=== PATIENT | female | born 1955 | race Caucasian/White ===

== ENCOUNTER 2020-01-29 17:40 | Emergency (ER) | payer MEDICARE, MEDICAID, SELFPAY ==
[2020-01-29] VITALS (17 sets, daily range): BP systolic 82–134; BP diastolic 51–97; PULSE 77–90; RESP 14–21; TEMP 36.4; O2SAT 93–100; BMI 36.4
--- NOTE | 2020-01-29 17:49 | CTR_ITS ---
PROCEDURE INFORMATION: Exam: CT Head Without Contrast Exam date and time: 01/29/2020 5:50 PM Age: 64 years old Clinical indication: Syncope and collapse; Patient HX: Syncope w fall this am C/O hitting top of head L of center; Additional info: Fall, hit head TECHNIQUE: Imaging protocol: Computed tomography of the head without contrast. Radiation optimization: All CT scans at this facility use at least one of these dose optimization techniques: automated exposure control; mA and/or kV adjustment per patient size (includes targeted exams where dose is matched to clinical indication); or iterative reconstruction. COMPARISON: CT head wo con* [id number] 03/03/2017 4:37 PM RADIATION DOSE METRICS: Total DLP (mGy-cm): 794.72 FINDINGS: Brain: There is moderate cortical atrophy. Low-density changes in the white matter are consistent with nonspecific small vessel chronic ischemic change. There is no intracranial mass, hemorrhage or edema. Small old lacunar infarcts of seen in the basal ganglia and burdick radiata bilaterally. Cerebral ventricles: No ventriculomegaly. Bones/joints: Unremarkable. No acute fracture. Paranasal sinuses: There is opacification of visualized portions of the maxillary ethmoid and frontal and sphenoid sinuses in keeping with pansinusitis. Mastoid air cells: Visualized mastoid air cells are well aerated. Soft tissues: Unremarkable. CT/CT head wo con* [id number] IMPRESSION: 1. Old lacunar disease. No acute intracranial finding. 2. Pansinusitis. Radiation Dose CTDIVOL = (mGy): DLP = 794.72 (mGy-cm)
--- NOTE | 2020-01-29 17:49 | XRR_ITS ---
PROCEDURE INFORMATION: Exam: XR Chest, 1 View Exam date and time: 01/29/2020 6:03 PM Age: 64 years old Clinical indication: Cough and other: Syncope; Patient HX: C/O multiple syncope episode w n/v - persistent cough x 3 weeks; Additional info: Vomiting, syncope TECHNIQUE: Imaging protocol: XR of the chest Views: 1 view. COMPARISON: CR Chest 2 views* [id number] 06/24/2017 10:13 AM FINDINGS: Lungs: Unremarkable. No consolidation. Pleural space: Unremarkable. No pleural effusion. No pneumothorax. Heart/Mediastinum: Unremarkable. No cardiomegaly. Bones/joints: Metallic pins seen in the right proximal humerus stable since prior examination XR/XR chest 1V portable [id number] IMPRESSION: 1. No acute findings. 2. Metallic pins right proximal humerus
--- NOTE | 2020-01-29 17:50 | ED_ITS ---
HPI - Syncope General: Stated Complaint: ANXIETY; SYNCOPE Time Seen by Provider: 01/29/20 17:42 History of Present Illness: HPI narrative: This patient is a 64-year-old female who comes in today after multiple episodes of passing out. She said she is passed out 3 times since last night. These typically occur when she has been standing for a while. She develops nausea and then sometimes vomiting. Things become black and she passes out. Today she fell and struck the back of her head. She said she started having problems with passing out a few months ago and has had a few episodes. She saw a neurologist and was told there was nothing wrong with her brain. She has not had a cardiology work-up. She is a diabetic. She says that for the past 3 days she has not been able to eat because she has no appetite. She has had episodes of nausea and vomiting over that period of time. She denies any exposure to Covid. She has not had a fever. She has had a cough but it has been there for about 3 weeks. It started out productive and now is dry. She said she was tested for Covid but it has been sometime since the test. She is not sure how long. She denies chest pain. No diarrhea. No change in urinary habits. No leg pain or swelling. complaint: loss of consciousness Onset (ago): day(s) (3 times in the past day) Prodromal symptoms: vision changes, lightheaded and nausea/vomiting Context: standing up Injuries sustained associated with event: head Associated symptoms: Reports nausea and weakness; Deny chest pain, fever(s) or headache(s) Review of Systems General: Reports: 10 or more systems reviewed and unremarkable except in HPI and below Const: Reports: fatigue and malaise; Denies: fever(s) or chills Eyes: Denies: change in vision ENMT: Denies: odynophagia Card: Denies: chest pain or swelling of feet/ankles Resp: Reports: productive cough; Denies: dyspnea or non-productive cough GI: Reports: nausea and vomiting; Denies: diarrhea : Denies: flank pain or difficulty voiding Musc: Denies: neck pain or back pain Skin/Breast: Denies: rash Neuro: Denies: headache(s), numbness in extremities or weakness in extremities Joe/Lymph: Denies: easy bruising or easy bleeding Physical Exam Const: COMMON NORMALS: no acute distress, patient oriented x3, no limitations and alert GENERAL APPEARANCE: cooperative and comfortable HENMT: HEAD & SCALP: normal to inspection FACE & SINUS: normal facial exam Eye: GENERAL EYE: appearance normal, both eyes and all related structures Neck/C-Spine: COMMON NORMALS: supple, no meningeal signs and no JVD Chest: COMMONS NORMALS: normal inspection of the chest Resp: COMMON NORMALS: normal respiratory effort, No use of accessory muscles and clear to auscultation bilaterally AUSCULTATION: clear to auscultation bilaterally Cardio: COMMON NORMALS: no JVD, regular rate, regular rhythm and No murmurs present (Cardio) RATE: regular rate RHYTHM: regular rhythm GI: COMMON NORMALS: Normal to inspection, nondistended, normoactive bowel sounds present and Soft to palpation INSPECTION: Yes normal to inspection AUSCULTATION: Yes normoactive bowel sounds PALPATION: Yes Soft to palpation and Yes Tenderness to palpation present (GI) (Epigastric area) Back/Pelvis: COMMON NORMALS: thoracic and lumbar spine normal to inspection Extremity: COMMON NORMALS: normal to inspection Neuro: COMMON NORMALS: patient oriented x3, moves all extremities, no focal motor deficits and no sensory deficits noted SENSORIUM/ORIENTATION: Yes alert MENINGEAL SIGNS: Yes no meningeal signs Psych: COMMON NORMALS: mental status grossly normal, cooperative and normal affect Skin: COMMON NORMALS: no rashes or lesions noted and turgor normal GENERAL SKIN EXAM: no rashes or lesions noted and turgor normal Course ED course: This is a diabetic patient who has had about 3 days of not eating well and some nausea and vomiting. She also has had a persistent cough for about 3 weeks. She does not have other Covid symptoms. She does not have any Covid exposures that she is aware of. She has had a syncopal episode 3 times in the past day. She was noted to be hypotensive by first responders with a blood pressure of about 88 systolic. Dehydration certainly could be contributing to this however it sounds like she has had some episodes of syncope with increasing frequency over the past several months. Cardiac work-up underway. I will turn her care over to Dr. Rai as it is shift change. Coding Level of Care Code ED Milk Powder Grinder for Adryan Kwok
[2020-01-29] MEDS: sodium chloride 0.9% 1,000 ML 999 ML IV ×2 (18:00→19:56)
--- NOTE | 2020-01-29 18:07 | CTR_ITS ---
PROCEDURE INFORMATION: Exam: CT Angiography Chest With Contrast Exam date and time: 01/29/2020 7:20 PM Age: 64 years old Clinical indication: Nausea and vomiting; Prior surgery; Surgery date: 6+ months; Surgery type: Hyst, gb; Patient HX: C/O cough x 3 weeks - n/v; Additional info: Cough, abdominal pain TECHNIQUE: Imaging protocol: Computed tomographic angiography of the chest with intravenous contrast. 3D rendering (Not supervised by radiologist): MIP and/or 3D reconstructed images were created by the technologist. Radiation optimization: All CT scans at this facility use at least one of these dose optimization techniques: automated exposure control; mA and/or kV adjustment per patient size (includes targeted exams where dose is matched to clinical indication); or iterative reconstruction. Contrast material: VISI 320; Contrast volume: 95 ml; Contrast route: INTRAVENOUS (IV); COMPARISON: CTA Chest-Pulmonary Emb [id number] 02/03/2014 5:55 PM RADIATION DOSE METRICS: Total DLP (mGy-cm): 1893.51 FINDINGS: Pulmonary arteries: There is no evidence of filling defects within the pulmonary arterial circulation to suggest pulmonary embolism. Aorta: Unremarkable. No aortic aneurysm. No aortic dissection. Lungs: Bilateral pulmonary nodules are not significantly changed compared with 02/03/2014. There is also bilateral hilar and subcarinal adenopathy not changed other than some increase in calcification of some right hilar nodes. These findings most likely related to sarcoidosis but could be related to other infectious or granulomatous disease. Given the complete lack of change in 6 years, malignancy is unlikely. Correlation with clinical history is suggested. Pleural space: Unremarkable. No pneumothorax. No pleural effusion. Heart: There is very small pericardial effusion. Lymph nodes: See Lungs finding. Bones/joints: There is degenerative change in the thoracic spine. Soft tissues: Unremarkable. IMPRESSION: 1. No evidence of pulmonary embolism. 2. Mediastinal hilar adenopathy and pulmonary nodules not changed in 6 years. Findings may represent sarcoidosis. PROCEDURE INFORMATION: Exam: CT Abdomen And Pelvis With Contrast Exam date and time: 01/29/2020 7:20 PM Age: 64 years old Clinical indication: Nausea and vomiting; Prior surgery; Surgery date: 6+ months; Surgery type: Hyst, gb; Patient HX: C/O cough x 3 weeks - n/v; Additional info: Cough, abdominal pain TECHNIQUE: Imaging protocol: Computed tomography of the abdomen and pelvis with intravenous contrast. Radiation optimization: All CT scans at this facility use at least one of these dose optimization techniques: automated exposure control; mA and/or kV adjustment per patient size (includes targeted exams where dose is matched to clinical indication); or iterative reconstruction. Contrast material: VISI 320; Contrast volume: 95 ml; Contrast route: INTRAVENOUS (IV); COMPARISON: 1. CTA Chest-Pulmonary Emb [id number] 02/03/2014 5:[address] Abdomen/Pelvis w[place] [id number] 09/04/2009 1:55:26 PM RADIATION DOSE METRICS: Total DLP (mGy-cm): 1893.51 FINDINGS: Liver: Normal. No mass. Gallbladder and bile ducts: There has been a cholecystectomy. There is mild intrahepatic biliary tract dilatation which is not unusual post cholecystectomy. Pancreas: The pancreas is normal. Spleen: The spleen is normal. Adrenals: The adrenal glands are normal. The adrenal glands are normal. Kidneys and ureters: The kidneys are normal. There is no evidence of hydronephrosis. There is no evidence of renal or ureteral calcifications. Stomach and bowel: There is no evidence of colitis/diverticulitis. Appendix: Not identified Intraperitoneal space: There is no evidence of free intraperitoneal fluid. Vasculature: Unremarkable. No abdominal aortic aneurysm. Lymph nodes: Unremarkable. No enlarged lymph nodes. Urinary bladder: There is mild thickening of the urinary bladder wall which could be due to low bladder volume but one could not exclude urinary tract infection. Please correlate with clinical symptoms. Reproductive: There has been a hysterectomy. Bones/joints: The lumbar spine demonstrates mild degenerative changes at multiple levels. Soft tissues: Unremarkable. CT/CT angio chest w abd pel w con IMPRESSION: No acute findings in the abdomen or pelvis. Radiation Dose CTDIVOL = (mGy): DLP = 1893.51~1893.51 (mGy-cm)
--- NOTE | 2020-01-29 19:05 | PC.NURSE ---
1 liter of fluids per ems hanging
[2020-01-29 19:32] LABS: Basophils # 0.1 10^3/uL (0.0-0.1); Basophils % 0.8 %; Eosinophils # 0.4 10^3/uL (0.0-0.8); Eosinophils % 2.9 %; Hematocrit 43.4 % (37.0-47.0); Lymphocytes # 3.1 10^3/uL (0.8-4.8); Lymphocytes % 23.9 %; Mean Corpuscular HGB Conc 32.3 g/dL (30.0-36.0); Mean Corpuscular Hemoglobin 26.5 pg (28.0-34.0); Mean Corpuscular Volume 82.2 fL (81-99); Mean Platelet Volume 10.5 fL (7.4-10.4); Monocytes # 0.8 10^3/uL (0.2-0.9); Neutrophils # 8.56 10^3/uL (1.8-7.7); Neutrophils % 66.1 %; Nucleated Red Blood Cells % 0 %; Platelet Count 313 10^3/cmm (130-400); Red Blood Count 5.28 10^6/uL (4.1-5.3); Red Cell Distribution Width 13.2 % (12.1-15.1)
[2020-01-29 19:37] LABS: Add Urine Microscopic? NO
--- NOTE | 2020-01-29 19:49 | ECG_ITS ---
[facility] Test Date: 2020-01-29 Pat Name: Katerine Moss Department: Room: Gender: Female Linen Keeper: : 1955 Requested By: Jyoti Jade Order Number: [id number] Mayelin MD: David Winn M.D. Measurements Intervals [place] Rate: 83 P: 41 WV: 206 QRS: -80 QRSD: 114 T: 74 QT: 408 QTc: 482 Interpretive Statements SINUS RHYTHM LOW QRS VOLTAGE [QRS DEFLECTION < 0.5/1.0 mV IN LIMB/CHEST LEADS] ANTERIOR MYOCARDIAL INFARCTION [40+ ms Q WAVE AND/OR ST/T ABNORMALITY IN V3/V4], OF INDETERMINATE AGE INFERIOR MYOCARDIAL INFARCTION [40+ ms Q WAVE AND/OR ST/T ABNORMALITY IN II/aVF], PROBABLY OLD No previous ECG available for comparison Electronically Signed On 01-30-2020 21:45:15 CDT by Davdi Winn M.D. [id number]
[2020-01-29 19:59] LABS: Bilirubin Urine 1+ (Negative); Blood Urine Neg (Negative); Glucose Urine UA Norm (Normal); Ketones Urine 1+ (Negative); Leukocyte Esterase Urine Negative (Negative); Nitrate Urine Negative (Negative); Protein Urine Neg (Negative); Specific Gravity, Urine 1.025 (1.005-1.030); Urine Appearance Clear (CLEAR); Urine Color Yellow (Yellow); Urobilinogen Urine Norm (Negative); pH Urine 5 (5-7)
[2020-01-29 20:01] LABS: Alanine Aminotransferase 17 U/L (0-33); Albumin Level 3.9 g/dL (3.5-5.2); Alkaline Phosphatase 75 IU/L (35-105); Aspartate Amino Transferase 23 U/L (0-32); Blood Urea Nitrogen 18 mg/dL (8-23); Calcium 9.4 mg/dL (8.5-10.5); Carbon Dioxide 26 mmol/L (22-29); Chloride 102 mmol/L (98-107); Globulin 2.3 g/dL (1.3-4.6); Glomerular Filtration Rate 41.4 mL/min (90-130); Glucose 134 mg/dL (65-115); Lipase 24 U/L (13-60); Magnesium 1.4 mg/dL (1.7-2.3); Osmolality Calculated 298 mOsm/kg (285-295); Sodium 142 mmol/L (136-145); Total Bilirubin 0.4 mg/dL (0.15-1.2); Total Protein 6.2 g/dL (6.6-8.7)
[2020-01-29 20:02] LABS: Lactic Sepsis W/Reflex 1.5 mmol/L (0.5-2.2)
[2020-01-29 20:03] LABS: Troponin(5th) Baseline 9 ng/L (0-10)
[2020-01-29 20:09] LABS: Anion Gap 18.1 (5-19); Ketone (Acetest) Serum Negative (Negative); Potassium 4.1 mmol/L (3.5-5.1)
[2020-01-29] MEDS: iodixanol 320 mg/mL 100mL Btl IV (20:23)
[2020-01-29 23:04] LABS: Troponin 5 2HR 9.29 ng/L (0-10); Troponin 5 2HR Delta 0.29 ABS# (0-10)
== END 2020-01-29 23:25 | disposition home or self-care (01) ==
PROVIDERS: Emergency Medicine; Emergency Provider Emergency Medicine; PCP Family Medicine
DX: F41.9 Anxiety disorder, unspecified (principal); R55 Syncope and collapse
CPT/HCPCS: 12345; 70450; 71045; 71275; 74177; 80053; 81003; 82009; 83605; 83690; 83735; 84484; 85025; 93005; 96360; 96361; 99284; J7030; Q9967

== ENCOUNTER 2021-05-23 15:37 | Inpatient (IN) | payer MEDICARE, MEDICAID, SELFPAY ==
[2021-05-23] VITALS (8 sets, daily range): BP systolic 111–135; BP diastolic 60–93; PULSE 85–110; RESP 19–26; TEMP 36.7; O2SAT 83–112; BMI 33.2
--- NOTE | 2021-05-23 16:11 | ECG_ITS ---
[facility] Test Date: 2021-05-23 Pat Name: Katerine Moss Department: Room: Gender: Female Online Facilitator: : 1955 Requested By: Avinash Jade Order Number: [id number] Reading MD: ROBERTA MENDOZA Measurements Intervals [place] Rate: 110 P: 50 SC: 200 QRS: -58 QRSD: 100 T: 76 QT: 352 QTc: 476 Interpretive Statements SINUS TACHYCARDIA INFERIOR MYOCARDIAL INFARCTION , OF INDETERMINATE AGE [40+ ms Q WAVE AND/OR ST/T ABNORMALITY IN II/aVF] ANTEROLATERAL MYOCARDIAL INFARCTION , OF INDETERMINATE AGE [40+ ms Q WAVE IN I/aVL/V3-V6] Compared to ECG 01/29/2020 19:21:13 Sinus rhythm no longer present Myocardial infarct finding still present Electronically Signed On 05-23-2021 21:47:23 BACK SEAM STITCHER by ROBERTA MENDOZA [id number]
--- NOTE | 2021-05-23 16:11 | XRR_ITS ---
PROCEDURE INFORMATION: Exam: XR Chest Exam date and time: 05/23/2021 4:11 PM Age: 65 years old Clinical indication: Shortness of breath; Additional info: Dyspnea TECHNIQUE: Imaging protocol: XR of the chest. Views: 1 view. COMPARISON: CR XR chest 1V portable [id number] 01/29/2020 5:54 PM FINDINGS: Lungs: Multiple, bilateral ill-defined interstitial opacities. More focal alveolar airspace disease in the right upper lobe and left lower lobe. Pleural spaces: No pleural effusion. No pneumothorax. Heart/Mediastinum: Stable moderate enlargement of the cardiac silhouette. Mediastinal contours are unremarkable. Bones/joints: Patient has had a previous right rotator cuff repair. Degenerative changes in the spine and shoulders. Osseous findings are stable. XR/XR chest 1V portable [id number] IMPRESSION: 1. Multiple, bilateral ill-defined interstitial opacities. More focal alveolar airspace disease in the right upper lobe and left lower lobe. Findings are suspicious for pneumonia, including atypical organisms. Recommend followup chest imaging to insure resolution of these findings. 2. Incidental/nonacute findings are listed in the report.
--- NOTE | 2021-05-23 16:54 | ED_ITS ---
HPI - COVID General: Chief Complaint: COVID symptoms Stated Complaint: SOB, BODY ACHE Time Seen by Provider: 05/23/21 16:10 Triage information: Has fever, cough or shortness of breath . Exposure to COVID + person last 14 days History of Present Illness: 41-year-old female tested positive for COVID 4 days ago she tested positive on the day she began to have symptoms. She has had progressive cough myalgias. She has not had a productive cough. She has had some loose stools she presented here with the O2 sats in the 70s on room air and on 4 L as low as 83%. She is cyanotic and lethargic. She is also tachycardic and tachypneic she is still actively coughing. MD complaint: has COVID symptoms Prior covid testing: no COVID 19 common symptoms: positive fever(s), chills, cough, non-productive cough, dyspnea, fatigue, body aches, headache(s), loss of sense of smell and/or taste, throat pain, nasal congestion, nausea and diarrhea COVID 19 other sytmptoms: positive requiring more oxygen; negative chest pain Onset (ago): hour(s) Severity: moderate Pertinent comorbid conditions: diabetes, COPD/respiratory disease and obesity Treatment prior to arrival: none COVID Results: SARS-CoV-2 (PCR) Detected (NOT DETECT) A 05/23/21 23:19 05/23/21 Coronavirus Type 229E (PCR) Not detected (NOT DETECT) 05/23/21 23:19 05/23/21 Review of Systems Const: Reports: fever(s), chills, body aches and fatigue ENMT: Reports: throat pain and nasal congestion Card: Denies: chest pain, edema, dyspnea on exertion or orthopnea Resp: Reports: dyspnea and non-productive cough GI: Reports: nausea and diarrhea : Denies: flank pain, difficulty voiding, dysuria, urinary frequency or urinary urgency Skin/Breast: Denies: rash or pruritus Neuro: Reports: headache(s) PFSH ED PFSH: Medical History (Updated 05/28/21 @ 15:00 by Avinash Gonzalez DO) Depression HLD (hyperlipidemia) HTN (hypertension) with goal to be determined Peptic ulcer disease Sarcoidosis of lung Type 2 diabetes mellitus Surgical History (Updated 05/24/21 @ 16:22 by Fernando Benitez MD) History of cholecystectomy Knee joint replacement status Family History (Updated 05/23/21 @ 20:13 by Hiren Miranda MD) Mother Diabetes CHF (congestive heart failure) Social History (Updated 05/23/21 @ 20:13 by Hiren Miranda MD) Smoking and tobacco status: former smoker Alcohol intake: never Substance/Drug Use: never Physical Exam Const: COMMON NORMALS: no acute distress GENERAL APPEARANCE: cooperative and comfortable ORIENTATION/CONSCIOUSNESS: Yes awake, Yes oriented to person, Yes oriented to place and Yes oriented to time HENMT: COMMON NORMALS: normocephalic, atraumatic and hearing grossly normal bilaterally HEAD & SCALP: normocephalic and atraumatic Neck/C-Spine: COMMON NORMALS: no JVD Resp: AUSCULTATION: crackles, wheezes and diminished lung sounds Cardio: COMMON NORMALS: no JVD, regular rate, regular rhythm and No murmurs present (Cardio) RATE: regular rate RHYTHM: regular rhythm GI: COMMON NORMALS: Soft to palpation and No hepatosplenomegaly present AUSCULTATION: Yes normoactive bowel sounds PALPATION: Yes Soft to palpation, No Tenderness to palpation present (GI), No Guarding due to palpation present (GI) and Yes No hepatosplenomegaly present Extremity: COMMON NORMALS: normal to inspection, capillary refill normal, no clubbing, cyanosis or edema, no calf tenderness and no pedal edema Neuro: SENSORIUM/ORIENTATION: Yes oriented to person, Yes oriented to place and Yes oriented to time Skin: COMMON NORMALS: no rashes or lesions noted GENERAL SKIN EXAM: no rashes or lesions noted Course Vital Signs: Vital signs: Vital Signs Temperature 98.2 F 05/28/21 12:00 Pulse Rate 81 05/28/21 12:00 Respiratory Rate 16 05/28/21 12:00 Blood Pressure 131/73 05/28/21 12:00 Pulse Oximetry 99 05/28/21 12:00 MDM - COVID Medical Decision Making Acute respiratory failure with hypoxia. Initially patient was satting in the 80s on 4 L. We will switch her to heated high flow. Start remdesivir and dexamethasone discussed with hospitalist orders written labs and imaging reviewed. Medical Records I reviewed the patient's medical records. Lab Data I reviewed the patient's lab results. : 05/28/21 04:41 05/28/21 04:41 Radiology Impressions Chest CTA 05/23/21 19:55 IMPRESSION: 1. Bilateral geographic ground-glass opacities with consolidation and air bronchograms consistent with moderate bilateral COVID-19 pneumonia versus other pneumonia. 2. [id number] mediastinal adenopathy with mild bilateral hilar adenopathy most consistent with reactive adenopathy. 3. 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 Axial series 2, image 393. 4. No pulmonary embolus or aortic dissection. Chest X-Ray 05/27/21 06:00 IMPRESSION: Patchy bilateral pulmonary infiltrates are stable compared to May 25, 2021. No progression. Laboratory Results WBC Cancelled 05/23/21 19:15 Corrected WBC Cancelled 05/23/21 19:15 RBC Cancelled 05/23/21 19:15 Hgb Cancelled 05/23/21 19:15 Hct Cancelled 05/23/21 19:15 MCV Cancelled 05/23/21 19:15 MCH Cancelled 05/23/21 19:15 MCHC Cancelled 05/23/21 19:15 RDW Cancelled 05/23/21 19:15 Plt Count Cancelled 05/23/21 19:15 MPV Cancelled 05/23/21 19:15 Gran % Cancelled 05/23/21 19:15 Neut % (Auto) Cancelled 05/23/21 19:15 Lymph % (Auto) Cancelled 05/23/21 19:15 [place] % (Auto) Cancelled 05/23/21 19:15 Eos % (Auto) Cancelled 05/23/21 19:15 Baso % (Auto) Cancelled 05/23/21 19:15 Neut # (Auto) Cancelled 05/23/21 19:15 Lymph # (Auto) Cancelled 05/23/21 19:15 [place] # (Auto) Cancelled 05/23/21 19:15 Eos # (Auto) Cancelled 05/23/21 19:15 Baso # (Auto) Cancelled 05/23/21 19:15 Absolute Gran (auto) Cancelled 05/23/21 19:15 Nucleated RBC % (auto) Cancelled 05/23/21 19:15 Nucleated RBCs # Cancelled 05/23/21 19:15 D-Dimer 4.49 ug/mIFEU (0-0.59) H 05/23/21 19:15 Specimen Type Arterial 05/23/21 16:53 Sample Site Brachial, left 05/23/21 16:53 ABG pH 7.49 (7.35-7.45) H 05/23/21 16:53 ABG pCO2 30.1 mmHg (35-45) L 05/23/21 16:53 ABG pO2 52.4 mmHg (80.0-100.0) L 05/23/21 16:53 ABG HCO3 22.7 mmol/L (22-26) 05/23/21 16:53 ABG O2 Saturation 86.1 05/23/21 16:53 ABG Base Excess 0.2 mmol/L (-2.0-2.0) 05/23/21 16:53 [place] Test N/a 05/23/21 16:53 A-a O2 Gradient 7.7 mmHg (5-10) 05/23/21 16:53 Hematocrit 41.9 % (37-47) 05/23/21 16:53 Hgb O2 Saturation 85.2 % (95-100) L 05/23/21 16:53 Carboxyhemoglobin 0.3 %THgb (0.4-20.1) L 05/23/21 16:53 Methemoglobin 0.8 % (0.4-1.5) 05/23/21 16:53 Total Hemoglobin 13.7 g/dL (12-16) 05/23/21 16:53 Sodium 141.0 mmol/L (131-143) 05/23/21 16:53 Potassium 3.2 mmol/L (3.5-5.0) L 05/23/21 16:53 Glucose 162.0 mg/dL (70-115) H 05/23/21 16:53 Ionized Calcium 1.2 mmol/L (1.1-1.4) 05/23/21 16:53 O2 Delivery Device Nc 05/23/21 16:53 O2 Liters/Min 7.0 % 05/23/21 16:53 Childrens Club Attendant ID [id number] 05/23/21 16:53 Sodium 136 mmol/L (136-145) 05/23/21 17:50 Potassium 3.7 mmol/L (3.5-5.1) 05/23/21 17:50 Chloride 102 mmol/L (98-107) 05/23/21 17:50 Carbon Dioxide 18 mmol/L (22-29) L 05/23/21 17:50 Anion Gap 19.7 (5-19) H 05/23/21 17:50 BUN 24 mg/dL (8-23) H 05/23/21 17:50 Creatinine 0.7 mg/dL (0.5-0.9) 05/23/21 17:50 GFR Calculation 84.2 mL/min (90-130) L 05/23/21 17:50 Glucose 157 mg/dL (65-115) H 05/23/21 17:50 Calculated Osmolality 289 mOsm/kg (285-295) 05/23/21 17:50 Lactic Acid 1.9 mmol/L (0.5-2.2) 05/23/21 19:15 Calcium 9.8 mg/dL (8.5-10.5) 05/23/21 17:50 Total Bilirubin 0.6 mg/dL (0.15-1.2) 05/23/21 17:50 AST 36 U/L (0-32) H 05/23/21 17:50 ALT 29 U/L (0-33) 05/23/21 17:50 Alkaline Phosphatase 102 IU/L (35-105) 05/23/21 17:50 Troponin T Baseline 10 ng/L (0-10) 05/23/21 19:15 C-Reactive Protein 255.5 mg/L (0.0-4.9) H 05/23/21 17:50 Total Protein 7.8 g/dL (6.6-8.7) 05/23/21 17:50 Albumin 2.1 g/dL (3.5-5.2) L 05/23/21 17:50 Globulin 5.7 g/dL (1.3-4.6) H 05/23/21 17:50 Procalcitonin 0.17 ng/mL (0-0.5) 05/23/21 17:50 SARS-CoV-2 (PCR) Detected (NOT DETECT) A 05/23/21 23:19 05/23/21 Coronavirus Type 229E (PCR) Not detected (NOT DETECT) 05/23/21 23:19 05/23/21 Discharge Plan Discharge Patient Disposition: Admitted As Inpatient Admit Provider: Fernando Benitez Clinical Impression: Acute respiratory failure with hypoxia, Pneumonia due to COVID-19 virus, Type 2 diabetes mellitus, HTN (hypertension) with goal to be determined, Acute encephalopathy Condition: Stable Coding Level of Care Code ED Drug Regulatory Affairs Specialist for Adryan Kwok
[2021-05-23 17:04] LABS: ABG PCO2 30.1 mmHg (35-45); ABG PH Result 7.49 (7.35-7.45); Alveolar-Arterial Oxygen Gradi 7.7 mmHg (5-10); Arterial Blood Gas Hematocrit 41.9 % (37-47); Base Excess ABG 0.2 mmol/L (-2.0-2.0); Blood Gas Operator Identificat AMH; Blood Gas Sample Site Brachial, left; Blood Gas Sample Type Arterial; Carboxyhemoglobin 0.3 %THgb (0.4-20.1); HCO3 ABG 22.7 mmol/L (22-26); HGB O2 Sat 85.2 % (95-100); Ionized Calcium Level - ABG 1.2 mmol/L (1.1-1.4); Methemoglobin 0.8 % (0.4-1.5); Oxygen Device NC; Oxygen Saturation ABG 86.1; PO2 ABG 52.4 mmHg (80.0-100.0); Potassium Level - ABG 3.2 mmol/L (3.5-5.0); Total Hemoglobin 13.7 g/dL (12-16)
[2021-05-23] MEDS: dexamethasone 10 mg/mL INJ 6 MG IVP (18:02)
[2021-05-23] MEDS: remdesivir 200 MG in sodium chloride 0.9% (100 ml) 60 ML 100 MG IV (19:01)
[2021-05-23 19:14] LABS: Alanine Aminotransferase 29 U/L (0-33); Albumin Level 2.1 g/dL (3.5-5.2); Alkaline Phosphatase 102 IU/L (35-105); Blood Urea Nitrogen 24 mg/dL (8-23); C Reactive Protein 255.5 mg/L (0.0-4.9); Calcium 9.8 mg/dL (8.5-10.5); Carbon Dioxide 18 mmol/L (22-29); Chloride 102 mmol/L (98-107); Globulin 5.7 g/dL (1.3-4.6); Glomerular Filtration Rate 84.2 mL/min (90-130); Glucose 157 mg/dL (65-115); Osmolality Calculated 289 mOsm/kg (285-295); Sodium 136 mmol/L (136-145); Total Bilirubin 0.6 mg/dL (0.15-1.2); Total Protein 7.8 g/dL (6.6-8.7)
[2021-05-23 19:18] LABS: Anion Gap 19.7 (5-19); Aspartate Amino Transferase 36 U/L (0-32); Potassium 3.7 mmol/L (3.5-5.1)
[2021-05-23 19:20] LABS: Procalcitonin 0.17 ng/mL (0-0.5)
--- NOTE | 2021-05-23 19:55 | ECG_ITS ---
[facility] Test Date: 2021-05-23 Pat Name: Katerine Moss Department: Room: 271 Gender: Female Inside Sales Consultant: : 1955 Requested By: Hiren Miranda Order Number: [id number] Reading MD: ROBERTA MENDOZA Measurements Intervals [place] Rate: 90 P: 77 CO: 209 QRS: -52 QRSD: 94 T: 63 QT: 400 QTc: 490 Interpretive Statements SINUS RHYTHM ANTERIOR MYOCARDIAL INFARCTION , OF INDETERMINATE AGE [40+ ms Q WAVE AND/OR ST/T ABNORMALITY IN V3/V4] INFERIOR MYOCARDIAL INFARCTION , PROBABLY OLD [40+ ms Q WAVE AND/OR ST/T ABNORMALITY IN II/aVF] Compared to ECG 05/23/2021 17:05:06 Sinus tachycardia no longer present Myocardial infarct finding still present Electronically Signed On 05-23-2021 21:47:18 QUESTIONED DOCUMENTS EXAMINER by ROBERTA MENDOZA [id number]
--- NOTE | 2021-05-23 19:55 | CTR_ITS ---
PROCEDURE INFORMATION: Exam: CTA Chest With Contrast Exam date and time: 05/23/2021 7:55 PM Age: 65 years old Clinical indication: Abnormal findings; Abnormal diagnostic tests; Elevated d-dimer; Cough and shortness of breath; Prior surgery; Surgery type: Gb; Patient HX: Cough with SOB. Elevated d dimer. Pending covid results. TECHNIQUE: Imaging protocol: Computed tomographic angiography of the chest with contrast. 3D rendering (Not supervised by radiologist): MIP and/or 3D reconstructed images were created by the technologist. Radiation optimization: All CT scans at this facility use at least one of these dose optimization techniques: automated exposure control; mA and/or kV adjustment per patient size (includes targeted exams where dose is matched to clinical indication); or iterative reconstruction. Contrast material: OMNI 350; Contrast volume: 55 ml; Contrast route: INTRAVENOUS (IV); COMPARISON: CT angio chest w abd pel w con 01/29/2020 8:16 PM RADIATION DOSE METRICS: Total DLP (mGy-cm): 835.39 FINDINGS: Pulmonary arteries: No pulmonary embolus or aortic dissection. Aorta: See Pulmonary arteries finding. Lungs: Bilateral geographic ground-glass opacities with consolidation and air bronchograms consistent with moderate bilateral COVID-19 pneumonia versus other pneumonia. Pleural spaces: Unremarkable. No pneumothorax. No pleural effusion. Heart: Unremarkable. No cardiomegaly. No pericardial effusion. Lymph nodes: Boin-qd-vsuxoerm mediastinal adenopathy with mild bilateral hilar adenopathy most consistent with reactive adenopathy. Calcified bilateral hilar nodes and/or mediastinal nodes and/or lung granulomas consistent with old granulomatous disease. Gallbladder and bile ducts: Stable cholecystectomy. Bones/joints: Large flowing multilevel hypertrophic vertebral body osteophytes consistent with diffuse idiopathic skeletal hyperostosis (DISH) syndrome. 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 Axial series 2, image 393. Soft tissues: Unremarkable. CT/CT angio chest PE protcl [id number] IMPRESSION: 1. Bilateral geographic ground-glass opacities with consolidation and air bronchograms consistent with moderate bilateral COVID-19 pneumonia versus other pneumonia. 2. Urvj-mo-ukxeisav mediastinal adenopathy with mild bilateral hilar adenopathy most consistent with reactive adenopathy. 3. 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 Axial series 2, image 393. 4. No pulmonary embolus or aortic dissection.
--- NOTE | 2021-05-23 19:57 | PM.HP ---
Providers/Chief Complaint Admitting Physician: Fernando Benitez MD Primary Care Provider: Cooper Villa Chief Complaint: SOB, BODY ACHE History of Present Illness Katerine Moss is a 65 year old female with a past medical history of type 2 diabetes mellitus, hypertension, hyperlipidemia, pulmonary sarcoidosis, former smoker, history of CVA, history of CAD, no history of COPD or asthma who presents [facility] due to shortness of breath, cough, fevers, fatigue, malaise. Currently patient alert to person, to place, not to time she does become confused quite easily, I have to repeat my questions multiple times, does require reorientation, but does answer most questions. She tells me that she tested positive for Covid 4 days ago, has not been vaccinated for COVID, has received flu vaccine, has received pneumonia vaccine, she has progressively felt increased fatigue, malaise, diarrhea, decreased appetite, now increasing shortness of breath, cough. Review of Systems Const: Reports: fever(s), chills, fatigue and malaise Eyes: Denies: change in vision or blurry vision ENMT: Denies: nasal congestion Card: Denies: chest pain or palpitations Resp: Reports: dyspnea and productive cough GI: Denies: abdominal pain, nausea, vomiting or hematemesis : Denies: flank pain, dysuria or urinary frequency Musc: Denies: neck pain or back pain Skin/Breast: Denies: rash Neuro: Denies: headache(s), dizziness or vertigo Endo: Denies: polyuria or polydipsia Medications/Allergies Home Medications Medication Instructions Recorded Confirmed Last Taken Type ondansetron HCl 4 mg tablet 4 mg PO Q6H PRN #10 tab 01/29/20 Unknown Rx (Zofran) Allergies Allergy/AdvReac Type Severity Reaction Status Date / Time Penicillins Allergy ALGY-Rash Verified 01/29/20 19:54 PFSH Acute PFSH: Medical History (Updated 05/23/21 @ 20:18 by Hiren Miranda MD) HLD (hyperlipidemia) HTN (hypertension) with goal to be determined Peptic ulcer disease Sarcoidosis of lung Type 2 diabetes mellitus Surgical History (Updated 05/23/21 @ 20:12 by Hiren Miranda MD) History of cholecystectomy Family History (Updated 05/23/21 @ 20:13 by Hiren Miranda MD) Mother Diabetes CHF (congestive heart failure) Social History (Updated 05/23/21 @ 20:13 by Hiren Miranda MD) Smoking and tobacco status: former smoker Alcohol intake: never Substance/Drug Use: never Vitals/I&O/Wt Last Vital Signs Pulse 95 05/23/21 19:10 Resp 26 H 05/23/21 19:10 BP 135/93 05/23/21 19:10 Pulse Ox 88 L 05/23/21 19:10 Physical Exam Const: COMMON NORMALS: no acute distress ORIENTATION/CONSCIOUSNESS: Yes awake, Yes oriented to person and Yes oriented to place; not oriented to time HENMT: COMMON NORMALS: normocephalic HEAD & SCALP: normocephalic Neck/C-Spine: COMMON NORMALS: no JVD Chest: COMMONS NORMALS: normal inspection of the chest Resp: COMMON NORMALS: normal respiratory effort, No retractions, No use of accessory muscles and clear to auscultation bilaterally AUSCULTATION: diminished lung sounds diffuse Cardio: COMMON NORMALS: no JVD, regular rate, regular rhythm, S1 normal heart sound present and S2 normal heart sound present RATE: regular rate RHYTHM: regular rhythm HEART SOUNDS: S1 normal heart sound present and S2 normal heart sound present GI: COMMON NORMALS: Normal to inspection, nondistended, normoactive bowel sounds present, Soft to palpation, non-tender, No hepatosplenomegaly present, no masses and no bruits PALPATION: Yes Soft to palpation and Yes No hepatosplenomegaly present Extremity: COMMON NORMALS: capillary refill normal, no clubbing, cyanosis or edema, no calf tenderness and no pedal edema Neuro: OTHER: Alert to person, to place, not to time, does follow commands, but does become become confused Psych: COMMON NORMALS: speech normal Urinary Catheter Management: Aleman: Cath Placed During This Visit: yes Urinary Catheter Date of Insertion: 05/23/21 Data : 05/23/21 17:50 05/23/21 17:50 A&P Assessment and plan (1) Sarcoidosis of lung: Status: Acute (2) HLD (hyperlipidemia): Status: Acute (3) HTN (hypertension) with goal to be determined: Status: Acute (4) Type 2 diabetes mellitus: Status: Acute (5) Acute encephalopathy: Status: Acute (6) Pneumonia due to COVID-19 virus: Status: Acute (7) Acute respiratory failure with hypoxia: Status: Acute Plan Acute encephalopathy secondary COVID-19 Acute hypoxic respiratory failure secondary COVID-19 -CT angiogram ordered -D-dimer, pro-Bhargav, CRP -Follow blood cultures, urine cultures, sputum cultures, urine bacterial antigens -Currently on heated high flow -Continue Rocephin azithromycin -Decadron day -Remdesivir day 1 of 5 -We will consider Actemra in the next 24 hours -Monitor respiratory status -Ipratropium, budesonide -Vitamin C, vitamin D, zinc -Lovenox for DVT prophylaxis -Patient is DNR/DNI, confirmed this with her multiple times Type 2 diabetes mellitus, she is not sure how much insulin she takes, will start her on moderate dose sliding scale A1c History of peptic ulcer disease, denies any history of transfusions, is on therapeutic Lovenox as above, monitor hemoglobin closely Attestations Medical Necessity Statement*: Patient requires hospitalization for COVID-19 pneumonia, acute hypoxic respiratory failure, inpatient, greater than 2 midnights Coding Level of Care Code Acute Speech Therapist Early Intervention for Chg Fwd Diagnoses Sarcoidosis of lung D86.0 HLD (hyperlipidemia) E78.5 HTN (hypertension) with goal to be determined I10 Type 2 diabetes mellitus E11.9 Acute encephalopathy G93.40 Pneumonia due to COVID-19 virus U07.1; J12.82 Acute respiratory failure with hypoxia J96.01
[2021-05-23 20:37] LABS: Lactic Sepsis W/Reflex 1.9 mmol/L (0.5-2.2)
[2021-05-23 21:07] LABS: D Dimer 4.49 ug/mIFEU (0-0.59); Troponin(5th) Baseline 10 ng/L (0-10)
[2021-05-23 21:55] LABS: Glucose Point of Care 241 mg/dL (70-110)
[2021-05-23 22:15] LABS: Basophils % 0.3 %; Eosinophils % 0.3 %; Hematocrit 37.1 % (37.0-47.0); Lymphocytes # 0.4 10^3/uL (0.8-4.8); Lymphocytes % 3.5 %; Mean Corpuscular HGB Conc 32.3 g/dL (30.0-36.0); Mean Corpuscular Hemoglobin 26.8 pg (28.0-34.0); Mean Corpuscular Volume 82.8 fl (81-99); Mean Platelet Volume 10.8 fL (7.4-10.4); Monocytes # 0.2 10^3/uL (0.2-0.9); Monocytes % 1.9 %; Neutrophils % 92.1 %; Nucleated Red Blood Cells % 0 %; Platelet Count 348 10^3/cmm (130-400); Red Blood Count 4.48 10^6/uL (4.1-5.3); Red Cell Distribution Width 14.1 % (12.1-15.1); White Blood Count 12.4 10^3/uL (4.0-10.0)
[2021-05-23] MEDS: insulin lispro 100 unit/1 mL SUBCUT (22:30)
[2021-05-23] MEDS: enoxaparin 40 mg/0.4 mL Syringe SUBCUT (22:31)
[2021-05-23 22:32] LABS: Estmated Average Glucose 180; Hemoglobin A1C 7.9 % (4.0-6.0)
[2021-05-23] MEDS: famotidine 20 mg/2 mL INJ IVP (22:32)
[2021-05-23 22:35] LABS: Troponin 5 2HR 10.15 ng/L (0-10); Troponin 5 2HR Delta 0.15 ABS# (0-10)
[2021-05-23] MEDS: azithromycin 500 MG in sodium chloride 0.9% 250 ML 250 MG IV (22:35)
[2021-05-23 22:41] LABS: Creatine Phosphokinase 33 U/L (26-192); NT Pro B Type Natriuretic Pept 430 pg/mL (0-125); Thyroid Stimulating Hormone 0.34 uIU/mL (0.27-4.20)
[2021-05-23 23:44] LABS: Add Urine Culture? Yes; Add Urine Microscopic? YES; Bacteria Urine TRACE /hpf; Bilirubin Urine 1+ (Negative); Blood Urine 3+ (Negative); Glucose Urine UA Norm (Normal); Ketones Urine 2+ (Negative); Leukocyte Esterase Urine 1+ (Negative); Nitrate Urine Negative (Negative); Protein Urine 1+ (Negative); Specific Gravity, Urine 1.025 (1.005-1.030); Squamous Epithelial Cell Urine 0-4 /hpf (0-5); Urine Appearance Clear (CLEAR); Urine Color Yellow (Yellow); Urobilinogen Urine 1 mg/dL (Negative); WBC Urine >100 /hpf (0-5); pH Urine 5 (5-7)
[2021-05-23 23:49] LABS: Influenza A by IFA Negative (Negative); Influenza B by IFA Negative (Negative)
[2021-05-24] VITALS (16 sets, daily range): BP systolic 99–135; BP diastolic 68–82; PULSE 65–106; RESP 17–24; TEMP 36.4–37.2; O2SAT 86–96
[2021-05-24] MEDS: iohexol 350 mg/mL 100 mL Btl IV (00:01)
[2021-05-24] MEDS: cefTRIAXone 1,000 MG in sodium chloride 0.9% (plus) 50 ML 100 MG IV ×2 (00:24→22:43)
[2021-05-24] MEDS: ipratropium-albuterol 3 mL Neb INHALATION ×6 (00:48→20:26)
[2021-05-24 01:23] LABS: Adenovirus Not Detected (NOT DETECT); Chlamydia Pneumoniae Not Detected (NOT DETECT); Coronavirus 229E,HKU1,NL63,OC4 Not Detected (NOT DETECT); Human Metapneumovirus Not Detected (NOT DETECT); Human Rhinovirus/Enterovirus Not Detected (NOT DETECT); Influenza A Not Detected (NOT DETECT); Influenza A H1 Not Detected (NOT DETECT); Influenza A H1-2009 Not Detected (NOT DETECT); Influenza A H3 Not Detected (NOT DETECT); Influenza B Not Detected (NOT DETECT); Mycoplasma Pneumoniae Not Detected (NOT DETECT); Parainfluenza Virus Type 1 Not Detected (NOT DETECT); Parainfluenza Virus Type 2 Not Detected (NOT DETECT); Parainfluenza Virus Type 3 Not Detected (NOT DETECT); Parainfluenza Virus Type 4 Not Detected (NOT DETECT); Respiratory Syncytial Virus A Not Detected (NOT DETECT); Respiratory Syncytial Virus B Not Detected (NOT DETECT); SARS-COV-2 Detected (NOT DETECT)
--- NOTE | 2021-05-24 01:48 | ECG_ITS ---
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: : 1955 Requested By: Hiren Miranda Order Number: [id number] Reading MD: ROBERTA MENDOZA Measurements Intervals [place] Rate: 80 P: 44 DC: 216 QRS: -53 QRSD: 96 T: 71 QT: 392 QTc: 452 Interpretive Statements SINUS RHYTHM WITH FIRST DEGREE AV BLOCK LEFT AXIS DEVIATION [QRS AXIS < -30] POSSIBLE ANTERIOR MYOCARDIAL INFARCTION , OF INDETERMINATE AGE [30 ms Q WAVE IN V3/V4, OR R < 0.2 mV IN V4] Compared to ECG 05/23/2021 20:14:45 First degree AV block now present Left-axis deviation now present Myocardial infarct finding still present Electronically Signed On 05-24-2021 22:56:19 MANUFACTURING LABORER by ROBERTA MENDOZA [id number]
[2021-05-24 03:09] LABS: Basophils % 0.3 %; Eosinophils % 0.1 %; Hematocrit 37.9 % (37.0-47.0); Hemoglobin 11.9 g/dL (11.5-15.3); Lymphocytes # 0.5 10^3/uL (0.8-4.8); Lymphocytes % 5.6 %; Mean Corpuscular HGB Conc 31.4 g/dL (30.0-36.0); Mean Corpuscular Hemoglobin 26.8 pg (28.0-34.0); Mean Corpuscular Volume 85.4 fl (81-99); Monocytes # 0.2 10^3/uL (0.2-0.9); Neutrophils # 8.35 10^3/uL (1.8-7.7); Neutrophils % 90.1 %; Nucleated Red Blood Cells % 0 %; Platelet Count 334 10^3/cmm (130-400); Red Blood Count 4.44 10^6/uL (4.1-5.3); White Blood Count 9.3 10^3/uL (4.0-10.0)
[2021-05-24 03:44] LABS: Procalcitonin 0.13 ng/mL (0-0.5)
[2021-05-24 03:56] LABS: Alanine Aminotransferase 25 U/L (0-33); Albumin Level 2.4 g/dL (3.5-5.2); Alkaline Phosphatase 88 IU/L (35-105); Blood Urea Nitrogen 24 mg/dL (8-23); Calcium 9.6 mg/dL (8.5-10.5); Carbon Dioxide 19 mmol/L (22-29); Chloride 102 mmol/L (98-107); Globulin 4.8 g/dL (1.3-4.6); Glomerular Filtration Rate 100.6 mL/min (90-130); Glucose 215 mg/dL (65-115); Magnesium 2.3 mg/dL (1.7-2.3); Osmolality Calculated 295 mOsm/kg (285-295); Phosphorus 2.9 mg/dL (2.5-4.5); Sodium 137 mmol/L (136-145); Total Bilirubin 0.3 mg/dL (0.15-1.2); Total Protein 7.2 g/dL (6.6-8.7)
[2021-05-24 03:58] LABS: Anion Gap 19.6 (5-19); Aspartate Amino Transferase 28 U/L (0-32); Potassium 3.6 mmol/L (3.5-5.1)
[2021-05-24 06:20] LABS: Glucose Point of Care 210 mg/dL (70-110)
[2021-05-24] MEDS: budesonide 0.5 mg/2 mL Neb INHALATION ×2 (08:26→20:26)
[2021-05-24] MEDS: zinc gluconate 50 mg Tablet PO (09:30)
[2021-05-24] MEDS: famotidine 20 mg/2 mL INJ IVP ×2 (09:30→20:19)
[2021-05-24] MEDS: ascorbic acid 500 mg Tablet PO ×2 (09:30→17:02)
[2021-05-24] MEDS: cholecalciferol (vitamin D3) 1,000 unit Tablet 1000 UNIT PO (09:30)
[2021-05-24] MEDS: insulin lispro 100 unit/1 mL SUBCUT ×2 (09:32→21:35)
--- NOTE | 2021-05-24 11:15 | USCV_ITS ---
Katerine Moss Age: 65 Gender: F : 1955 Exam Date: 05/24/2021 13:08 Ordering Phys: Fernando Benitez MD Technologist: Exam Location: [facility] [place]_ Indication: ? DVT PROCEDURES: Bilaterally, the common femoral, superficial femoral, profunda femoral, popliteal, posterior tibial, greater saphenous veins, and the peroneal trunk were identified and interrogated in the standard fashion. These veins were found to be easily compressible with spontaneous blood flow. No evidence of insufficiency or thrombus noted. FINDINGS: Normal 2-D Doppler and augmentation and compressibility throughout the lower extremity venous structures. Additional imaging through the proximal calf veins also reveals no thrombus. Limited evaluation of the greater saphenous vein is patent with no thrombus.. CONCLUSIONS No evidence of right lower extremity DVT. No evidence of left lower extremity DVT. Claude Martin MD (Electronically Signed) Final Date: 28 May 2021 11:55 S
--- NOTE | 2021-05-24 11:16 | USCV_ITS ---
Katerine Moss Age: 65 Gender: F : 1955 Exam Date: 05/24/2021 12:45 Ordering Phys: Fernando Benitez MD Technologist: Jane Moreno Exam Location: [facility] [place] Indication: CHEST PAIN BP: 129 / 81 HR: 87 Rhythm: Sinus Technical Quality: Adequate MEASUREMENTS (Male / Female) Normal Values 2D ECHO LV Diastolic Diameter PLAX 2.6 cm 4.2 - 5.9 / 3.9 - 5.3 cm LV Systolic Diameter PLAX 1.6 cm IVS Diastolic Thickness 1.1 cm 0.6 - 1.0 / 0.6 - 0.9 cm IVS Systolic Thickness 1.0 cm LVPW Diastolic Thickness 0.8 cm 0.6 - 1.0 / 0.6 - 0.9 cm LVPW Systolic Thickness 1.0 cm LVOT Diameter 2.0 cm LV Ejection Fraction 2D Teich 71.5 % LA Diameter 2.9 cm Aorta at Sinotubular Diameter 2.7 cm M-MODE Aortic Annulus Diameter 3.4 cm LA Ao Ratio MM 1.0 MV E Point Septal Separation 0.8 cm DOPPLER AV Peak Velocity 127.0 cm/s LVOT Peak Velocity 100.0 cm/s AV Area Cont Eq vti 2.9 cm squared AV Area Cont Eq pk 2.5 cm squared MV Area PHT 5.0 cm squared Mitral E to A Ratio 0.6 MV E' Velocity 35.5 cm/s Mitral E to MV E' Ratio 11.3 Mitral E to LV E' Lateral Ratio 8.2 Mitral E to LV E' Septal Ratio 18.1 TR Peak Velocity 113.0 cm/s TR Peak Gradient 5.1 mmHg TV Peak E Velocity 93.0 cm/s Right Atrial Pressure 3.0 mmHg Pulmonary Artery Systolic Pressu 8.1 mmHg PV Peak Velocity 128.3 cm/s RV Acceleration Time 0.1 s FINDINGS Left Ventricle Normal left ventricular size. LV systolic function is normal with EF of 60-65%. No regional wall motion abnormalities. Grade 1 diastolic dysfunction Right Ventricle The right ventricle is normal in size and function. Right Atrium Not well visualized Left Atrium Not well visualized Mitral Valve Mitral annular calcification, grossly normal is seen without significant stenosis or prolapse. There is trace mitral regurgitation. Aortic Valve Aortic valve is thickened without significant stenosis. There is no aortic regurgitation. Tricuspid Valve Not well visualized. Pulmonic Valve Not well-visualized Pericardium Trace pericardial effusion Aorta Not well visualized CONCLUSIONS Technically limited quality echocardiogram because of poor ultrasonic windows. LV systolic function is normal with EF of 60 to 65%. Grade 1 diastolic dysfunction. Mitral annular calcification is seen. Trace mitral regurgitation. Aortic valve is thickened without significant stenosis. Trace pericardial effusion is seen. Compared to prior echocardiogram from 06/24/2017, this pericardial effusion is now noted. Otherwise echo is unchanged. Howard Traylor MD (Electronically Signed) Final Date: 24 May 2021 17:38 S
[2021-05-24 14:20] LABS: Iron 22 ug/dL (37-145)
[2021-05-24 14:57] LABS: Percent Saturation 16.9 % (20-50); Total Iron Binding Capacity 130 mcg/dl; Unsaturated Iron Binding 108 ug/dL (112-347)
[2021-05-24 15:53] LABS: Bacillus cereus group Not Detected (NOT DETECT); Bacillus subtillis group Not Detected (NOT DETECT); Corynebacterium Not Detected (NOT DETECT); Cutibacterium acnes (P.acnes) Not Detected (NOT DETECT); Enterococcus Not Detected (NOT DETECT); Enterococcus faecalis Not Detected (NOT DETECT); Enterococcus faecium Not Detected (NOT DETECT); Lactobacillus species Not Detected (NOT DETECT); Listeria Not Detected (NOT DETECT); Listeria monocytogenes Not Detected (NOT DETECT); Micrococcus Not Detected (NOT DETECT); Pan Candida Not Detected (NOT DETECT); Pan Gram-Negative Not Detected (NOT DETECT); Staphylococcus epidermidis Detected (NOT DETECT); Staphylococcus lugdunensis Not Detected (NOT DETECT); Staphylococcus species Detected (NOT DETECT); Streptococcus agalactiae Not Detected (NOT DETECT); Streptococcus anginosus group Not Detected (NOT DETECT); Streptococcus pneumoniae Not Detected (NOT DETECT); Streptococcus pyogenes Not Detected (NOT DETECT); Streptococcus species Not Detected (NOT DETECT); mecA Detected (NOT DETECT); mecC Not Detected (NOT DETECT)
--- NOTE | 2021-05-24 16:14 | PM.PN ---
Subjective Subjective: Admitted overnight. Vitals/I&O/Wt Last Vital Signs Temp 97.7 F 05/24/21 12:00 Pulse 95 05/24/21 15:54 Resp 23 H 05/24/21 15:53 BP 99/68 05/24/21 12:00 Pulse Ox 92 05/24/21 15:53 05/24/21 05/24/21 05/24/21 06:59 14:59 22:59 Intake Total 820 / 880 480 / 480 Output Total 200 / 200 Balance 620 / 680 480 / 480 Weight last 48 hrs Weight 86.682 kg Weight 79.832 kg Physical Exam Urinary Catheter Management: Aleman: Cath Placed During This Visit: yes Reason for Continuing Indwelling Catheter: Acute Urinary Retention or Obstruction Urinary Catheter Date of Insertion: 05/23/21 Data : 05/24/21 02:01 05/24/21 02:01 Micro: Microbiology 05/23/21 19:15 Blood Culture - Preliminary Blood Gram positive cocci 05/23/21 19:15 Blood Culture - Preliminary Blood Gram positive cocci 05/23/21 23:19 Bacterial Antigens - Final Urine,Clean Catch 05/23/21 23:19 Legionella Urinary Antigen - Final Urine Catheterized A&P Assessment and plan (1) Staphylococcus aureus bacteremia with sepsis: Blood cultures from admission positive. 4 out of 4 bottles. Repeat blood cultures. MRSA swab. Keep mean artery pressure of 65. Patient already on ceftriaxone. Add vancomycin. If MRSA negative and depending on the culture sensitivities will de-escalate antibiotics. Status: Acute (2) Acute respiratory failure with hypoxia: Secondary to COVID-19 pneumonia Status: Acute (3) Pneumonia due to COVID-19 virus: As per the life partner patient tested positive around [address] [facility]. We will try to get the documents. Hypoxia secondary to COVID-19 pneumonia: Moderate disease. Oxygen supplementation keeping saturation over 88%. Dexamethasone 6 mg daily. Remdesivir to finish a 5-day course. Vitamin C, zinc. DuoNebs every 4 hour, budesonide twice daily Pulmonary toilet with incentive spirometry flutter valve as able We will monitor inflammatory markers including D-dimer, CRP every 48 hours. We will hold off on Actemra given positive blood cultures. D-dimer elevated. CTA negative for pulmonary embolism. For now we will start patient on full dose anticoagulation given high oxygen supplementation. Will monitor for anemia or blood loss. Check lower limb Dopplers. Check sputum culture, MRSA swab. Urine Legionella, bacterial antigen negative. Continue with antibiotics as above. Azithromycin for 3 days. Given hypoxia will try to keep patient as negative as possible. Patient clinically dehydrated for now. Hold off on any IV fluid for diuresis for now. Check echocardiogram. Strict input output charting, daily weights. Status: Acute (4) Acute encephalopathy: Most likely secondary to sepsis from start for his bacteremia along with COVID-19. Cannot rule out polypharmacy given multiple psych medications. It seems patient takes donepezil 5 mg, gabapentin 300 mg, sertraline 25 mg, trazodone for 50 mg, bupropion 150 mg twice daily at home. For now put her back on sertraline 25 mg daily, gabapentin 200 mg twice daily to avoid withdrawal, bupropion 75 mg twice daily. Status: Acute (5) HTN (hypertension) with goal to be determined: Goal of pressure less than 140/91 Hg. Status: Acute (6) Type 2 diabetes mellitus: Insulin sliding scale. HbA1c 7.9. Status: Acute (7) Depression: Status: Acute Plan DNR/DNI. Confirmed with the patient and life partner again. Famotidine for PUD prophylaxis. Full dose Lovenox will help with DVT prophylaxis. Carb consistent diet. Swallow evaluation. 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
[2021-05-24] MEDS: dexamethasone 10 mg/mL INJ 6 MG IVP (17:02)
[2021-05-24] MEDS: benzonatate 100 mg Capsule PO ×2 (17:02→20:19)
[2021-05-24] MEDS: enoxaparin 100 mg/mL Syringe 90 MG SUBCUT ×2 (17:02→22:45)
[2021-05-24] MEDS: ferrous gluconate 324 mg Tablet PO (17:02)
[2021-05-24] MEDS: buPROPion SR (12 HR) 150 mg Tablet PO (17:10)
[2021-05-24] MEDS: sertraline 50 mg Tablet 25 MG PO (17:21)
[2021-05-24] MEDS: gabapentin 100 mg Capsule 200 MG PO ×2 (17:21→17:23)
[2021-05-24] MEDS: morphine 4 mg/mL SDV 1 mL 1 MG IVP (17:24)
[2021-05-24] MEDS: vancomycin 750 MG in sodium chloride 0.9% 250 ML 250 MG IV (18:11)
[2021-05-24] MEDS: remdesivir 100 MG in sodium chloride 0.9% (100 ml) 80 ML IV (20:14)
[2021-05-24] MEDS: azithromycin 500 MG in sodium chloride 0.9% 250 ML 250 MG IV (21:17)
[2021-05-24 21:30] LABS: Glucose Point of Care 259 mg/dL (70-110)
[2021-05-24 21:30] LABS: Glucose Point of Care 168 mg/dL (70-110)
[2021-05-24 21:30] LABS: Glucose Point of Care 227 mg/dL (70-110)
[2021-05-24 22:33] LABS: Amphetamines Screen Urine Negative (Negative); Barbiturates Screen Urine Negative (Negative); Benzodiazepines Screen Urine Negative (Negative); Cocaine Screen Urine Negative (Negative); Opiate Screen Urine Positive (Negative); PCP Screen Urine Negative (Negative); THC Screen Urine Negative (Negative)
[2021-05-25] VITALS (23 sets, daily range): BP systolic 116–137; BP diastolic 74–94; PULSE 60–79; RESP 16–20; TEMP 36.5–36.9; O2SAT 88–96
[2021-05-25] MEDS: ipratropium-albuterol 3 mL Neb INHALATION ×7 (01:14→23:20)
--- NOTE | 2021-05-25 06:00 | XRR_ITS ---
PROCEDURE INFORMATION: Exam: XR Chest Exam date and time: 05/25/2021 6:00 AM Age: 65 years old Clinical indication: Shortness of breath. COVID 19. TECHNIQUE: Imaging protocol: XR of the chest. Views: 1 view. COMPARISON: CR (CHEST, ) 05/23/2021 5:33 PM FINDINGS: Lungs: There are patchy bilateral pulmonary opacities that appear slightly improved on the right. Pleural spaces: No pleural effusion. No pneumothorax. Heart/Mediastinum: The cardiac silhouette is approximately unchanged. No gross evidence of pneumomediastinum. Bones/joints: No gross fracture. Suture anchors are noted in the proximal right humerus. XR/XR chest 1V portable [id number] IMPRESSION: Patchy bilateral pulmonary opacities that appear slightly improved on the right.
[2021-05-25 06:42] LABS: Glucose Point of Care 249 mg/dL (70-110)
[2021-05-25] MEDS: budesonide 0.5 mg/2 mL Neb INHALATION ×2 (08:09→19:51)
[2021-05-25] MEDS: sertraline 50 mg Tablet 25 MG PO (08:59)
[2021-05-25] MEDS: benzonatate 100 mg Capsule PO ×2 (08:59→16:28)
[2021-05-25] MEDS: ferrous gluconate 324 mg Tablet PO ×2 (08:59→16:28)
[2021-05-25] MEDS: atorvastatin 40 mg Tablet PO (08:59)
[2021-05-25] MEDS: aspirin 81 mg EC Tablet PO (09:01)
[2021-05-25] MEDS: ascorbic acid 500 mg Tablet PO ×2 (09:01→16:27)
[2021-05-25] MEDS: cholecalciferol (vitamin D3) 1,000 unit Tablet 1000 UNIT PO (09:01)
[2021-05-25] MEDS: zinc gluconate 50 mg Tablet PO (09:02)
[2021-05-25] MEDS: gabapentin 100 mg Capsule 200 MG PO ×2 (09:11→16:27)
[2021-05-25] MEDS: buPROPion SR (12 HR) 150 mg Tablet PO ×2 (09:12→16:37)
[2021-05-25] MEDS: famotidine 20 mg/2 mL INJ IVP ×2 (09:12→20:56)
[2021-05-25] MEDS: insulin lispro 100 unit/1 mL SUBCUT ×3 (09:13→21:10)
[2021-05-25] MEDS: vancomycin 750 MG in sodium chloride 0.9% 250 ML 250 MG IV ×2 (09:43→17:41)
[2021-05-25 11:42] LABS: Glucose Point of Care 169 mg/dL (70-110)
--- NOTE | 2021-05-25 15:20 | P.PN_ITS ---
Subjective Subjective: Today morning patient is looking a lot more awake. Sitting up in chair. Oxygen supplementation have turned down to 35 L 40%. Saturating 92%. Having complete conversation. States he is feeling better. Overnight no acute events. Has remained hemodynamically stable and afebrile. Vitals/I&O/Wt Last Vital Signs Temp 97.9 F 05/25/21 11:20 Pulse 72 05/25/21 12:15 Resp 18 05/25/21 12:09 BP 116/77 05/25/21 11:20 Pulse Ox 91 05/25/21 12:09 05/25/21 05/25/21 05/25/21 06:59 14:59 22:59 Intake Total 450 / 1750 240 / 240 Output Total 350 / 750 Balance 100 / 1000 240 / 240 Weight last 48 hrs Weight 80.83 kg Weight 86.682 kg Weight 79.832 kg Physical Exam Narrative: General: No acute distress, AO x3, looks older than stated age, poor dentition HEENT: PERRLA, pupils bilaterally equal and reactive Chest: Diffuse rhonchi all over the lung wang, crackles present in right middle zone and left lower zone equal good air entry bilaterally CVS: S1-S2 regular, no murmurs, no tachycardia, no gallops, no rubs Abdomen: Soft, nontender, no organomegaly, bowel sounds present Neuro: No focal deficits, no facial deformity, AO x3, power 5/5 in all limbs Urinary Catheter Management: Aleman: Cath Placed During This Visit: yes Reason for Continuing Indwelling Catheter: Accurate Measurement of Urinary Output in Critically Ill Patients Urinary Catheter Date of Insertion: 05/23/21 Data : 05/24/21 02:01 05/24/21 02:01 Micro: Microbiology 05/23/21 23:19 Urine Culture - Preliminary Urine,Clean Catch Staphylococcus aureus 05/24/21 18:00 MRSA Culture - Final Nose 05/25/21 11:10 Blood Culture - Preliminary Blood SPECIMEN COLLECTED 05/23/21 19:15 Blood Culture - Preliminary Blood Staphylococcus aureus Staphylococcus epidermidis 05/23/21 19:15 Blood Culture - Preliminary Blood Gram positive cocci 05/23/21 23:19 Bacterial Antigens - Final Urine,Clean Catch A&P Assessment and plan (1) Staphylococcus aureus bacteremia with sepsis: Blood cultures from admission positive. 4 out of 4 bottles. Repeat blood cultures to be sent today. MRSA swab negative Keep mean artery pressure of 65. Continue with ceftriaxone and vancomycin. Will de-escalate antibiotics as per culture results and sensitivities. Echocardiogram for now not concerning for endocarditis. If repeat blood cultures come back positive will have to scram back and knee to rule out osteomyelitis or joint infection. Status: Acute (2) Acute respiratory failure with hypoxia: Secondary to COVID-19 pneumonia. Cannot rule out superadded aspiration pneumonia. Status: Acute (3) Pneumonia due to COVID-19 virus: Tested positive on 05/12. Off isolation precaution. Hypoxia secondary to COVID-19 pneumonia: Moderate disease. Oxygen supplementation keeping saturation over 88%. Dexamethasone 6 mg daily. Remdesivir to finish a 5-day course. Vitamin C, zinc. DuoNebs every 4 hour, budesonide twice daily Pulmonary toilet with incentive spirometry flutter valve as able We will monitor inflammatory markers including D-dimer, CRP every 48 hours. We will hold off on Actemra given positive blood cultures. D-dimer elevated. CTA negative for pulmonary embolism. Patient is pretty sedentary as per the at baseline. We will continue for now on full dose anticoagulation given high oxygen supplementation. Will monitor for anemia or blood loss. Check lower limb Dopplers. Check sputum culture, MRSA swa positive Urine Legionella, bacterial antigen negative. Continue with antibiotics as above. Azithromycin for 3 days. Given hypoxia will try to keep patient as negative as possible. Patient clinically dehydrated for now. Echocardiogram results appreciated with EF of 60 to 65% with grade 1 diastolic dysfunction, trace MR, thickened aortic valve with trace pericardial effusion. Strict input output charting, daily weights. Status: Acute (4) Acute encephalopathy: Improving today. Most likely secondary to sepsis from start for his bacteremia along with COVID- 19. Cannot rule out polypharmacy given multiple psych medications. It seems patient takes donepezil 5 mg, gabapentin 300 mg, sertraline 25 mg, trazodone for 50 mg, bupropion 150 mg twice daily at home. For now continue with sertraline 25 mg daily, gabapentin 200 mg twice daily to avoid withdrawal, bupropion 75 mg twice daily. Status: Acute (5) HTN (hypertension) with goal to be determined: Goal of pressure less than 140/90 mmHg. Status: Acute (6) Type 2 diabetes mellitus: Insulin sliding scale. HbA1c 7.9. Status: Acute (7) Depression: Status: Acute Plan DNR/DNI. Confirmed with the patient and life partner again. Famotidine for PUD prophylaxis. Full dose Lovenox will help with DVT prophylaxis. Mechanical soft diet as per swallow evaluation. PT evaluation. 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
[2021-05-25] MEDS: enoxaparin 100 mg/mL Syringe 90 MG SUBCUT ×2 (16:26→23:27)
[2021-05-25] MEDS: dexamethasone 10 mg/mL INJ 6 MG IVP (16:26)
[2021-05-25] MEDS: remdesivir 100 MG in sodium chloride 0.9% (100 ml) 80 ML IV (16:28)
--- NOTE | 2021-05-25 16:42 | PC.RESP ---
Pt taken off heated high flow and placed on 8lpm high flow n/c. Sats 93% hr 78, RR 16.
[2021-05-25 17:05] LABS: Glucose Point of Care 167 mg/dL (70-110)
[2021-05-25 18:39] LABS: Basophils % 0.2 %; Eosinophils # 0.1 10^3/uL (0.0-0.8); Hematocrit 34.8 % (37.0-47.0); Hemoglobin 11.2 g/dL (11.5-15.3); Lymphocytes # 1.3 10^3/uL (0.8-4.8); Lymphocytes % 10.6 %; Mean Corpuscular HGB Conc 32.2 g/dL (30.0-36.0); Mean Corpuscular Hemoglobin 26.9 pg (28.0-34.0); Mean Corpuscular Volume 83.5 fl (81-99); Mean Platelet Volume 10.6 fL (7.4-10.4); Monocytes # 0.6 10^3/uL (0.2-0.9); Monocytes % 5.1 %; Neutrophils # 9.81 10^3/uL (1.8-7.7); Neutrophils % 82.1 %; Nucleated Red Blood Cells % 0 %; Platelet Count 389 10^3/cmm (130-400); Red Blood Count 4.17 10^6/uL (4.1-5.3); Red Cell Distribution Width 14.5 % (12.1-15.1); White Blood Count 11.9 10^3/uL (4.0-10.0)
[2021-05-25 18:53] LABS: D Dimer 2.15 ug/mIFEU (0-0.59)
[2021-05-25 19:26] LABS: Albumin Level 2.4 g/dL (3.5-5.2); Alkaline Phosphatase 78 IU/L (35-105); Blood Urea Nitrogen 26 mg/dL (8-23); C Reactive Protein 64.3 mg/L (0.0-4.9); Calcium 9.8 mg/dL (8.5-10.5); Carbon Dioxide 24 mmol/L (22-29); Chloride 104 mmol/L (98-107); Globulin 4.4 g/dL (1.3-4.6); Glomerular Filtration Rate 84.2 mL/min (90-130); Glucose 143 mg/dL (65-115); Magnesium 1.8 mg/dL (1.7-2.3); Osmolality Calculated 295 mOsm/kg (285-295); Sodium 139 mmol/L (136-145); Total Bilirubin 0.3 mg/dL (0.15-1.2); Total Protein 6.8 g/dL (6.6-8.7)
[2021-05-25 19:34] LABS: Alanine Aminotransferase 20 U/L (0-33); Anion Gap 14.5 (5-19); Aspartate Amino Transferase 29 U/L (0-32); Potassium 3.5 mmol/L (3.5-5.1)
[2021-05-25] MEDS: acetaminophen 325 mg Tablet 650 MG PO (20:59)
[2021-05-25 21:22] LABS: Glucose Point of Care 292 mg/dL (70-110)
[2021-05-25] MEDS: azithromycin 500 MG in sodium chloride 0.9% 250 ML 250 MG IV (22:29)
[2021-05-25] MEDS: cefTRIAXone 1,000 MG in sodium chloride 0.9% (plus) 50 ML 100 MG IV (22:33)
[2021-05-26] VITALS (18 sets, daily range): BP systolic 107–155; BP diastolic 69–87; PULSE 64–87; RESP 16–20; TEMP 36.4–36.7; O2SAT 83–97
[2021-05-26] MEDS: ipratropium-albuterol 3 mL Neb INHALATION ×5 (03:02→20:25)
[2021-05-26 06:18] LABS: Magnesium 1.6 mg/dL (1.7-2.3)
[2021-05-26 06:41] LABS: Vancomycin Trough 8.3 ug/mL (10-15)
--- NOTE | 2021-05-26 09:28 | PC.SOCIAL ---
IMM update IMM updated with patient. Verbalized an understanding. Initialled, dated, timed, and placed in chart.
[2021-05-26] MEDS: sertraline 50 mg Tablet 25 MG PO (09:48)
[2021-05-26] MEDS: zinc gluconate 50 mg Tablet PO (09:48)
[2021-05-26] MEDS: ascorbic acid 500 mg Tablet PO ×2 (09:48→17:24)
[2021-05-26] MEDS: buPROPion SR (12 HR) 150 mg Tablet PO ×2 (09:48→17:26)
[2021-05-26] MEDS: budesonide 0.5 mg/2 mL Neb INHALATION ×2 (09:52→20:25)
[2021-05-26] MEDS: benzonatate 100 mg Capsule PO ×3 (09:56→22:11)
[2021-05-26] MEDS: aspirin 81 mg EC Tablet PO (09:56)
[2021-05-26] MEDS: atorvastatin 40 mg Tablet PO (09:56)
[2021-05-26] MEDS: gabapentin 100 mg Capsule 200 MG PO ×2 (09:56→17:24)
[2021-05-26] MEDS: ferrous gluconate 324 mg Tablet PO ×2 (09:56→17:25)
[2021-05-26] MEDS: famotidine 20 mg/2 mL INJ IVP ×2 (09:57→22:15)
[2021-05-26] MEDS: vancomycin 1,000 MG in sodium chloride 0.9% 250 ML 250 MG IV (09:57)
[2021-05-26 11:16] LABS: Glucose Point of Care 166 mg/dL (70-110)
[2021-05-26] MEDS: insulin lispro 100 unit/1 mL SUBCUT ×3 (12:30→22:11)
[2021-05-26] MEDS: FUROsemide 10 mg/mL SDV 2mL 20 MG IVP (12:44)
[2021-05-26 14:21] LABS: Basophils % 0.1 %; Eosinophils # 0.1 10^3/uL (0.0-0.8); Eosinophils % 1.3 %; Lymphocytes # 2.2 10^3/uL (0.8-4.8); Lymphocytes % 23.7 %; Mean Corpuscular HGB Conc 31.6 g/dL (30.0-36.0); Mean Corpuscular Hemoglobin 27.2 pg (28.0-34.0); Mean Corpuscular Volume 86.2 fl (81-99); Mean Platelet Volume 10.8 fL (7.4-10.4); Monocytes # 0.6 10^3/uL (0.2-0.9); Neutrophils # 6.22 10^3/uL (1.8-7.7); Neutrophils % 67.8 %; Nucleated Red Blood Cells % 0 %; Platelet Count 384 10^3/cmm (130-400); Red Blood Count 4.41 10^6/uL (4.1-5.3); Red Cell Distribution Width 14.5 % (12.1-15.1); White Blood Count 9.2 10^3/uL (4.0-10.0)
[2021-05-26 14:26] LABS: Alanine Aminotransferase 19 U/L (0-33); Albumin Level 2.7 g/dL (3.5-5.2); Alkaline Phosphatase 77 IU/L (35-105); Anion Gap 16.1 (5-19); Aspartate Amino Transferase 20 U/L (0-32); Blood Urea Nitrogen 21 mg/dL (8-23); Calcium 9.1 mg/dL (8.5-10.5); Carbon Dioxide 25 mmol/L (22-29); Chloride 100 mmol/L (98-107); Glomerular Filtration Rate 84.2 mL/min (90-130); Glucose 194 mg/dL (65-115); Osmolality Calculated 294 mOsm/kg (285-295); Potassium 3.1 mmol/L (3.5-5.1); Sodium 138 mmol/L (136-145); Total Bilirubin 0.3 mg/dL (0.15-1.2); Total Protein 6.7 g/dL (6.6-8.7)
--- NOTE | 2021-05-26 14:53 | PM.PN ---
Subjective Subjective: No acute vents overnight. Patient is a lot more awake and alert. Sitting up in chair. Able to have complete conversation. Asking when can she go home. Having her breakfast during examination. Has remained hemodynamically stable and afebrile. Down to 7 L high flow nasal cannula saturating 95%. Vitals/I&O/Wt Last Vital Signs Temp 98.1 F 05/26/21 11:54 Pulse 80 05/26/21 11:58 Resp 18 05/26/21 11:58 BP 124/72 05/26/21 11:54 Pulse Ox 94 05/26/21 11:58 05/25/21 05/26/21 05/26/21 22:59 06:59 14:59 Intake Total 595 / 1445 1000 / 2445 440 / 440 Output Total 350 / 350 750 / 1100 Balance 245 / 1095 250 / 1345 440 / 440 Weight last 48 hrs Weight 82.917 kg Weight 80.83 kg Physical Exam Narrative: General: No acute distress, AO x3, looks older than stated age, poor dentition HEENT: PERRLA, pupils bilaterally equal and reactive Chest: Diffuse rhonchi all over the lung wang, crackles present in right middle zone and left lower zone equal good air entry bilaterally CVS: S1-S2 regular, no murmurs, no tachycardia, no gallops, no rubs Abdomen: Soft, nontender, no organomegaly, bowel sounds present Neuro: No focal deficits, no facial deformity, AO x3, power 5/5 in all limbs Urinary Catheter Management: Aleman: Cath Placed During This Visit: yes Reason for Continuing Indwelling Catheter: Acute Urinary Retention or Obstruction Urinary Catheter Date of Insertion: 05/23/21 Data : 05/26/21 13:52 05/26/21 13:52 Micro: Microbiology 05/25/21 11:10 Blood Culture - Preliminary Blood NEGATIVE TO DATE 05/23/21 23:19 Urine Culture - Final Urine,Clean Catch Methicillin Resis Staph Aureus 05/23/21 19:15 Blood Culture - Preliminary Blood Methicillin Resis Staph Aureus Staphylococcus epidermidis 05/25/21 18:29 Blood Culture - Preliminary Blood SPECIMEN COLLECTED 05/24/21 18:00 MRSA Culture - Final Nose A&P Assessment and plan (1) Staphylococcus aureus bacteremia with sepsis: Blood cultures from admission positive. 4 out of 4 bottles for MRSA Repeat blood cultures from 05/25 so far negative. Keep mean artery pressure of 65. Stop ceftriaxone. Continue vancomycin. Echocardiogram not concerning for endocarditis. If repeat blood cultures also positive will scan back and need to rule out joint infection versus discitis. Status: Acute (2) Acute respiratory failure with hypoxia: Secondary to COVID-19 pneumonia. Cannot rule out superadded aspiration pneumonia. Status: Acute (3) Pneumonia due to COVID-19 virus: Tested positive on 05/12. Off isolation precaution. Hypoxia secondary to COVID-19 pneumonia: Moderate disease. Oxygen supplementation keeping saturation over 88%. Dexamethasone 6 mg daily. Remdesivir to finish a 5-day course. Vitamin C, zinc. DuoNebs every 4 hour, budesonide twice daily Pulmonary toilet with incentive spirometry flutter valve as able We will monitor inflammatory markers including D-dimer, CRP every 48 hours. We will hold off on Actemra given positive blood cultures. D-dimer elevated. CTA negative for pulmonary embolism. As oxygen supplementation have come down dramatically we will stop full dose anticoagulation and switch to Lovenox 40 mg subcu daily. Check sputum culture, MRSA swab positive. Urine Legionella, bacterial antigen negative. Continue with antibiotics as above. Azithromycin for 3 days. Given hypoxia will try to keep patient as negative as possible. Patient clinically dehydrated for now. Echocardiogram results appreciated with EF of 60 to 65% with grade 1 diastolic dysfunction, trace MR, thickened aortic valve with trace pericardial effusion. Strict input output charting, daily weights. Status: Acute (4) Acute encephalopathy: Improving today. Most likely secondary to sepsis from start for his bacteremia along with COVID-19. Cannot rule out polypharmacy given multiple psych medications. It seems patient takes donepezil 5 mg, gabapentin 300 mg, sertraline 25 mg, trazodone for 50 mg, bupropion 150 mg twice daily at home. For now continue with sertraline 25 mg daily, gabapentin 200 mg twice daily to avoid withdrawal, bupropion 75 mg twice daily. Status: Acute (5) HTN (hypertension) with goal to be determined: Goal of pressure less than 140/90 mmHg. Status: Acute (6) Type 2 diabetes mellitus: Insulin sliding scale. HbA1c 7.9. Status: Acute (7) Depression: Status: Acute Plan DNR/DNI. Confirmed with the patient and life partner again. Famotidine for PUD prophylaxis. Full dose Lovenox will help with DVT prophylaxis. Mechanical soft diet as per swallow evaluation. PT evaluation. Attestations Medical Necessity Statement*: Requires further hospitalization for management of MRSA bacteremia, hypoxia in setting of superadded bacterial infection and recent COVID-19. 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
[2021-05-26 16:59] LABS: Glucose Point of Care 207 mg/dL (70-110)
[2021-05-26] MEDS: enoxaparin 40 mg/0.4 mL Syringe SUBCUT (17:24)
[2021-05-26] MEDS: dexamethasone 10 mg/mL INJ 6 MG IVP (17:26)
[2021-05-26] MEDS: remdesivir 100 MG in sodium chloride 0.9% (100 ml) 80 ML IV (17:35)
[2021-05-26 20:34] LABS: Glucose Point of Care 210 mg/dL (70-110)
[2021-05-27] VITALS (14 sets, daily range): BP systolic 98–152; BP diastolic 66–85; PULSE 65–93; RESP 15–20; TEMP 36.4–37.2; O2SAT 88–98
[2021-05-27] MEDS: ipratropium-albuterol 3 mL Neb INHALATION ×6 (00:15→20:29)
--- NOTE | 2021-05-27 01:06 | PC.NURSE ---
Pt's IV went bad when this nurse went to hang her 1915 dose of vanc, this nurse attempted to start a new IV, the patient moved and caused the IV to come out, the patient then stated she did not want to be poked anymore, this nurse contacted Dr. Ahmadi and he asked to really try and get her to allow us to start a new IV, the CRN nurse was able to get an IV and the Van was started at around 2029, this nurse had marked it as not given, but the patient did get the dose.
--- NOTE | 2021-05-27 06:00 | XR_ITS ---
WS: [id number] CHEST XRAY TECHNIQUE: Portable chest. CLINICAL INFORMATION: covid COMPARISON: None. FINDINGS: Heart: Cardiomegaly. Lungs: Patchy bilateral pulmonary opacities appear unchanged compared to May 25, 2021. No progre ssion. No significant pleural fluid. Bones: RIGHT rotator cuff anchor. XR/XR chest 1V portable [id number] IMPRESSION: Patchy bilateral pulmonary infiltrates are stable compared to May 25, 2021 . No progression.
[2021-05-27 06:02] LABS: Basophils % 0.2 %; Eosinophils % 0.6 %; Hematocrit 33.7 % (37.0-47.0); Hemoglobin 10.8 g/dL (11.5-15.3); Lymphocytes # 1.3 10^3/uL (0.8-4.8); Lymphocytes % 20.5 %; Mean Corpuscular Hemoglobin 27.2 pg (28.0-34.0); Mean Corpuscular Volume 84.9 fl (81-99); Mean Platelet Volume 10.6 fL (7.4-10.4); Monocytes # 0.5 10^3/uL (0.2-0.9); Monocytes % 7.3 %; Neutrophils # 4.57 10^3/uL (1.8-7.7); Neutrophils % 70.5 %; Nucleated Red Blood Cells % 0 %; Platelet Count 317 10^3/cmm (130-400); Red Blood Count 3.97 10^6/uL (4.1-5.3); White Blood Count 6.5 10^3/uL (4.0-10.0)
[2021-05-27 06:17] LABS: D Dimer 1.18 ug/mIFEU (0-0.59)
[2021-05-27 06:29] LABS: Alanine Aminotransferase 23 U/L (0-33); Albumin Level 2.5 g/dL (3.5-5.2); Alkaline Phosphatase 87 IU/L (35-105); Anion Gap 14.3 (5-19); Aspartate Amino Transferase 24 U/L (0-32); Blood Urea Nitrogen 22 mg/dL (8-23); C Reactive Protein 25.6 mg/L (0.0-4.9); Calcium 9.4 mg/dL (8.5-10.5); Carbon Dioxide 25 mmol/L (22-29); Chloride 100 mmol/L (98-107); Globulin 4.1 g/dL (1.3-4.6); Glomerular Filtration Rate 100.6 mL/min (90-130); Glucose 268 mg/dL (65-115); Osmolality Calculated 295 mOsm/kg (285-295); Potassium 3.3 mmol/L (3.5-5.1); Sodium 136 mmol/L (136-145); Total Bilirubin 0.3 mg/dL (0.15-1.2); Total Protein 6.6 g/dL (6.6-8.7)
[2021-05-27] MEDS: vancomycin 1,000 MG in sodium chloride 0.9% 250 ML 250 MG IV ×2 (06:29→18:30)
[2021-05-27 06:46] LABS: Glucose Point of Care 246 mg/dL (70-110)
[2021-05-27] MEDS: budesonide 0.5 mg/2 mL Neb INHALATION ×2 (07:55→20:29)
--- NOTE | 2021-05-27 08:00 | PC.RESP ---
RT Shift Note Frequent safety and respiratory rounds continue. Orders completed as indicated. Patient monitored pre and post treatments throughout shift. Patient [Did.] tolerate treatments appropriately. Condition [.DidNotChange]. Patient and/or medical detail representative educated on respiratory treatment and medications. Patient and/or medical detail representative reinforcement needed]. Will continue to monitor patient progress.
[2021-05-27] MEDS: zinc gluconate 50 mg Tablet PO (08:18)
[2021-05-27] MEDS: ferrous gluconate 324 mg Tablet PO ×2 (08:18→17:32)
[2021-05-27] MEDS: benzonatate 100 mg Capsule PO ×3 (08:18→21:56)
[2021-05-27] MEDS: atorvastatin 40 mg Tablet PO (08:18)
[2021-05-27] MEDS: gabapentin 100 mg Capsule 200 MG PO ×2 (08:18→17:32)
[2021-05-27] MEDS: buPROPion SR (12 HR) 150 mg Tablet PO ×2 (08:18→17:32)
[2021-05-27] MEDS: ascorbic acid 500 mg Tablet PO ×2 (08:18→17:32)
[2021-05-27] MEDS: aspirin 81 mg EC Tablet PO (08:18)
[2021-05-27] MEDS: sertraline 50 mg Tablet 25 MG PO (08:21)
[2021-05-27] MEDS: famotidine 20 mg/2 mL INJ IVP ×2 (08:21→21:55)
[2021-05-27] MEDS: insulin lispro 100 unit/1 mL SUBCUT ×3 (08:22→21:56)
[2021-05-27 11:41] LABS: Glucose Point of Care 115 mg/dL (70-110)
--- NOTE | 2021-05-27 14:17 | P.PN_ITS ---
Subjective Subjective: Reports she is doing all right. Denies any chest pain or pressure. States breathing has been comfortable. Not coughing up phlegm. Denies headache, photophobia, no nausea, vomiting, diarrhea, no rash. Denies any other complaints. Vitals/I&O/Wt Last Vital Signs Temp 98.9 F 05/27/21 07:36 Pulse 83 05/27/21 12:00 Resp 16 05/27/21 12:00 BP 98/66 05/27/21 12:00 Pulse Ox 94 05/27/21 12:00 05/26/21 05/27/21 05/27/21 22:59 06:59 14:59 Intake Total 360 / 1050 330 / 330 Output Total 900 / 900 Balance -540 / 150 330 / 330 Weight last 48 hrs Weight 82.917 kg Physical Exam Const: COMMON NORMALS: no acute distress and patient oriented x3 HENMT: COMMON NORMALS: oropharynx normal Neck/C-Spine: COMMON NORMALS: no JVD Resp: COMMON NORMALS: normal respiratory effort and clear to auscultation bilaterally AUSCULTATION: clear to auscultation bilaterally Cardio: COMMON NORMALS: no JVD, regular rhythm, S1 normal heart sound present, S2 normal heart sound present and No murmurs present (Cardio) RHYTHM: regular rhythm HEART SOUNDS: S1 normal heart sound present and S2 normal heart sound present GI: COMMON NORMALS: Normal to inspection, nondistended, normoactive bowel sounds present, Soft to palpation and non-tender PALPATION: Yes Soft to palpation Extremity: COMMON NORMALS: no joint enlargement and no pedal edema Neuro: COMMON NORMALS: patient oriented x3 and moves all extremities Skin: COMMON NORMALS: no rashes or lesions noted GENERAL SKIN EXAM: no rashes or lesions noted Urinary Catheter Management: Aleman: Cath Placed During This Visit: yes Reason for Continuing Indwelling Catheter: Acute Urinary Retention or Obstruction Urinary Catheter Date of Insertion: 05/23/21 Data : 05/27/21 05:44 05/27/21 05:44 Micro: Microbiology 05/25/21 18:29 Blood Culture - Preliminary Blood NEGATIVE TO DATE 05/23/21 19:15 Blood Culture - Final Blood Methicillin Resis Staph Aureus 05/23/21 19:15 Blood Culture - Final Blood Methicillin Resis Staph Aureus Staphylococcus epidermidis 05/25/21 11:10 Blood Culture - Preliminary Blood NEGATIVE TO DATE 05/23/21 23:19 Urine Culture - Final Urine,Clean Catch Methicillin Resis Staph Aureus A&P Assessment and plan (1) Staphylococcus aureus bacteremia with sepsis: Currently again no growth on repeat cultures from 05/25. We will tentatively request for PICC line for tomorrow, if continuing without growth on repeat cultures, will need to complete 2 weeks of antibiotic therapy after discharge. Blood cultures from admission positive. 4 out of 4 bottles for MRSA Continue vancomycin. Echocardiogram not concerning for endocarditis. If repeat blood cultures also positive will scan back and need to rule out joint infection versus discitis. Status: Acute (2) Acute respiratory failure with hypoxia: Secondary to COVID-19 pneumonia. Cannot rule out superadded aspiration pneumonia. Status: Acute (3) Pneumonia due to COVID-19 virus: Completing remdesivir course today. Doing well in terms of oxygenation on 3 L nasal cannula. Decadron until discharge. Tested positive on 05/12. Off isolation precaution. Pulmonary toilet with incentive spirometry flutter valve as able Did not receive Actemra given positive blood cultures. D-dimer elevated. CTA negative for pulmonary embolism. As oxygen supplementation have come down dramatically we will stop full dose anticoagulation and switch to Lovenox 40 mg subcu daily. Check sputum culture, MRSA swab positive. Urine Legionella, bacterial antigen negative. Continue with antibiotics as above. Completed azithromycin for 3 days. Echocardiogram results appreciated with EF of 60 to 65% with grade 1 diastolic dysfunction, trace MR, thickened aortic valve with trace pericardial effusion. Strict input output charting, daily weights. Status: Acute (4) Acute encephalopathy: Improved. She is awake and alert. Suspected related secondary to number of her medicines. Sertraline was decreased to 25 mg daily, gabapentin to 200 mg twice a day, bupropion down to 75 mg twice daily. At home also takes trazodone. Aricept. Possibly also due to infection with sepsis, COVID-19. No meningeal symptoms. 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 Status: Acute (5) HTN (hypertension) with goal to be determined: Goal of pressure less than 140/90 mmHg. Status: Acute (6) Type 2 diabetes mellitus: Insulin sliding scale. HbA1c 7.9. Status: Acute (7) Depression: Status: Acute Attestations Medical Necessity Statement*: Continue admission for management due to MRSA bacteremia, improving encephalopathy, polypharmacy, COVID-19. Disposition planning. 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
[2021-05-27] MEDS: cholecalciferol (vitamin D3) 1,000 unit Tablet 1000 UNIT PO (15:27)
[2021-05-27] MEDS: dexamethasone 10 mg/mL INJ 6 MG IVP (15:27)
[2021-05-27] MEDS: enoxaparin 40 mg/0.4 mL Syringe SUBCUT (15:28)
[2021-05-27 17:18] LABS: Glucose Point of Care 208 mg/dL (70-110)
[2021-05-27] MEDS: remdesivir 100 MG in sodium chloride 0.9% (100 ml) 80 ML IV (17:33)
[2021-05-27 18:54] LABS: Vancomycin Trough 16.1 ug/mL (10-15)
[2021-05-27 20:59] LABS: Glucose Point of Care 288 mg/dL (70-110)
[2021-05-28] VITALS (14 sets, daily range): BP systolic 108–154; BP diastolic 69–87; PULSE 68–84; RESP 15–18; TEMP 36.8–37.2; O2SAT 81–99
[2021-05-28] MEDS: ipratropium-albuterol 3 mL Neb INHALATION ×6 (02:14→23:29)
[2021-05-28 05:20] LABS: Basophils % 0.1 %; Eosinophils # 0.1 10^3/uL (0.0-0.8); Hematocrit 33.2 % (37.0-47.0); Hemoglobin 10.4 g/dL (11.5-15.3); Lymphocytes # 1.8 10^3/uL (0.8-4.8); Lymphocytes % 22.4 %; Mean Corpuscular HGB Conc 31.3 g/dL (30.0-36.0); Mean Corpuscular Hemoglobin 26.3 pg (28.0-34.0); Mean Corpuscular Volume 84.1 fl (81-99); Mean Platelet Volume 10.4 fL (7.4-10.4); Monocytes # 0.5 10^3/uL (0.2-0.9); Monocytes % 6.4 %; Neutrophils # 5.54 10^3/uL (1.8-7.7); Neutrophils % 69.5 %; Nucleated Red Blood Cells % 0 %; Platelet Count 317 10^3/cmm (130-400); Red Blood Count 3.95 10^6/uL (4.1-5.3); Red Cell Distribution Width 14.2 % (12.1-15.1)
[2021-05-28 05:38] LABS: D Dimer 1.12 ug/mIFEU (0-0.59)
[2021-05-28 05:47] LABS: Alanine Aminotransferase 27 U/L (0-33); Albumin Level 2.5 g/dL (3.5-5.2); Alkaline Phosphatase 65 IU/L (35-105); Anion Gap 11.3 (5-19); Aspartate Amino Transferase 27 U/L (0-32); Blood Urea Nitrogen 19 mg/dL (8-23); Calcium 9.1 mg/dL (8.5-10.5); Carbon Dioxide 25 mmol/L (22-29); Chloride 102 mmol/L (98-107); Globulin 3.6 g/dL (1.3-4.6); Glomerular Filtration Rate 124.2 mL/min (90-130); Glucose 193 mg/dL (65-115); Osmolality Calculated 288 mOsm/kg (285-295); Potassium 3.3 mmol/L (3.5-5.1); Sodium 135 mmol/L (136-145); Total Bilirubin 0.2 mg/dL (0.15-1.2); Total Protein 6.1 g/dL (6.6-8.7)
[2021-05-28] MEDS: vancomycin 1,000 MG in sodium chloride 0.9% 250 ML 250 MG IV ×2 (06:15→21:53)
[2021-05-28 06:48] LABS: Glucose Point of Care 161 mg/dL (70-110)
[2021-05-28] MEDS: budesonide 0.5 mg/2 mL Neb INHALATION ×2 (08:35→19:23)
[2021-05-28] MEDS: zinc gluconate 50 mg Tablet PO (09:44)
[2021-05-28] MEDS: ferrous gluconate 324 mg Tablet PO ×2 (09:44→17:15)
[2021-05-28] MEDS: atorvastatin 40 mg Tablet PO (09:45)
[2021-05-28] MEDS: aspirin 81 mg EC Tablet PO (09:45)
[2021-05-28] MEDS: benzonatate 100 mg Capsule PO ×3 (09:45→21:53)
[2021-05-28] MEDS: cholecalciferol (vitamin D3) 1,000 unit Tablet 1000 UNIT PO (09:45)
[2021-05-28] MEDS: buPROPion SR (12 HR) 150 mg Tablet PO ×2 (09:45→17:15)
[2021-05-28] MEDS: ascorbic acid 500 mg Tablet PO ×2 (09:45→17:16)
[2021-05-28] MEDS: insulin lispro 100 unit/1 mL SUBCUT ×3 (09:45→22:33)
[2021-05-28] MEDS: gabapentin 100 mg Capsule 200 MG PO ×2 (09:45→17:15)
[2021-05-28] MEDS: sertraline 50 mg Tablet 25 MG PO (09:46)
[2021-05-28] MEDS: famotidine 20 mg/2 mL INJ IVP ×2 (09:46→21:53)
[2021-05-28 11:12] LABS: Glucose Point of Care 298 mg/dL (70-110)
[2021-05-28] MEDS: enoxaparin 40 mg/0.4 mL Syringe SUBCUT (13:38)
--- NOTE | 2021-05-28 15:31 | PC.NURSE ---
Pt refused toput on Oxygen because pt stated that their nose was sore.
--- NOTE | 2021-05-28 15:33 | PC.SOCIAL ---
IMM Updated Updated pt on IMM. No questions voiced. Provided pt a copy. Initialed, dated, & timed copy in chart.
--- NOTE | 2021-05-28 16:00 | P.PN_ITS ---
Subjective Subjective: States she is having a headache, but it is resolving. Denies any back pain. Denies any nausea vomiting, chest discomfort, abdominal discomfort. Her significant other is visiting at bedside. Vitals/I&O/Wt Last Vital Signs Temp 98.4 F 05/28/21 15:31 Pulse 82 05/28/21 15:43 Resp 18 05/28/21 15:43 BP 108/69 05/28/21 15:31 Pulse Ox 92 05/28/21 15:43 05/28/21 05/28/21 05/28/21 06:59 14:59 22:59 Intake Total 730 / 730 Balance 730 / 730 Physical Exam Narrative: Sitting up in chair. Significant other is visiting. Const: COMMON NORMALS: no acute distress and patient oriented x3 OTHER: Patient has some tardive dyskinesia with repetitive blinking of the right eye. Significant other states this has been going on for some time. HENMT: COMMON NORMALS: oropharynx normal Neck/C-Spine: COMMON NORMALS: no JVD Resp: COMMON NORMALS: normal respiratory effort and clear to auscultation bilaterally AUSCULTATION: clear to auscultation bilaterally Cardio: COMMON NORMALS: no JVD, regular rhythm, S1 normal heart sound present, S2 normal heart sound present and No murmurs present (Cardio) RHYTHM: regular rhythm HEART SOUNDS: S1 normal heart sound present and S2 normal heart sound present GI: COMMON NORMALS: Normal to inspection, nondistended, normoactive bowel sounds present, Soft to palpation and non-tender PALPATION: Yes Soft to palpation Extremity: COMMON NORMALS: no joint enlargement and no pedal edema Neuro: COMMON NORMALS: patient oriented x3 and moves all extremities Skin: COMMON NORMALS: no rashes or lesions noted GENERAL SKIN EXAM: no rashes or lesions noted Urinary Catheter Management: Aleman: Cath Placed During This Visit: yes Reason for Continuing Indwelling Catheter: Acute Urinary Retention or Obstruction Urinary Catheter Date of Insertion: 05/23/21 Data : 05/28/21 04:41 05/28/21 04:41 A&P Assessment and plan (1) Staphylococcus aureus bacteremia with sepsis: Reports some mild headache today. No neck or back pain. Will assess MRI of the brain to assess for possible septic embolization. So far no growth on repeat cultures from 05/25. Requested PICC line. Will need to complete 2 weeks of antibiotic therapy after discharge. Blood cultures from admission positive. 4 out of 4 bottles for MRSA Continue vancomycin. Echocardiogram not concerning for endocarditis. If repeat blood cultures also positive will scan back and need to rule out joint infection versus discitis. Status: Acute (2) Acute respiratory failure with hypoxia: Secondary to COVID-19 pneumonia. Cannot rule out superadded aspiration pneumonia. Status: Acute (3) Pneumonia due to COVID-19 virus: Doing well with 2 L nasal cannula oxygen supplementation. Completed course of remdesivir. Decadron until discharge. Tested positive on 05/12. Off isolation precaution. Pulmonary toilet with incentive spirometry flutter valve as able Did not receive Actemra given positive blood cultures. D-dimer elevated. CTA negative for pulmonary embolism. As oxygen suppl ementation have come down dramatically we will stop full dose anticoagulation and switch to Lovenox 40 mg subcu daily. Check sputum culture, MRSA swab positive. Urine Legionella, bacterial antigen ne gative. Continue with antibiotics as above. Completed azithromycin for 3 days. Echocardiogram results appreciated with EF of 60 to 65% with grade 1 diastolic dysfunction, trace MR, thickened aortic valve with trace pericardial effusion. Strict input output charting, daily weights. Status: Acute (4) Acute encephalopathy: Improved. She is awake and alert. Suspected related secondary to number of her medicines. Sertraline was decreased to 25 mg daily, gabapentin to 200 mg twice a day, bupropion down to 75 mg twice daily. At home also takes trazodone. Aricept. Possibly also due to infection with sepsis, COVID-19. No meningeal symptoms. 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 Status: Acute (5) HTN (hypertension) with goal to be determined: Goal of pressure less than 140/90 mmHg. Status: Acute (6) Type 2 diabetes mellitus: Insulin sliding scale. HbA1c 7.9. Status: Acute (7) Depression: Status: Acute Attestations Medical Necessity Statement*: Continue admission for assessment management of MRSA bacteremia, pneumonia. Coding Level of Care Code Acute Afterschool for [facility] Fw Diagnoses Staphylococcus aureus bacteremia with sepsis A41.01 Acute respiratory failure with hypoxia J96.01 Pneumonia due to COVID-19 virus U07.1; J12.82 Acute encephalopathy G93.40 HTN (hypertension) with goal to be determined I10 Type 2 diabetes mellitus E11.9 Depression F32.A
[2021-05-28] MEDS: dexamethasone 10 mg/mL INJ 6 MG IVP (16:09)
[2021-05-28 16:52] LABS: Glucose Point of Care 129 mg/dL (70-110)
[2021-05-28] MEDS: benztropine 1 mg Tablet PO (17:16)
[2021-05-28 22:30] LABS: Glucose Point of Care 193 mg/dL (70-110)
[2021-05-28 22:30] LABS: Glucose Point of Care 320 mg/dL (70-110)
[2021-05-29] VITALS (11 sets, daily range): BP systolic 106–142; BP diastolic 70–94; PULSE 68–97; RESP 16–18; TEMP 36.6–37.2; O2SAT 89–94
[2021-05-29] MEDS: ipratropium-albuterol 3 mL Neb INHALATION ×4 (03:50→21:14)
[2021-05-29 05:06] LABS: Basophils # 0.1 10^3/uL (0.0-0.1); Basophils % 0.6 %; Eosinophils # 0.2 10^3/uL (0.0-0.8); Eosinophils % 2.7 %; Hematocrit 34.6 % (37.0-47.0); Hemoglobin 10.8 g/dL (11.5-15.3); Lymphocytes # 2.7 10^3/uL (0.8-4.8); Lymphocytes % 33.2 %; Mean Corpuscular HGB Conc 31.2 g/dL (30.0-36.0); Mean Corpuscular Hemoglobin 26.9 pg (28.0-34.0); Mean Corpuscular Volume 86.1 fl (81-99); Mean Platelet Volume 10.4 fL (7.4-10.4); Monocytes # 0.6 10^3/uL (0.2-0.9); Monocytes % 7.1 %; Neutrophils # 4.46 10^3/uL (1.8-7.7); Neutrophils % 55.5 %; Nucleated Red Blood Cells % 0 %; Platelet Count 324 10^3/cmm (130-400); Red Blood Count 4.02 10^6/uL (4.1-5.3); Red Cell Distribution Width 14.4 % (12.1-15.1)
[2021-05-29 05:27] LABS: Alanine Aminotransferase 38 U/L (0-33); Albumin Level 2.4 g/dL (3.5-5.2); Alkaline Phosphatase 82 IU/L (35-105); Anion Gap 13.6 (5-19); Aspartate Amino Transferase 43 U/L (0-32); Blood Urea Nitrogen 17 mg/dL (8-23); Calcium 8.7 mg/dL (8.5-10.5); Carbon Dioxide 25 mmol/L (22-29); Chloride 105 mmol/L (98-107); Globulin 3.3 g/dL (1.3-4.6); Glomerular Filtration Rate 84.2 mL/min (90-130); Glucose 133 mg/dL (65-115); Osmolality Calculated 293 mOsm/kg (285-295); Potassium 3.6 mmol/L (3.5-5.1); Sodium 140 mmol/L (136-145); Total Bilirubin 0.3 mg/dL (0.15-1.2); Total Protein 5.7 g/dL (6.6-8.7)
--- NOTE | 2021-05-29 06:00 | XR_ITS ---
WS: [id number] CHEST XRAY TECHNIQUE: Portable chest. CLINICAL INFORMATION: covid COMPARISON: May 27, 2021 FINDINGS: Heart: Cardiomegaly. Prominent LEFT ventricle. Lungs: Coarse diffuse bilateral pulmonary infiltrates unchanged since May 27, 2021 compatible wi th Covid 19 pneumonia. Bones: RIGHT rotator cuff anchors. XR/XR chest 1V portable [id number] IMPRESSION: 1. Coarse diffuse bilateral pulmonary infiltrates unchanged since May 27, 2021 2. Stable cardiomegaly.
[2021-05-29] MEDS: vancomycin 1,000 MG in sodium chloride 0.9% 250 ML 250 MG IV ×2 (06:47→20:51)
[2021-05-29] MEDS: budesonide 0.5 mg/2 mL Neb INHALATION ×2 (08:02→21:14)
[2021-05-29] MEDS: gabapentin 100 mg Capsule 200 MG PO ×2 (08:20→17:01)
[2021-05-29] MEDS: buPROPion SR (12 HR) 150 mg Tablet PO ×2 (08:20→17:02)
[2021-05-29] MEDS: sertraline 50 mg Tablet 25 MG PO (08:20)
[2021-05-29] MEDS: benztropine 1 mg Tablet PO ×2 (08:20→17:01)
[2021-05-29] MEDS: zinc gluconate 50 mg Tablet PO (08:20)
[2021-05-29] MEDS: ascorbic acid 500 mg Tablet PO ×2 (08:20→17:01)
[2021-05-29] MEDS: cholecalciferol (vitamin D3) 1,000 unit Tablet 1000 UNIT PO (08:23)
[2021-05-29] MEDS: famotidine 20 mg/2 mL INJ IVP (08:23)
[2021-05-29] MEDS: ferrous gluconate 324 mg Tablet PO ×2 (08:23→17:01)
[2021-05-29] MEDS: aspirin 81 mg EC Tablet PO (08:23)
[2021-05-29] MEDS: atorvastatin 40 mg Tablet PO (08:23)
[2021-05-29] MEDS: benzonatate 100 mg Capsule PO ×3 (08:23→20:51)
[2021-05-29] MEDS: insulin lispro 100 unit/1 mL SUBCUT ×3 (11:28→20:51)
[2021-05-29 12:09] LABS: Glucose Point of Care 131 mg/dL (70-110)
[2021-05-29 12:09] LABS: Glucose Point of Care 191 mg/dL (70-110)
[2021-05-29 12:10] LABS: Glucose Point of Care 315 mg/dL (70-110)
[2021-05-29] MEDS: famotidine 20 mg Tablet PO (17:01)
[2021-05-29] MEDS: enoxaparin 40 mg/0.4 mL Syringe SUBCUT (17:01)
[2021-05-29 18:39] LABS: Vancomycin Trough 19.2 ug/mL (10-15)
--- NOTE | 2021-05-29 20:33 | PM.PN ---
Subjective Subjective: Just ambulated with therapy. Denies any pain or discomfort. No chest pain or pressure. No trouble breathing. Vitals/I&O/Wt Last Vital Signs Temp 98.9 F 05/29/21 15:21 Pulse 97 05/29/21 15:21 Resp 18 05/29/21 15:21 BP 142/94 05/29/21 15:21 Pulse Ox 90 05/29/21 15:21 05/29/21 05/29/21 05/29/21 06:59 14:59 22:59 Intake Total 250 / 1220 Balance 250 / 1220 Physical Exam Narrative: Sitting up in chair. Significant other is visiting. Const: COMMON NORMALS: no acute distress and patient oriented x3 OTHER: Patient has some tardive dyskinesia with repetitive blinking of the right eye. Significant other states this has been going on for some time. HENMT: COMMON NORMALS: oropharynx normal Neck/C-Spine: COMMON NORMALS: no JVD Resp: COMMON NORMALS: normal respiratory effort and clear to auscultation bilaterally AUSCULTATION: clear to auscultation bilaterally Cardio: COMMON NORMALS: no JVD, regular rhythm, S1 normal heart sound present, S2 normal heart sound present and No murmurs present (Cardio) RHYTHM: regular rhythm HEART SOUNDS: S1 normal heart sound present and S2 normal heart sound present GI: COMMON NORMALS: Normal to inspection, nondistended, normoactive bowel sounds present, Soft to palpation and non-tender PALPATION: Yes Soft to palpation Extremity: COMMON NORMALS: no joint enlargement and no pedal edema Neuro: COMMON NORMALS: patient oriented x3 and moves all extremities Skin: COMMON NORMALS: no rashes or lesions noted GENERAL SKIN EXAM: no rashes or lesions noted Urinary Catheter Management: Aleman: Cath Placed During This Visit: yes Reason for Continuing Indwelling Catheter: Acute Urinary Retention or Obstruction Urinary Catheter Date of Insertion: 05/23/21 Data : 05/29/21 04:33 05/29/21 04:33 A&P Assessment and plan (1) Staphylococcus aureus bacteremia with sepsis: Reports some mild headache today. No neck or back pain. Will assess MRI of the brain to assess for possible septic embolization. Pending MRI study of brain. So far no growth on repeat cultures from 05/25. Pending placement of PICC line. Will need to complete 2 weeks of antibiotic therapy after discharge. Blood cultures from admission positive. 4 out of 4 bottles for MRSA Continue vancomycin. Echocardiogram not concerning for endocarditis. If repeat blood cultures also positive will scan back and need to rule out joint infection versus discitis. Status: Acute (2) Acute respiratory failure with hypoxia: Secondary to COVID-19 pneumonia. Cannot rule out superadded aspiration pneumonia. Status: Acute (3) Pneumonia due to COVID-19 virus: Doing well with 2 L nasal cannula oxygen supplementation. Completed course of remdesivir. Decadron until discharge. Tested positive on 05/12. Off isolation precaution. Pulmonary toilet with incentive spirometry flutter valve as able Did not receive Actemra given positive blood cultures. D-dimer elevated. CTA negative for pulmonary embolism. As oxygen supplementation have come down dramatically we will stop full dose anticoagulation and switch to Lovenox 40 mg subcu daily. Check sputum culture, MRSA swab positive. Urine Legionella, bacterial antigen negative. Continue with antibiotics as above. Completed azithromycin for 3 days. Echocardiogram results appreciated with EF of 60 to 65% with grade 1 diastolic dysfunction, trace MR, thickened aortic valve with trace pericardial effusion. Strict input output charting, daily weights. Status: Acute (4) Acute encephalopathy: Improved. She is awake and alert. Suspected related secondary to number of her medicines. Sertraline was decreased to 25 mg daily, gabapentin to 200 mg twice a day, bupropion down to 75 mg twice daily. At home also takes trazodone. Aricept. Possibly also due to infection with sepsis, COVID-19. No meningeal symptoms. 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 Status: Acute (5) HTN (hypertension) with goal to be determined: Goal of pressure less than 140/90 mmHg. Status: Acute (6) Type 2 diabetes mellitus: Insulin sliding scale. HbA1c 7.9. Status: Acute (7) Depression: Status: Acute (8) Tardive dyskinesia: Appears may have tardive dyskinesia with repetitive stereotyped movements with closing her right eye. Her significant other reports she has had this for some time. Wonder if could be related to metoclopramide she is taking at home. Started benztropine. Status: Acute Attestations Medical Necessity Statement*: Awaiting additional assessment in the setting of MRSA bacteremia, pending MRI to rule out septic emboli to the brain. Pending PICC line placement, arrangement for continued IV antibiotic infusions after discharge to complete antibiotic course. Coding Level of Care Code Acute Manager Ecommerce for g Fwd Diagnoses Staphylococcus aureus bacteremia with sepsis A41.01 Acute respiratory failure with hypoxia J96.01 Pneumonia due to COVID-19 virus U07.1; J12.82 Acute encephalopathy G93.40 HTN (hypertension) with goal to be determined I10 Type 2 diabetes mellitus E11.9 Depression F32.A Tardive dyskinesia G24.01
[2021-05-29 21:43] LABS: Glucose Point of Care 155 mg/dL (70-110)
[2021-05-29 21:43] LABS: Glucose Point of Care 174 mg/dL (70-110)
[2021-05-30] VITALS (18 sets, daily range): BP systolic 107–147; BP diastolic 68–90; PULSE 80–103; RESP 15–18; TEMP 36.6–36.8; O2SAT 89–96
[2021-05-30] MEDS: ipratropium-albuterol 3 mL Neb INHALATION ×6 (01:04→23:08)
[2021-05-30 05:39] LABS: Basophils # 0.1 10^3/uL (0.0-0.1); Basophils % 0.6 %; Eosinophils # 0.2 10^3/uL (0.0-0.8); Eosinophils % 2.6 %; Hematocrit 35.1 % (37.0-47.0); Hemoglobin 11.3 g/dL (11.5-15.3); Lymphocytes # 2.5 10^3/uL (0.8-4.8); Lymphocytes % 28.5 %; Mean Corpuscular HGB Conc 32.2 g/dL (30.0-36.0); Mean Corpuscular Hemoglobin 27.3 pg (28.0-34.0); Mean Corpuscular Volume 84.8 fl (81-99); Mean Platelet Volume 10.8 fL (7.4-10.4); Monocytes # 0.6 10^3/uL (0.2-0.9); Monocytes % 7.1 %; Neutrophils # 5.28 10^3/uL (1.8-7.7); Neutrophils % 60.3 %; Nucleated Red Blood Cells % 0 %; Platelet Count 346 10^3/cmm (130-400); Red Blood Count 4.14 10^6/uL (4.1-5.3); Red Cell Distribution Width 14.7 % (12.1-15.1); White Blood Count 8.8 10^3/uL (4.0-10.0)
[2021-05-30 05:41] LABS: Alanine Aminotransferase 35 U/L (0-33); Albumin Level 2.8 g/dL (3.5-5.2); Alkaline Phosphatase 72 IU/L (35-105); Blood Urea Nitrogen 16 mg/dL (8-23); Calcium 9.6 mg/dL (8.5-10.5); Carbon Dioxide 24 mmol/L (22-29); Chloride 102 mmol/L (98-107); Globulin 2.7 g/dL (1.3-4.6); Glomerular Filtration Rate 100.6 mL/min (90-130); Glucose 106 mg/dL (65-115); Osmolality Calculated 282 mOsm/kg (285-295); Sodium 135 mmol/L (136-145); Total Bilirubin 0.4 mg/dL (0.15-1.2); Total Protein 5.5 g/dL (6.6-8.7)
[2021-05-30 05:50] LABS: Anion Gap 13.2 (5-19); Aspartate Amino Transferase 33 U/L (0-32); Potassium 4.2 mmol/L (3.5-5.1)
[2021-05-30 06:49] LABS: Glucose Point of Care 113 mg/dL (70-110)
[2021-05-30] MEDS: vancomycin 1,000 MG in sodium chloride 0.9% 250 ML 250 MG IV ×2 (06:52→18:17)
[2021-05-30] MEDS: gabapentin 100 mg Capsule 200 MG PO ×2 (08:16→17:37)
[2021-05-30] MEDS: zinc gluconate 50 mg Tablet PO (08:16)
[2021-05-30] MEDS: aspirin 81 mg EC Tablet PO (08:16)
[2021-05-30] MEDS: buPROPion SR (12 HR) 150 mg Tablet PO ×2 (08:16→17:37)
[2021-05-30] MEDS: atorvastatin 40 mg Tablet PO (08:16)
[2021-05-30] MEDS: cholecalciferol (vitamin D3) 1,000 unit Tablet 1000 UNIT PO (08:16)
[2021-05-30] MEDS: ascorbic acid 500 mg Tablet PO ×2 (08:16→17:37)
[2021-05-30] MEDS: benztropine 1 mg Tablet PO ×2 (08:17→17:37)
[2021-05-30] MEDS: benzonatate 100 mg Capsule PO ×3 (08:17→21:17)
[2021-05-30] MEDS: famotidine 20 mg Tablet PO ×2 (08:17→17:37)
[2021-05-30] MEDS: ferrous gluconate 324 mg Tablet PO ×2 (08:17→17:37)
[2021-05-30] MEDS: sertraline 50 mg Tablet 25 MG PO (08:17)
[2021-05-30] MEDS: budesonide 0.5 mg/2 mL Neb INHALATION ×2 (08:54→19:34)
[2021-05-30] MEDS: enoxaparin 40 mg/0.4 mL Syringe SUBCUT (11:35)
[2021-05-30 11:45] LABS: Glucose Point of Care 153 mg/dL (70-110)
[2021-05-30 11:45] LABS: Glucose Point of Care 221 mg/dL (70-110)
--- NOTE | 2021-05-30 12:35 | CT_ITS ---
WS: [id number] CT HEAD TECHNIQUE: Noncontrast and contrast-enhanced CT of the head. CLINICAL INFORMATION: cannot undergo MRI, assess for any signs of septic embolizat COMPARISON: CT January 29, 2020 DLP: 2037.[address] scans at [facility] use at least one of these dose optimization techniques: automated e xposure control; mA and/or kV adjustment per patient size (includes targeted exams where dose is matc hed to clinical indication); or iterative reconstruction. FINDINGS: No evidence of intracranial hemorrhage or mass effect. Ventricular system and basal cisterns are hernández nt. Mild small vessel changes. Mild parenchymal volume loss. Intracranial vascular calcification. Chr onic infarcts in the periventricular white matter and burdick radiata. No extra-axial fluid collections. No abnormal intracranial enhancement. Fluid in the paranasal sinuse s with inspissated secretions compatible with sinusitis. Mastoid air cells are well aerated. CT/CT head wo/w con [id number] IMPRESSION: Images at the skull base are degraded due to beam hardening artifac t. 1. No evidence of intracranial hemorrhage or mass effect. 2. Mild small vessel changes with mild parenchymal volume loss. 3. Chronic lacunar infarcts in the periventricular white matter and burdick rad iata similar to previous. 4. No abnormal intracranial enhancement. No enhancing intracranial lesions. 5. Fluid within the paranasal sinuses compatible with sinusitis.
[2021-05-30] MEDS: insulin lispro 100 unit/1 mL SUBCUT ×3 (12:48→21:18)
[2021-05-30] MEDS: dexamethasone 10 mg/mL INJ 6 MG IVP (15:53)
[2021-05-30 17:49] LABS: Glucose Point of Care 170 mg/dL (70-110)
--- NOTE | 2021-05-30 19:44 | PC.NURSE ---
i reported high pulse 103 to nurse
--- NOTE | 2021-05-30 20:24 | PM.PN ---
Subjective Subjective: Reports she is doing well. Denies headache, neck or back pain, nausea vomiting, chest pain or pressure, abdominal discomfort. States that she has severe claustrophobia and declines to do the MRI. Discussed with her risks of IV contrast, as well as lower ability of CT scan to detect possible septic embolic foci, she still would like to proceed. Does not want to try MRI. Vitals/I&O/Wt Last Vital Signs Temp 98.2 F 05/30/21 19:44 Pulse 95 05/30/21 19:47 Resp 17 05/30/21 19:44 BP 147/90 05/30/21 19:44 Pulse Ox 90 05/30/21 19:44 05/30/21 05/30/21 05/30/21 06:59 14:59 22:59 Intake Total 490 / 490 240 / 730 Balance 490 / 490 240 / 730 Physical Exam Narrative: Sitting up in chair. Significant other is visiting. Const: COMMON NORMALS: no acute distress and patient oriented x3 OTHER: Patient has some tardive dyskinesia with repetitive blinking of the right eye. Significant other states this has been going on for some time. HENMT: COMMON NORMALS: oropharynx normal Neck/C-Spine: COMMON NORMALS: no JVD Resp: COMMON NORMALS: normal respiratory effort and clear to auscultation bilaterally AUSCULTATION: clear to auscultation bilaterally Cardio: COMMON NORMALS: no JVD, regular rhythm, S1 normal heart sound present, S2 normal heart sound present and No murmurs present (Cardio) RHYTHM: regular rhythm HEART SOUNDS: S1 normal heart sound present and S2 normal heart sound present GI: COMMON NORMALS: Normal to inspection, nondistended, normoactive bowel sounds present, Soft to palpation and non-tender PALPATION: Yes Soft to palpation Extremity: COMMON NORMALS: no joint enlargement and no pedal edema Neuro: COMMON NORMALS: patient oriented x3 and moves all extremities Skin: COMMON NORMALS: no rashes or lesions noted GENERAL SKIN EXAM: no rashes or lesions noted Urinary Catheter Management: Aleman: Cath Placed During This Visit: yes Reason for Continuing Indwelling Catheter: Acute Urinary Retention or Obstruction Urinary Catheter Date of Insertion: 05/23/21 Data : 05/30/21 04:46 05/30/21 04:46 Micro: Microbiology 05/25/21 18:29 Blood Culture - Final Blood NO GROWTH AFTER 5 DAYS 05/25/21 11:10 Blood Culture - Final Blood NO GROWTH AFTER 5 DAYS A&P Assessment and plan (1) Staphylococcus aureus bacteremia with sepsis: Due to severe claustrophobia does not want to try MRI. Study canceled. After discussion of risks preferred to proceed with contrast CT of the head. Pending PICC line placement for completion of IV antibiotic therapy. So far no growth on repeat cultures from 05/25. Blood cultures from admission positive. 4 out of 4 bottles for MRSA Continue vancomycin. Echocardiogram not concerning for endocarditis. If repeat blood cultures also positive will scan back and need to rule out joint infection versus discitis. Status: Acute (2) Acute respiratory failure with hypoxia: Secondary to COVID-19 pneumonia. Cannot rule out superadded aspiration pneumonia. Status: Acute (3) Pneumonia due to COVID-19 virus: Doing well with 2 L nasal cannula oxygen supplementation. Completed course of remdesivir. Decadron until discharge. Tested positive on 05/12. Off isolation precaution. Pulmonary toilet with incentive spirometry flutter valve as able Did not receive Actemra given positive blood cultures. D-dimer elevated. CTA negative for pulmonary embolism. As oxygen supplementation have come down dramatically we will stop full dose anticoagulation and switch to Lovenox 40 mg subcu daily. Check sputum culture, MRSA swab positive. Urine Legionella, bacterial antigen negative. Continue with antibiotics as above. Completed azithromycin for 3 days. Echocardiogram results appreciated with EF of 60 to 65% with grade 1 diastolic dysfunction, trace MR, thickened aortic valve with trace pericardial effusion. Strict input output charting, daily weights. Status: Acute (4) Acute encephalopathy: Improved. She is awake and alert. Suspected related secondary to number of her medicines. Sertraline was decreased to 25 mg daily, gabapentin to 200 mg twice a day, bupropion down to 75 mg twice daily. At home also takes trazodone. Aricept. Possibly also due to infection with sepsis, COVID-19. No meningeal symptoms. 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 Status: Acute (5) HTN (hypertension) with goal to be determined: Goal of pressure less than 140/90 mmHg. Status: Acute (6) Type 2 diabetes mellitus: Insulin sliding scale. HbA1c 7.9. Status: Acute (7) Depression: Status: Acute (8) Tardive dyskinesia: Appears may have tardive dyskinesia with repetitive stereotyped movements with closing her right eye. Her significant other reports she has had this for some time. Wonder if could be related to metoclopramide she is taking at home. Started benztropine. Status: Acute Attestations Medical Necessity Statement*: Hospitalization continued for assessment of metastatic foci disease with MRSA bacteremia, preparations for completion of IV antibiotic therapy. 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
[2021-05-30 21:09] LABS: Glucose Point of Care 321 mg/dL (70-110)
[2021-05-31] VITALS (14 sets, daily range): BP systolic 107–144; BP diastolic 66–88; PULSE 89–100; RESP 17–18; TEMP 36.7–36.8; O2SAT 88–95
[2021-05-31] MEDS: ipratropium-albuterol 3 mL Neb INHALATION ×4 (03:03→15:09)
[2021-05-31 06:46] LABS: Glucose Point of Care 200 mg/dL (70-110)
[2021-05-31] MEDS: vancomycin 1,000 MG in sodium chloride 0.9% 250 ML 250 MG IV (06:52)
[2021-05-31] MEDS: budesonide 0.5 mg/2 mL Neb INHALATION (08:19)
--- NOTE | 2021-05-31 10:38 | SUR.PREOP ---
TIME OUT FOR PICC LINE INSERTION
--- NOTE | 2021-05-31 10:39 | SUR.PHASEI ---
PICC NOTE PICC line attempted to the right median cubital x3 location distal, mid and upper arm. Needle access obtained x 3 but was unable to advance the wire through the needle with each attempt. The patient apprehensive at the beginning of the insert and became more so after each attempt. Tolerated fair, but at this point does not want to proceed with any more attempts. Dr Castillo made aware. Site cleaned and dressed per usual protocol. Returned to [facility] by wheelchair. Report to floor RN. Procedure aborted.
[2021-05-31] MEDS: aspirin 81 mg EC Tablet PO (10:54)
[2021-05-31] MEDS: ferrous gluconate 324 mg Tablet PO (10:54)
[2021-05-31] MEDS: ascorbic acid 500 mg Tablet PO (10:54)
[2021-05-31] MEDS: buPROPion SR (12 HR) 150 mg Tablet PO (10:55)
[2021-05-31] MEDS: atorvastatin 40 mg Tablet PO (10:55)
[2021-05-31] MEDS: benztropine 1 mg Tablet PO (10:55)
[2021-05-31] MEDS: benzonatate 100 mg Capsule PO ×2 (10:55→15:57)
[2021-05-31] MEDS: gabapentin 100 mg Capsule 200 MG PO (10:56)
[2021-05-31] MEDS: cholecalciferol (vitamin D3) 1,000 unit Tablet 1000 UNIT PO (10:56)
[2021-05-31] MEDS: famotidine 20 mg Tablet PO (10:56)
[2021-05-31] MEDS: zinc gluconate 50 mg Tablet PO (10:57)
[2021-05-31 11:24] LABS: Glucose Point of Care 150 mg/dL (70-110)
[2021-05-31] MEDS: sertraline 50 mg Tablet 25 MG PO (12:25)
[2021-05-31] MEDS: enoxaparin 40 mg/0.4 mL Syringe SUBCUT (12:27)
[2021-05-31] MEDS: insulin lispro 100 unit/1 mL SUBCUT (12:27)
[2021-05-31] MEDS: dexamethasone 10 mg/mL INJ 6 MG IVP (15:58)
[2021-05-31 17:31] LABS: Glucose Point of Care 212 mg/dL (70-110)
--- NOTE | 2021-05-31 18:32 | P.DS_ITS ---
Discharge Providers Date of Admission: 05/23/21 21:16 Date of Discharge: May 31, 2021 Attending Provider at Admission: Fernando Benitez MD Attending Provider at Discharge: Nirmal Castillo Primary Care Provider: Cooper Villa Diagnoses at Discharge Discharge Diagnosis (1) Staphylococcus aureus bacteremia with sepsis: Status: Acute (2) Acute respiratory failure with hypoxia: Status: Acute (3) Pneumonia due to COVID-19 virus: Status: Acute (4) Acute encephalopathy: Status: Acute (5) HTN (hypertension) with goal to be determined: Status: Acute (6) Type 2 diabetes mellitus: Status: Acute (7) Depression: Status: Acute (8) Tardive dyskinesia: Status: Acute Reason for Visit Reason for Visit: SOB, BODY ACHE Hospital Course Hospital Course 65-year-old lady originally positive for COVID-19 on 05/12 was admitted with altered mental status, with hypoxia, coming down from 50% heated high flow within 36 hours to nasal cannula. Likely with superimposed bacterial infection with metabolic encephalopathy, as well as possible toxic encephalopathy with a number of medications she takes at home that could contribute. These were pared down during the hospitalization with decrease in dose of Wellbutrin while in the hospital, gabapentin, with donepezil withheld. Was found to have MRSA bacteremia, MRSA also growing in urine culture. Initially with concern for aspiration, possible aspiration pneumonia. CTA chest on presentation with bilateral groundglass opacities, mild to moderate mediastinal adenopathy with mild bilateral hilar adenopathy most consistent with reactive adenopathy. Severe central spinal stenosis at T11-T12 secondary to ossification of ligamentum flavum and posterior lesion to the ligament. No PE or aortic dissection. Echocardiogram showed ejection 60-65%, grade 1 diastolic function. Trace MR, thickened aortic valve with trace pericardial effusion. Was seen by speech therapy. Eventually mental status significantly improved. She has been since doing well on mechanical soft consistency diet. Completed course of remdesivir, Decadron for COVID-19. Continued on vancomycin with blood culture showing rapid clearing, with initial cultures positive on 05/23, subsequent cultures negative on repeat on 05/25. Mild headache during hospitalization investigated with initially ordered MRI, but she declined to attempt the test due to severe claustrophobia, assessed with contrast head CT which showed some chronic lacunar infarcts in periventricular white matter and burdick radiata similar to prior, no abnormal intracranial enhancement no enhancing intracranial lesions. Fluid within paranasal sinuses compatible with sinusitis. Arrangements were initially being made for completion of antibiotic therapy with 2 weeks of IV vancomycin, however, PICC line could not be obtained after several attempts. On discussion of options with her she preferred to switch to oral antibiotic therapy with linezolid, understanding the risks including of ser otonin syndrome, peripheral neuropathy, myelosuppression, and others. Knows to seek medical attention immediately in case of concerning symptoms. Knows to follow-up with primary provider for reassessment of condition and blood counts. Consider surveillance blood culture 1 month after completion of antibiotics to confirm clearing. In case of recurrence of bacteremia consider additional investigation, referral to infectious disease. With noted repetitive movements of the right eye which she was reported to have had for a while possible tardive dyskinesia. Reglan is discontinued. Physical Exam Narrative: Sitting up in chair. Significant other is visiting. Const: COMMON NORMALS: no acute distress and patient oriented x3 OTHER: Patient has some tardive dyskinesia with repetitive blinking of the right eye. Significant other states this has been going on for some time. HENMT: COMMON NORMALS: oropharynx normal Neck/C-Spine: COMMON NORMALS: no JVD Resp: COMMON NORMALS: normal respiratory effort and clear to auscultation bilaterally AUSCULTATION: clear to auscultation bilaterally Cardio: COMMON NORMALS: no JVD, regular rhythm, S1 normal heart sound present, S2 normal heart sound present and No murmurs present (Cardio) RHYTHM: regular rhythm HEART SOUNDS: S1 normal heart sound present and S2 normal heart sound present GI: COMMON NORMALS: Normal to inspection, nondistended, normoactive bowel sounds present, Soft to palpation and non-tender PALPATION: Yes Soft to palpation Extremity: COMMON NORMALS: no joint enlargement and no pedal edema Neuro: COMMON NORMALS: patient oriented x3 and moves all extremities Skin: COMMON NORMALS: no rashes or lesions noted GENERAL SKIN EXAM: no rashes or lesions noted Urinary Catheter Management: Aleman: Cath Placed During This Visit: yes Reason for Continuing Indwelling Catheter: Acute Urinary Retention or Obstruction Urinary Catheter Date of Insertion: 05/23/21 Discharge Data Studies Completed and Pending Completed Studies During Hospitalization Category Date Time Status CT angio chest PE protcl [id number] Stat Cat Scan 05/23/21 19:[address] head wo/w con [id number] Routine Cat Scan 05/30/21 12:35 Completed XR chest 1V portable [id number] Q48H Exams 05/25/21 06:00 Completed XR chest 1V portable [id number] Q48H Exams 05/27/21 06:00 Completed XR chest 1V portable [id number] Q48H Exams 05/29/21 06:00 Completed XR chest 1V portable [id number] Stat Exams 05/23/21 16:11 [place] [id number] Routine Ultrasound 05/24/21 11:15 Completed CV. echo complete* [id number] Routine Ultrasound 05/24/21 11:16 Completed Pending at discharge Category Date Time Status Sputum Culture and Gram Stain Stat Lab 05/23/21 16:11 Uncollected Radiology Impressions Chest CTA 05/23/21 19:55 IMPRESSION: 1. Bilateral geographic ground-glass opacities with consolidation and air bronchograms consistent with moderate bilateral COVID-19 pneumonia versus other pneumonia. 2. [id number]-[id number] mediastinal adenopathy with mild bilateral hilar adenopathy most consistent with reactive adenopathy. 3. 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 Axial series 2, image 393. 4. No pulmonary embolus or aortic dissection. Chest X-Ray 05/29/21 06:00 IMPRESSION: 1. Coarse diffuse bilateral pulmonary infiltrates unchanged since May 27, 2021 2. Stable cardiomegaly. Head CT 05/30/21 12:35 IMPRESSION: Images at the skull base are degraded due to beam hardening artifact. 1. No evidence of intracranial hemorrhage or mass effect. 2. Mild small vessel changes with mild parenchymal volume loss. 3. Chronic lacunar infarcts in the periventricular white matter and burdick radiata similar to previous. 4. No abnormal intracranial enhancement. No enhancing intracranial lesions. 5. Fluid within the paranasal sinuses compatible with sinusitis. Laboratory Results WBC 8.8 10^3/uL (4.0-10.0) 05/30/21 04:46 Corrected WBC Cancelled 05/23/21 19:15 RBC 4.14 10^6/uL (4.1-5.3) 05/30/21 04:46 Hgb 11.3 g/dL (11.5-15.3) L 05/30/21 04:46 Hct 35.1 % (37.0-47.0) L 05/30/21 04:46 MCV 84.8 fl (81-99) 05/30/21 04:46 MCH 27.3 pg (28.0-34.0) L 05/30/21 04:46 MCHC 32.2 g/dL (30.0-36.0) 05/30/21 04:46 RDW 14.7 % (12.1-15.1) 05/30/21 04:46 Plt Count 346 10^3/cmm (130-400) 05/30/21 04:46 MPV 10.8 fL (7.4-10.4) H 05/30/21 04:46 Gran % Cancelled 05/23/21 19:15 Neut % (Auto) 60.3 % 05/30/21 04:46 Lymph % (Auto) 28.5 % 05/30/21 04:46 [place] % (Auto) 7.1 % 05/30/21 04:46 Eos % (Auto) 2.6 % 05/30/21 04:46 Baso % (Auto) 0.6 % 05/30/21 04:46 Neut # (Auto) 5.28 10^3/uL (1.8-7.7) 05/30/21 04:46 Lymph # (Auto) 2.5 10^3/uL (0.8-4.8) 05/30/21 04:46 [place] # (Auto) 0.6 10^3/uL (0.2-0.9) 05/30/21 04:46 Eos # (Auto) 0.2 10^3/uL (0.0-0.8) 05/30/21 04:46 Baso # (Auto) 0.1 10^3/uL (0.0-0.1) 05/30/21 04:46 Absolute Gran (auto) Cancelled 05/23/21 19:15 Nucleated RBC % (auto) 0 % 05/30/21 04:46 Nucleated RBCs # 0.0 /100WBC 05/30/21 04:46 D-Dimer 1.12 ug/mIFEU (0-0.59) H 05/28/21 04:41 Specimen Type Arterial 05/23/21 16:53 Sample Site Brachial, left 05/23/21 16:53 ABG pH 7.49 (7.35-7.45) H 05/23/21 16:53 ABG pCO2 30.1 mmHg (35-45) L 05/23/21 16:53 ABG pO2 52.4 mmHg (80.0-100.0) L 05/23/21 16:53 ABG HCO3 22.7 mmol/L (22-26) 05/23/21 16:53 ABG O2 Saturation 86.1 05/23/21 16:53 ABG Base Excess 0.2 mmol/L (-2.0-2.0) 05/23/21 16:53 [place]an Test N/a 05/23/21 16:53 A-a O2 Gradient 7.7 mmHg (5-10) 05/23/21 16:53 Hematocrit 41.9 % (37-47) 05/23/21 16:53 Hgb O2 Saturation 85.2 % (95-100) L 05/23/21 16:53 Carboxyhemoglobin 0.3 %THgb (0.4-20.1) L 05/23/21 16:53 Methemoglobin 0.8 % (0.4-1.5) 05/23/21 16:53 Total Hemoglobin 13.7 g/dL (12-16) 05/23/21 16:53 Sodium 141.0 mmol/L (131-143) 05/23/21 16:53 Potassium 3.2 mmol/L (3.5-5.0) L 05/23/21 16:53 Glucose 162.0 mg/dL (70-115) H 05/23/21 16:53 Ionized Calcium 1.2 mmol/L (1.1-1.4) 05/23/21 16:53 O2 Delivery Device Nc 05/23/21 16:53 O2 Liters/Min 7.0 % 05/23/21 16:53 Renal Dialysis Rn ID Amh 05/23/21 16:53 Sodium 135 mmol/L (136-145) L 05/30/21 04:46 Potassium 4.2 mmol/L (3.5-5.1) 05/30/21 04:46 Chloride 102 mmol/L (98-107) 05/30/21 04:46 Carbon Dioxide 24 mmol/L (22-29) 05/30/21 04:46 Anion Gap 13.2 (5-19) 05/30/21 04:46 BUN 16 mg/dL (8-23) 05/30/21 04:46 Creatinine 0.6 mg/dL (0.5-0.9) 05/30/21 04:46 GFR Calculation 100.6 mL/min (90-130) 05/30/21 04:46 Glucose 106 mg/dL (65-115) 05/30/21 04:46 POC Glucose 212 mg/dL (70-110) H 05/31/21 17:17 Estimat Average Glucose 180 05/23/21 22:07 Hemoglobin A1c 7.9 % (4.0-6.0) H 05/23/21 22:07 Calculated Osmolality 282 mOsm/kg (285-295) L 05/30/21 04:46 Lactic Acid 1.9 mmol/L (0.5-2.2) 05/23/21 19:15 Calcium 9.6 mg/dL (8.5-10.5) 05/30/21 04:46 Phosphorus 3.0 mg/dL (2.5-4.5) 05/26/21 05:55 Magnesium 1.6 mg/dL (1.7-2.3) L 05/26/21 05:55 Iron 22 ug/dL (37-145) L 05/24/21 02:01 TIBC 130 mcg/dl 05/24/21 02:01 % Saturation 16.9 % (20-50) L 05/24/21 02:01 Unsat Iron Binding 108 ug/dL (112-347) L 05/24/21 02:01 Total Bilirubin 0.4 mg/dL (0.15-1.2) 05/30/21 04:46 AST 33 U/L (0-32) H 05/30/21 04:46 ALT 35 U/L (0-33) H 05/30/21 04:46 Alkaline Phosphatase 72 IU/L (35-105) 05/30/21 04:46 Creatine Kinase 33 U/L (26-192) 05/23/21 22:07 Troponin T Baseline 10 ng/L (0-10) 05/23/21 19:15 Troponin T 120 Minute 10.15 ng/L (0-10) H 05/23/21 22:07 Delta Troponin T 0.15 ABS# (0-10) 05/23/21 22:07 Troponin T Hi Sens 6Hr 8.60 ng/L (0-10) 05/24/21 02:01 Troponin T Hi Sens 6Hr Delta -1.40 ng/L (0-12) L 05/24/21 02:01 C-Reactive Protein 25.6 mg/L (0.0-4.9) H 05/27/21 05:44 NT-Pro-B Natriuret Pep 430 pg/mL (0-125) H 05/23/21 22:07 Total Protein 5.5 g/dL (6.6-8.7) L 05/30/21 04:46 Albumin 2.8 g/dL (3.5-5.2) L 05/30/21 04:46 Globulin 2.7 g/dL (1.3-4.6) 05/30/21 04:46 Procalcitonin 0.13 ng/mL (0-0.5) 05/24/21 02:01 TSH 0.34 uIU/mL (0.27-4.20) 05/23/21 22:07 Urine Color Yellow (Yellow) 05/23/21 23:19 Urine Appearance Clear (CLEAR) 05/23/21 23:19 Urine pH 5 (5-7) 05/23/21 23:19 Ur Specific [place] 1.025 (1.005-1.030) 05/23/21 23:19 Urine Protein 1+ (Negative) H 05/23/21 23:19 Urine Glucose (UA) Norm (Normal) 05/23/21 23:19 Urine Ketones 2+ (Negative) H 05/23/21 23:19 Urine Blood 3+ (Negative) H 05/23/21 23:19 Urine Nitrate Negative (Negative) 05/23/21 23:19 Urine Bilirubin 1+ (Negative) H 05/23/21 23:19 Urine Urobilinogen 1 mg/dL (Negative) H 05/23/21 23:19 Ur Leukocyte Esterase 1+ (Negative) H 05/23/21 23:19 Urine RBC 10-15 /hpf (0-2) H 05/23/21 23:19 Urine WBC >100 /hpf (0-5) H 05/23/21 23:19 Ur Squamous Epith Cells 0-4 /hpf (0-5) H 05/23/21 23:19 Amorphous Sediment Not Reportable 05/23/21 23:19 Urine Bacteria Trace /hpf (NONE) 05/23/21 23:19 Vancomycin Trough 19.2 ug/mL (10-15) H 05/29/21 18:04 Urine Opiates Screen Positive ng/mL (Negative) H 05/23/21 23:19 Ur Barbiturates Screen Negative ng/mL (Negative) 05/23/21 23:19 Ur Phencyclidine Scrn Negative ng/mL (Negative) 05/23/21 23:19 Ur Amphetamines Screen Negative ng/mL (Negative) 05/23/21 23:19 U Benzodiazepines Scrn Negative ng/mL (Negative) 05/23/21 23:19 Urine Cocaine Screen Negative ng/mL (Negative) 05/23/21 23:19 U Marijuana (THC) Screen Negative ng/mL (Negative) 05/23/21 23:19 Coronavirus 229E (PCR) Not detected (NOT DETECT) 05/23/21 23:19 Influenza Type A Ag Negative (Negative) 05/23/21 23:19 Influenza Type B Ag Negative (Negative) 05/23/21 23:19 SARS-CoV-2 (PCR) Detected (NOT DETECT) A 05/23/21 23:19 Vitals Last Vital Signs Temp 98.0 F 05/31/21 16:00 Pulse 99 05/31/21 16:00 Resp 18 05/31/21 16:00 BP 107/74 05/31/21 16:00 Pulse Ox 88 L 05/31/21 16:10 Discharge Plan Discharge Patient Disposition: Home Condition: Stable Prescriptions: New linezolid 600 mg tablet 600 mg PO BID 14 Days Qty: 28 0RF Humalog U-100 Insulin 100 unit/mL Solution See Rx Instructions .ROUTE .COMPLEX Qty: 10 0RF Rx Instructions: Insulin SSI gabapentin 100 mg Capsule 200 mg PO BID Qty: 360 0RF Continued Arthrotec 75 75-200 mg-mcg tablet,IR,delayed rel,biphasic 1 tab PO Q6H 0RF atorvastatin 40 mg tablet 40 mg PO DAILY 0RF Wellbutrin SR 150 mg tablet sustained-release 12 hr 150 mg PO BID 0RF donepezil 5 mg tablet 5 mg PO BEDTIME 0RF albuterol sulfate 2.5 mg /3 mL (0.083 %) solution for nebulization 2.5 mg inhalation Q4H PRN (Reason: Shortness Of Breath) 0RF omeprazole 40 mg capsule,delayed release(DR/EC) 40 mg PO DAILY 0RF aspirin 81 mg tablet,delayed release (DR/EC) 81 mg PO DAILY 0RF sertraline 25 mg tablet 25 mg PO DAILY 0RF ProAir HFA 90 mcg/actuation HFA aerosol inhaler 2 puff INHALATION Q4H PRN (Reason: Shortness Of Breath) 0RF Levemir U-100 Insulin 100 unit/mL solution 40 unit SUBCUT DAILY 0RF ondansetron HCl [Zofran] 4 mg tablet 4 mg PO Q6H PRN (Reason: nausea and vomiting) Qty: 10 0RF Changed Levemir U-100 Insulin 100 unit/mL solution 20 unit SUBCUT DAILY Qty: 0 0RF Discontinued trazodone 300 mg tablet 300 - 450 mg PO DAILY 0RF gabapentin 300 mg capsule 300 mg PO .COMPL 0RF Rx Instructions: 600 mg at breakfast, 600 mg evening metoclopramide HCl 10 mg tablet 10 mg PO QID 0RF Discharge Orders: Discharge Order (Routine); Ordered 05/31/21 Ordered By: Nirmal Castillo Other Ambulatory Orders: DME: Oxygen (Order) Location: None Selected Ordered By: Nirmal Castillo Physical Therapy Eval and Treat Outpatient (Order) Timeframe: 3 Days Facility: [facility] - Location: Physical Therapy Ordered By: Nirmal Castillo Referrals: [facility] [Outside] Cooper Villa [Primary Care Provider] - 4-7 days Discharge Diet: Diabetic and Soft Mechanical Discharge Activity: Increase activity as tolerated and Oxygen as instructed Patient Instructions: Linezolid (By mouth), Bacterial Pneumonia (GEN), Bacteremia (GEN), Opioid Safety Activity Restrictions/Additional Instructions: Continue antibiotic course with linezolid. Follow-up with your primary doctor for reassessment of MRSA bacteremia and treatment please have your primary doctor follow blood counts due to risk of bone marrow suppression with this medication. In case you experience any peripheral neuropathy, or confusion, fever, or any other concerning symptoms, seek medical attention immediately as discussed. Consider follow-up blood culture 1 month after completion of treatment. Discussed with your doctor regarding repetitive movements with the right eye, concern for tardive dyskinesia. Metoclopramide for now is discontinued. Due to acute encephalopathy on presentation some of your medications were changed, please note reduced dose of gabapentin down to 200 mg twice a day, for now please do not continue trazodone. Continue to monitor glucose at home. For now your insulin detemir dose is decreased in half to 20 units, in case glucose becomes elevated, increase insulin dose slowly by about 3 units/day. In case experiencing low blood glucose Discharge Attestations Time Spent in Discharge Care*: greater than 30 min Quality Metrics Clinical Quality Measures [ No reported AMI, CVA or VTE this stay] Coding Level of Care Code Acute Chg FW DC note Diagnoses Staphylococcus aureus bacteremia with sepsis A41.01 Acute respiratory failure with hypoxia J96.01 Pneumonia due to COVID-19 virus U07.1; J12.82 Acute encephalopathy G93.40 HTN (hypertension) with goal to be determined I10 Type 2 diabetes mellitus E11.9 Depression F32.A Tardive dyskinesia G24.01
== END 2021-05-31 17:45 | disposition home health service (06) | DRG 871 ==
LOC: ER 16:54 → MEDSURG 19:14
PROVIDERS: Family Medicine; Admitting Provider Student in an Organized Health Care Education/Training Program; Emergency Provider Family Medicine; PCP Family Medicine; Visit Provider Internal Medicine
DX: A41.02 Sepsis due to Methicillin resistant Staphylococcus aureus (principal); U07.1 COVID-19; J12.82 Pneumonia due to coronavirus disease 2019; J96.01 Acute respiratory failure with hypoxia; G92.8 Other toxic encephalopathy; E11.9 Type 2 diabetes mellitus without complications; J44.9 Chronic obstructive pulmonary disease, unspecified; E66.9 Obesity, unspecified; Z68.34 Body mass index [BMI] 34.0-34.9, adult; F32.A Depression, unspecified; E78.5 Hyperlipidemia, unspecified; I10 Essential (primary) hypertension; Z87.11 Personal history of peptic ulcer disease; D86.0 Sarcoidosis of lung; Z87.891 Personal history of nicotine dependence; Z86.73 Personal history of transient ischemic attack (TIA), and cerebral infarction without residual deficits; I25.10 Atherosclerotic heart disease of native coronary artery without angina pectoris; Z79.51 Long term (current) use of inhaled steroids; Z79.82 Long term (current) use of aspirin; F40.240 Claustrophobia; Z66 Do not resuscitate; G24.01 Drug induced subacute dyskinesia
CPT/HCPCS: 36415; 36416; 36600; 51702; 70470; 71045; 71275; 80051; 80053; 80202; 80306; 81001; 82330; 82550; 82805; 82962; 83036; 83540; 83550; 83605; 83735; 83880; 84100; 84145; 84443; 84484; 85025; 85378; 86140; 86403; 87040; 87077; 87086; 87150; 87186; 87205; 87449; 87635; 87641; 87804; 92507; 92523; 92526; 92610; 93005; 93306; 93970; 94640; 96365; 96366; 96372; 96375; 97110; 97116; 97161; 97165; 97530; 97535; 99285; J0456; J0696; J1100; J1650; J1815; J1940; J2270; J3370; J3490; J7050; J7626; Q9967

== ENCOUNTER 2022-01-01 19:19 | Observation (INO) | payer MEDICARE, MEDICAID, SELFPAY ==
[2022-01-01 19:22] VITALS: BMI 35.3
[2022-01-01 19:27] VITALS: BP 134/87; PULSE 86; RESP 16; TEMP 36.8; O2SAT 96
--- NOTE | 2022-01-01 19:29 | CTR_ITS ---
PROCEDURE INFORMATION: Exam: CT Abdomen And Pelvis Without Contrast Exam date and time: 01/01/2022 7:40 PM Age: 66 years old Clinical indication: Abdominal pain; Generalized; Prior surgery; Surgery date: 6+ months; Surgery type: Gb, ; additional info: Central abdominal pain TECHNIQUE: Imaging protocol: Computed tomography of the abdomen and pelvis without contrast. Radiation optimization: All CT scans at this facility use at least one of these dose optimization techniques: automated exposure control; mA and/or kV adjustment per patient size (includes targeted exams where dose is matched to clinical indication); or iterative reconstruction. COMPARISON: CT angio chest w abd pel w con 01/29/2020 8:16 PM RADIATION DOSE METRICS: Total DLP (mGy-cm): 855.41 FINDINGS: Lungs: Right lower lobe nodular airspace opacities partially visualized, perhaps somewhat more prominent compared to prior exam measuring up to 12 mm, consider nonemergent dedicated chest CT for further evaluation. Heart: Coronary artery atherosclerotic calcifications. Trace pericardial effusion. Liver: Normal. No mass. Gallbladder and bile ducts: Cholecystectomy. Pancreas: Normal. No ductal dilation. Spleen: Normal. No splenomegaly. Adrenal glands: Normal. No mass. Kidneys and ureters: Normal. No hydronephrosis. Stomach and bowel: Unremarkable. No obstruction. No mucosal thickening. Appendix: No evidence of appendicitis. Intraperitoneal space: Unremarkable. No free air. No significant fluid collection. Vasculature: Unremarkable. No abdominal aortic aneurysm. Lymph nodes: Unremarkable. No enlarged lymph nodes. Urinary bladder: Unremarkable as visualized. Reproductive: Unremarkable as visualized. Bones/joints: Unremarkable. No acute fracture. Soft tissues: Unremarkable. CT/CT abdomen pelvis con [id number] IMPRESSION: 1. Negative for acute inflammatory process in the abdomen or pelvis. 2. Right lower lobe nodular airspace opacities partially visualized, perhaps somewhat more prominent compared to prior exam measuring up to 12 mm, consider nonemergent dedicated chest CT for further evaluation. 3. Coronary artery atherosclerotic calcifications. 4. Cholecystectomy. 5. Trace pericardial effusion.
--- NOTE | 2022-01-01 19:32 | ED_ITS ---
HPI - Weakness General: Chief complaint: Weakness Stated complaint: SOB/WEAKNESS Time Seen by Provider: 01/01/22 19:20 Source: patient Mode of arrival: EMS Limitations: no limitations History of Present Illness: This patient presents to the emergency department by EMS. She states that she has felt ill for the last week. She states that she has had some mid to epigastric abdominal pain. She states she just felt like she could not get out of bed today and therefore called EMS. She lives with her spouse who she states has not been ill. She states she has had some loose stools in the last 2 days but no blood in her stools. She denies fever, shortness of breath, chest pain. She states that she has been drinking water. She denies any known exposure to infectious disease. She states she has not felt this bad since last year when she had COVID. She is not immunized against COVID. MD Complaint: generalized weakness Location: generalized Associated symptoms: Reports decreased appetite; Denies chest pain, chills, melena, dysuria, fever(s), headache(s), nausea or vomiting Review of Systems Const: Denies: fever(s), chills or body aches Eyes: Denies: change in vision ENMT: Reports: dry mouth; Denies: throat pain, odynophagia, nasal discharge, nasal congestion or nasal obstruction Card: Denies: chest pain, palpitations, irregular heart rhythm or edema Resp: Denies: dyspnea, productive cough or non-productive cough GI: Reports: abdominal pain and diarrhea; Denies: nausea, vomiting, hematemesis or melena : Denies: flank pain, difficulty voiding, dysuria or urinary frequency Musc: Denies: neck pain, back pain, extremity pain or extremity swelling Skin/Breast: Denies: rash or pruritus Neuro: Denies: headache(s), numbness in extremities or weakness in extremities Psych: Denies: anxiety, depression or mood swings Endo: Denies: polyuria or polydipsia PFSH ED PFSH: Medical History Acute encephalopathy Depression HLD (hyperlipidemia) HTN (hypertension) with goal to be determined Peptic ulcer disease Pneumonia due to COVID-19 virus Sarcoidosis of lung Type 2 diabetes mellitus Surgical History History of cholecystectomy Knee joint replacement status Family History Mother Diabetes CHF (congestive heart failure) Social History Smoking and tobacco status: former smoker Alcohol intake: never Physical Exam Narrative: EXAM NARRATIVE: Patient obese female who is responsive and answers questions in a goal-directed fashion. Const: COMMON NORMALS: no acute distress, patient oriented x3 and alert GENERAL APPEARANCE: cooperative and comfortable NUTRITIONAL APPEARANCE: obese HENMT: COMMON NORMALS: normocephalic, Normal nasal mucous membranes and turbinates present, moist oral mucous membranes and oropharynx normal HEAD & SCALP: normocephalic NOSE: Normal nasal mucous membranes and turbinates present Eye: COMMON NORMALS: Equal, round and reactive pupils present, EOMs intact bilaterally and conjunctivae normal CONJUNCTIVA: Yes conjunctivae normal PUPIL: Yes Equal, round and reactive pupils present Neck/C-Spine: COMMON NORMALS: full ROM, no lymphadenopathy and no JVD Chest: COMMONS NORMALS: normal inspection of the chest Resp: COMMON NORMALS: normal respiratory effort, No retractions, No use of accessory muscles and clear to auscultation bilaterally AUSCULTATION: clear to auscultation bilaterally Cardio: COMMON NORMALS: no JVD, regular rate, regular rhythm, No murmurs present (Cardio) and Peripheral pulses 2+ throughout RATE: regular rate RHYTHM: regular rhythm PERIPHERAL PULSES: Peripheral pulses 2+ throughout GI: INSPECTION: Yes central obesity OTHER: Obese abdomen which is generally soft. She has no skin changes or ecchymosis. She does have tenderness in the supraumbilical region. Some voluntary guarding no rebound. No involuntary guarding. No bruits. No masses. : COMMON NORMALS: Yes no CVA tenderness BLADDER/KIDNEY EXAM: Yes no CVA tenderness Back/Pelvis: COMMON NORMALS: no CVA tenderness, thoracic and lumbar spine no rmal to inspection, no thoracic nor lumbar tenderness and straight leg raise negative bilaterally Extremity: COMMON NORMALS: normal to inspection, full ROM, capillary refill normal, no calf tenderness and no pedal edema Neuro: COMMON NORMALS: patient oriented x3, moves all extremities, no focal motor deficits and no sensory deficits noted SENSORIUM/ORIENTATION: Yes alert CRANIAL NERVES: Yes CN normal except as noted SPEECH: speech normal Psych: COMMON NORMALS: mental status grossly normal Skin: COMMON NORMALS: no rashes or lesions noted, no wounds and turgor normal GENERAL SKIN EXAM: no rashes or lesions noted and turgor normal Course Reevaluation(s): Reevaluation #1: Patient's evaluation this evening reveals evidence of urinary tract infection. We will plan on continued IV fluids and IV antibiotics. Family is very concerned about her being able to care for herself at home given that she has a disabled and that she was globally weak and could not get out of bed unaided. Discussed with hospitalist regarding place during an observation for r eevaluation and continued treatment. Time: 22:20 Consultations: Consultation #1: Discussed with Dr. Velez who agreed to place her in observation for continued hydration, IV antibiotics and observation. Time: 22:39 Vital Signs: Vital signs: Vital Signs Temperature 98.3 F 01/01/22 19:27 Pulse Rate 75 01/01/22 21:57 Respiratory Rate 17 01/01/22 21:57 Blood Pressure 129/79 01/01/22 21:57 Pulse Oximetry 97 01/01/22 21:57 Oxygen Delivery Me thod 01/01/22 21:57 Oxygen Flow Rate 2 01/01/22 21:57 MDM - Weakness Medical Decision Making 66-year-old lady with a strong history of morbid obesity, COPD presented to the emergency department because of global weakness and not feeling well over the past several days. She states that she felt so weak generally that she could not get out of bed. She states there was no focal weakness, etc. Her evaluation tonight revealed her to have no evidence that suggest a DATA ENTRY MANAGER condition. Her imaging also did not reveal any significant intra-abdominal pathology. She did have evidence of a urinary tract infection that should be amenable to IV antibiotics. Because of her comorbidities, and generalized illness and fatigue for being placed into observation for continued treatment and reassessment. Lab Data : 01/01/22 20:06 01/01/22 20:06 Radiology Impressions Abdomen/Pelvis CT 01/01/22 19:29 IMPRESSION: 1. Negative for acute inflammatory process in the abdomen or pelvis. 2. Right lower lobe nodular airspace opacities partially visualized, perhaps somewhat more prominent compared to prior exam measuring up to 12 mm, consider nonemergent dedicated chest CT for further evaluation. 3. Coronary artery atherosclerotic calcifications. 4. Cholecystectomy. 5. Trace pericardial effusion. Laboratory Results WBC 9.3 10^3/uL (4.0-10.0) 01/01/22 20:06 RBC 4.89 10^6/uL (4.1-5.3) 01/01/22 20:06 Hgb 13.8 g/dL (11.5-15.3) 01/01/22 20:06 Hct 40.7 % (37.0-47.0) 01/01/22 20:06 MCV 83.2 fl (81-99) 01/01/22 20:06 MCH 28.2 pg (28.0-34.0) 01/01/22 20:06 MCHC 33.9 g/dL (30.0-36.0) 01/01/22 20:06 RDW 12.5 % (12.1-15.1) 01/01/22 20:06 Plt Count 283 10^3/cmm (130-400) 01/01/22 20:06 MPV 10.6 fL (7.4-10.4) H 01/01/22 20:06 Neut % (Auto) 59.6 % 01/01/22 20:06 Lymph % (Auto) 28.9 % 01/01/22 20:06 Haskell % (Auto) 5.2 % 01/01/22 20:06 Eos % (Auto) 5.5 % 01/01/22 20:06 Baso % (Auto) 0.6 % 01/01/22 20:06 Neut # (Auto) 5.55 10^3/uL (1.8-7.7) 01/01/22 20:06 Lymph # (Auto) 2.7 10^3/uL (0.8-4.8) 01/01/22 20:06 Haskell # (Auto) 0.5 10^3/uL (0.2-0.9) 01/01/22 20:06 Eos # (Auto) 0.5 10^3/uL (0.0-0.8) 01/01/22 20:06 Baso # (Auto) 0.1 10^3/uL (0.0-0.1) 01/01/22 20:06 Nucleated RBC % (auto) 0 % 01/01/22 20:06 Nucleated RBCs # 0.0 /100WBC 01/01/22 20:06 Sodium 138 mmol/L (136-145) 01/01/22 20:06 Potassium 3.8 mmol/L (3.5-5.1) 01/01/22 20:06 Chloride 103 mmol/L (98-107) 01/01/22 20:06 Carbon Dioxide 25 mmol/L (22-29) 01/01/22 20:06 Anion Gap 13.8 (5-19) 01/01/22 20:06 BUN 11 mg/dL (8-23) 01/01/22 20:06 Creatinine 0.9 mg/dL (0.5-0.9) 01/01/22 20:06 GFR Calculation 62.8 mL/min (90-130) L 01/01/22 20:06 Glucose 111 mg/dL (65-115) 01/01/22 20:06 POC Glucose 106 mg/dL (70-110) 01/01/22 19:53 Calculated Osmolality 286 mOsm/kg (285-295) 01/01/22 20:06 Calcium 9.3 mg/dL (8.5-10.5) 01/01/22 20:06 Total Bilirubin 0.3 mg/dL (0.15-1.2) 01/01/22 20:06 AST 17 U/L (0-32) 01/01/22 20:06 ALT 20 U/L (0-33) 01/01/22 20:06 Alkaline Phosphatase 69 U/L (35-105) 01/01/22 20:06 Total Protein 6.7 g/dL (6.6-8.7) 01/01/22 20:06 Albumin 3.5 g/dL (3.5-5.2) 01/01/22 20:06 Globulin 3.2 g/dL (1.3-4.6) 01/01/22 20:06 Lipase 28 U/L (13-60) 01/01/22 20:06 Urine Color Yellow (Yellow) 01/01/22 21:05 Urine Appearance Hazy (CLEAR) A 01/01/22 21:05 Urine pH 5 (5-7) 01/01/22 21:05 Ur Specific [place] 1.010 (1.005-1.030) 01/01/22 21:05 Urine Protein Neg (Negative) 01/01/22 21:05 Urine Glucose (UA) Norm (Normal) 01/01/22 21:05 Urine Ketones Negative (Negative) 01/01/22 21:05 Urine Blood Neg (Negative) 01/01/22 21:05 Urine Nitrate Positive (Negative) H 01/01/22 21:05 Urine Bilirubin Neg (Negative) 01/01/22 21:05 Urine Urobilinogen Norm mg/dL (Negative) 01/01/22 21:05 Ur Leukocyte Esterase 1+ (Negative) H 01/01/22 21:05 Urine RBC 0-4 /hpf (0-2) H 01/01/22 21:05 Urine WBC 5-10 /hpf (0-5) H 01/01/22 21:05 Ur Squamous Epith Cells 0-4 /hpf (0-5) H 01/01/22 21:05 Amorphous Sediment Not Reportable 01/01/22 21:05 Urine Bacteria 2+ /hpf (NONE) H 01/01/22 21:05 SARS-CoV-2 Ag (Rapid) Negative (Negative) 01/01/22 20:06 Discharge Plan Discharge Patient Disposition: Placed in Observation Clinical Impression: Urinary tract infection Condition: Stable Prescriptions: No Action Arthrotec 75 75-200 mg-mcg tablet,IR,delayed rel,biphasic 1 tab PO Q6H atorvastatin 40 mg tablet 40 mg PO DAILY Wellbutrin SR 150 mg tablet sustained-release 12 hr 150 mg PO BID donepezil 5 mg tablet 5 mg PO BEDTIME albuterol sulfate 2.5 mg /3 mL (0.083 %) solution for nebulization 2.5 mg inhalation Q4H PRN (Reason: Shortness Of Breath) omeprazole 40 mg capsule,delayed release(DR/EC) 40 mg PO DAILY aspirin 81 mg tablet,delayed release (DR/EC) 81 mg PO DAILY sertraline 25 mg tablet 25 mg PO DAILY ProAir HFA 90 mcg/actuation HFA aerosol inhaler 2 puff INHALATION Q4H PRN (Reason: Shortness Of Breath) Levemir U-100 Insulin 100 unit/mL solution 20 unit SUBCUT DAILY Qty: 0 0RF Humalog U-100 Insulin 100 unit/mL Solution See Rx Instructions .ROUTE .COMPLEX Qty: 10 0RF Rx Instructions: Insulin SSI gabapentin 100 mg Capsule 200 mg PO BID Qty: 360 0RF ondansetron HCl [Zofran] 4 mg tablet 4 mg PO Q6H PRN (Reason: nausea and vomiting) Qty: 10 0RF Referrals: Cooper Villa [Primary Care Provider] - Coding Level of Care Code ED Professor Of Special Education for Chg Fwd Exam Comprehensive
[2022-01-01 19:58] LABS: Glucose Point of Care 106 mg/dL (70-110)
[2022-01-01 20:12] LABS: Basophils # 0.1 10^3/uL (0.0-0.1); Basophils % 0.6 %; Eosinophils # 0.5 10^3/uL (0.0-0.8); Eosinophils % 5.5 %; Hematocrit 40.7 % (37.0-47.0); Hemoglobin 13.8 g/dL (11.5-15.3); Lymphocytes # 2.7 10^3/uL (0.8-4.8); Lymphocytes % 28.9 %; Mean Corpuscular HGB Conc 33.9 g/dL (30.0-36.0); Mean Corpuscular Hemoglobin 28.2 pg (28.0-34.0); Mean Corpuscular Volume 83.2 fl (81-99); Mean Platelet Volume 10.6 fL (7.4-10.4); Monocytes # 0.5 10^3/uL (0.2-0.9); Monocytes % 5.2 %; Neutrophils # 5.55 10^3/uL (1.8-7.7); Neutrophils % 59.6 %; Nucleated Red Blood Cells % 0 %; Platelet Count 283 10^3/cmm (130-400); Red Blood Count 4.89 10^6/uL (4.1-5.3); Red Cell Distribution Width 12.5 % (12.1-15.1); White Blood Count 9.3 10^3/uL (4.0-10.0)
[2022-01-01] MEDS: sodium chloride 0.9% 500 ML IV (20:18)
[2022-01-01 20:38] LABS: SARS Covid-2 Antigen Negative (Negative)
[2022-01-01 20:53] VITALS: BP 127/79; PULSE 74; RESP 17; O2SAT 98
[2022-01-01 21:09] VITALS: BP 107/62; PULSE 72; RESP 18; O2SAT 97
[2022-01-01 21:13] LABS: Alanine Aminotransferase 20 U/L (0-33); Albumin Level 3.5 g/dL (3.5-5.2); Alkaline Phosphatase 69 U/L (35-105); Anion Gap 13.8 (5-19); Aspartate Amino Transferase 17 U/L (0-32); Blood Urea Nitrogen 11 mg/dL (8-23); Calcium 9.3 mg/dL (8.5-10.5); Carbon Dioxide 25 mmol/L (22-29); Chloride 103 mmol/L (98-107); Globulin 3.2 g/dL (1.3-4.6); Glomerular Filtration Rate 62.8 mL/min (90-130); Glucose 111 mg/dL (65-115); Lipase 28 U/L (13-60); Osmolality Calculated 286 mOsm/kg (285-295); Potassium 3.8 mmol/L (3.5-5.1); Sodium 138 mmol/L (136-145); Total Bilirubin 0.3 mg/dL (0.15-1.2); Total Protein 6.7 g/dL (6.6-8.7)
[2022-01-01 21:43] LABS: Urine Appearance Hazy (CLEAR); Urine Color Yellow (Yellow); pH Urine 5 (5-7)
[2022-01-01 21:44] LABS: Add Urine Microscopic? YES; Bilirubin Urine Neg (Negative); Blood Urine Neg (Negative); Glucose Urine UA Norm (Normal); Ketones Urine Negative (Negative); Leukocyte Esterase Urine 1+ (Negative); Nitrate Urine Positive (Negative); Protein Urine Neg (Negative); Urobilinogen Urine Norm (Negative)
[2022-01-01 21:51] LABS: Add Urine Culture? Yes; Bacteria Urine 2+ /hpf; RBC Urine 0-4 /hpf (0-2); Squamous Epithelial Cell Urine 0-4 /hpf (0-5)
[2022-01-01 21:57] VITALS: BP 129/79; PULSE 75; RESP 17; O2SAT 97
[2022-01-01] MEDS: cefTRIAXone 2,000 MG in sodium chloride 0.9% (plus) 50 ML 100 MG IV (22:33)
[2022-01-01 23:11] VITALS: BP 109/75; PULSE 71; RESP 16; O2SAT 96
--- NOTE | 2022-01-01 23:58 | PM.HP ---
Providers/Chief Complaint Admitting Physician: Hiren Miranda MD Primary Care Provider: Cooper Villa Chief Complaint: SOB/WEAKNESS History of Present Illness Katerine Moss is a 66 year old female with a past medical history of type 2 diabetes mellitus, hypertension, depression, history of COVID-19 infection respiratory failure, history of MRSA bacteremia who presents [facility] due to weakness. Patient tells me that for the last few weeks, she has had increased fatigue, malaise, she is barely able to walk due to weakness. No episodes of confusion, no nausea, no vomiting, chest pain, no palpitations, shortness of breath. No strokelike symptoms no facial droop no slurring of words, no focal weakness. She tells her that if she feels weak all over. No history recently of COVID infection, Review of Systems Const: Reports: fatigue and malaise Card: Denies: chest pain Resp: Denies: dyspnea Medications/Allergies Home Medications Medication Instructions Recorded Confirmed Last Taken Type ondansetron HCl 4 mg tablet 4 mg PO Q6H PRN nausea and 01/29/20 05/24/21 Unknown Rx (Zofran) vomiting #10 tabs albuterol sulfate 2.5 mg inhalation Q4H PRN 05/24/21 05/24/21 Unknown History Shortness Of Breath albuterol sulfate 90 mcg/actuation 2 puff inhalation Q4H PRN 05/24/21 05/24/21 Unknown History aerosol inhaler (ProAir HFA) Shortness Of Breath aspirin 81 mg tablet,delayed 81 mg PO DAILY 05/24/21 05/24/21 Unknown History release atorvastatin 40 mg tablet 40 mg PO DAILY 05/24/21 05/24/21 Unknown History bupropion HCl 150 mg tablet,12 hr 150 mg PO BID 05/24/21 05/24/21 Unknown History sustained-release (Wellbutrin SR) diclofenac 75 mg-misoprostol 200 1 tab PO Q6H 05/24/21 05/24/21 Unknown History mcg tablet,immediate,delayed release (Arthrotec) donepezil 5 mg tablet 5 mg PO BEDTIME 05/24/21 05/24/21 Unknown History omeprazole 40 mg capsule,delayed 40 mg PO DAILY 05/24/21 05/24/21 Unknown History release sertraline 25 mg tablet 25 mg PO DAILY 05/24/21 05/24/21 Unknown History gabapentin 100 mg capsule 200 mg PO BID #360 caps 05/31/21 Unknown Rx insulin detemir U-100 100 unit/mL 20 unit (0.2 mL) SUBCUT DAILY #0 mL 05/31/21 05/24/21 Unknown Rx subcutaneous solution (Levemir U-100 Insulin) insulin lispro 100 unit/mL See Rx Instructions .Route 05/31/21 Unknown Rx subcutaneous solution (Humalog .COMPLEX #10 mL U-100 Insulin) Allergies Allergy/AdvReac Type Severity Reaction Status Date / Time Penicillins Allergy ALGY-Rash Verified 05/24/21 15:16 PFSH Acute PFSH: Medical History Acute encephalopathy Depression HLD (hyperlipidemia) HTN (hypertension) with goal to be determined Peptic ulcer disease Pneumonia due to COVID-19 virus Sarcoidosis of lung Type 2 diabetes mellitus Surgical History History of cholecystectomy Knee joint replacement status Family History Mother Diabetes CHF (congestive heart failure) Social History Smoking and tobacco status: former smoker Alcohol intake: never Vitals/I&O/Wt Last Vital Signs Temp 98.3 F 01/01/22 19:27 Pulse 71 01/01/22 23:11 Resp 16 01/01/22 23:11 BP 109/75 01/01/22 23:11 Pulse Ox 96 01/01/22 23:11 O2 Del Method 01/01/22 23:11 O2 Flow Rate 2 01/01/22 23:11 01/01/22 01/01/22 01/02/22 14:59 22:59 06:59 Intake Total 500 / 500 50 / 550 Balance 500 / 500 50 / 550 Weight last 48 hrs Weight 84.822 kg Physical Exam Const: COMMON NORMALS: no acute distress and patient oriented x3 HENMT: COMMON NORMALS: normocephalic HEAD & SCALP: normocephalic Eye: COMMON NORMALS: Equal, round and reactive pupils present and EOMs intact bilaterally Neck/C-Spine: COMMON NORMALS: no JVD Resp: COMMON NORMALS: normal respiratory effort, No retractions, No use of accessory muscles and clear to auscultation bilaterally AUSCULTATION: clear to auscultation bilaterally Cardio: COMMON NORMALS: no JVD, regular rate, regular rhythm, S1 normal heart sound present and S2 normal heart sound present RATE: regular rate RHYTHM: regular rhythm HEART SOUNDS: S1 normal heart sound present and S2 normal heart sound present GI: COMMON NORMALS: Normal to inspection, nondistended, normoactive bowel sounds present, Soft to palpation, non-tender, No hepatosplenomegaly present, no masses and no bruits PALPATION: Yes Soft to palpation and Yes No hepatosplenomegaly present Extremity: COMMON NORMALS: no calf tenderness and no pedal edema Neuro: COMMON NORMALS: patient oriented x3, CN's II-XII intact bilaterally, moves all extremities and no focal motor deficits Psych: COMMON NORMALS: mental status grossly normal Data : 01/01/22 20:06 01/01/22 20:06 A&P Assessment and plan (1) Urinary tract infection: Status: Acute Plan Generalized weak, UTI -Has a history of MRSA UTI, start vancomycin, Rocephin -Follow urine cultures, blood cultures -PT OT, speech therapy eval, TSH -Continue Levemir 10 units subcu daily, low-dose sliding scale -Continue aspirin, statin, gabapentin -Full code -Lovenox for DVT prophylaxis Attestations Medical Necessity Statement*: Patient requires hospitalization, outpatient observation, for general weakness, UTI Coding Level of Care Code Acute 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
[2022-01-02] VITALS (10 sets, daily range): BP systolic 121–154; BP diastolic 73–89; PULSE 61–80; RESP 14–18; TEMP 36.4–36.9; O2SAT 91–95; BMI 35.3
--- NOTE | 2022-01-02 01:00 | PC.NURSE ---
ADMIT NOTE Pt received to room from ER at 0025. Alert and oriented. Says just has not felt well all day. Reports being very weak when she woke up this morning and I could hardly get out of bed Report decreased appetite and some nausea without vomiting but is hungry on admit and was given sandwich and milk. c/o pain in her back and shoulders. Had O2 in place but was removed. Pt denies SOB and says does not wear O2. Will monitor sat. security monitor applied. Did not want to change into gown due to being cold. Warm blanket provided. RN to complete admission assessment
--- NOTE | 2022-01-02 01:16 | PC.PHAR ---
Pharmacokinetic dosing service Date: 01/02/22 Time: 117 Objective: Patient: Katerine Moss Floor: 251-2 Age: 66 yo Serum creatinine: 0.9 mg/dL Height: 61.0 Inches Weight (kg): 84.822 Diagnosis: Relevant medical/social history: Cultures and sensitivities: Other labs: Assessment: IBW (kg): 47.80 Dosing wt(kg): 84.822 Estimated Creatinine clearance (ml/min): 47.0 CRCL method: Cockcroft and Gault using ibw(default). Drug selected: Vancomycin Loading dose (mg): 0 Vd (liters): 76.3 (factor used: 0.9 L/kg) Edgar (hr-1): 0.043 Half life (hrs): 16.12 Recommended dose: 1500 mg Interval: 24 hrs Infusion time (hrs): 1.5 Predicted peak (mcg/mL): 29.6 Predicted trough (mcg/mL): 11.25 Total body weight is being used for vancomycin dosing. Renal function is stable [ ] /unstable [ ] Recommendations: Give Vancomycin 1500 mg q 24 hrs with an expected Cpeak of 29.6 mcg/ml and an expected Ctrough of 11.25 mcg/ml Renal dosing of other antibiotics (review renal dosing of other medications and list guidelines here): Thank you for the consult, will continue to follow. Signature: Vandana Gutiérrez [facility]
[2022-01-02] MEDS: vancomycin 1,500 MG/300 ML PIGGYBACK 200 MG IV (01:30)
[2022-01-02] MEDS: enoxaparin 40 mg/0.4 mL Syringe SUBCUT (01:30)
[2022-01-02] MEDS: pantoprazole 40 mg SDV IVP ×2 (01:49→23:08)
[2022-01-02] MEDS: acetaminophen 325 mg Tablet 650 MG PO ×2 (02:06→21:09)
[2022-01-02 06:48] LABS: Glucose Point of Care 112 mg/dL (70-110)
[2022-01-02 07:30] LABS: Basophils # 0.1 10^3/uL (0.0-0.1); Eosinophils # 0.5 10^3/uL (0.0-0.8); Eosinophils % 5.4 %; Hematocrit 39.7 % (37.0-47.0); Hemoglobin 13.2 g/dL (11.5-15.3); Lymphocytes # 2.5 10^3/uL (0.8-4.8); Lymphocytes % 29.9 %; Mean Corpuscular HGB Conc 33.2 g/dL (30.0-36.0); Mean Corpuscular Hemoglobin 28.2 pg (28.0-34.0); Mean Corpuscular Volume 84.8 fl (81-99); Mean Platelet Volume 10.4 fL (7.4-10.4); Monocytes # 0.7 10^3/uL (0.2-0.9); Neutrophils # 4.64 10^3/uL (1.8-7.7); Neutrophils % 55.5 %; Nucleated Red Blood Cells % 0 %; Platelet Count 261 10^3/cmm (130-400); Red Blood Count 4.68 10^6/uL (4.1-5.3); Red Cell Distribution Width 12.7 % (12.1-15.1); White Blood Count 8.4 10^3/uL (4.0-10.0)
[2022-01-02 08:03] LABS: Anion Gap 14.6 (5-19); Blood Urea Nitrogen 11 mg/dL (8-23); Calcium 9.3 mg/dL (8.5-10.5); Carbon Dioxide 25 mmol/L (22-29); Chloride 104 mmol/L (98-107); Glomerular Filtration Rate 62.8 mL/min (90-130); Glucose 124 mg/dL (65-115); Magnesium 1.4 mg/dL (1.7-2.3); Osmolality Calculated 291 mOsm/kg (285-295); Potassium 3.6 mmol/L (3.5-5.1); Sodium 140 mmol/L (136-145); Thyroid Stimulating Hormone 1.65 uIU/mL (0.27-4.20)
[2022-01-02] MEDS: aspirin 81 mg EC Tablet PO (08:53)
[2022-01-02] MEDS: buPROPion SR (12 HR) 150 mg Tablet PO ×2 (08:53→17:32)
[2022-01-02] MEDS: atorvastatin 40 mg Tablet PO (08:53)
[2022-01-02] MEDS: gabapentin 100 mg Capsule 200 MG PO ×2 (08:53→17:32)
[2022-01-02] MEDS: sertraline 50 mg Tablet 25 MG PO (08:54)
--- NOTE | 2022-01-02 09:57 | PM.PN ---
Subjective Subjective: Patient is endorsing dehydrated, she does have tardive dyskinesia She is not complaining of active chest pain shortness of breath or dysuria Vitals/I&O/Wt Last Vital Signs Temp 97.8 F 01/02/22 07:33 Pulse 71 01/02/22 08:00 Resp 18 01/02/22 08:00 BP 137/84 01/02/22 07:33 Pulse Ox 95 01/02/22 08:00 O2 Del Method 01/02/22 08:00 O2 Flow Rate 2 01/01/22 23:11 01/01/22 01/02/22 01/02/22 22:59 06:59 14:59 Intake Total 500 / 500 710 / 1210 Output Total 400 / 400 Balance 500 / 500 310 / 810 Weight last 48 hrs Weight 84.822 kg Weight 84.822 kg Weight 84.822 kg Physical Exam Narrative: Tardive dyskinesia signs of eye twitching and tongue twisting S1, S2 Looks dehydrated Abdomen soft Awake and alert Nonfocal exam Currently on room air Data : 01/02/22 07:18 01/02/22 07:18 A&P Assessment and plan (1) Urinary tract infection: Status: Acute (2) Tardive dyskinesia: Status: Acute Plan UTI related generalized weakness Clinically patient looks dehydrated Continue IV fluids and IV antibiotics Will follow with urine cultures Patient is showing signs of tardive dyskinesia Stimuli disabled A. 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
[2022-01-02 11:06] LABS: Glucose Point of Care 226 mg/dL (70-110)
[2022-01-02] MEDS: potassium chloride ER 20 mEq Tablet 40 MEQ PO (11:57)
[2022-01-02] MEDS: magnesium oxide 400 mg tablet PO ×2 (11:57→17:32)
[2022-01-02] MEDS: insulin lispro 100 unit/1 mL SUBCUT (11:58)
--- NOTE | 2022-01-02 12:14 | PC.CHAP ---
Pastoral Care Encounter/Spiritual Assessment Type of Contact [] Declined iron worker foreman visit [] Patient/Family/Request visit [] Outpatient visit [] Follow-up visit [] Physician referral [] Code/Alert [x] Routine visit [] Staff referral [] Actively dying [] Patient sleeping [] Family support [] [] Out of room [] Palliative care [] [x] Receiving care in room [] Pre-surgical visit [] Trauma [] Long length of stay [] ICU visit [] Other: Relational/Emotional Strength [x] Patient feels connected with others/family/visitors/staff [] Distress [] Loneliness/isolation [] Abandonment Spirituality of Patient [x] Person of Carlie [] Attends Oriental Orthodox of their Carlie [x] Believes in Prayer [] Reads Bible or Quaker materials [] There are Spiritual issues to be addressed Municipal Bond Trader Interventions [x] Prayer [x] Active listening [x] Non-anxious presence [x] Spiritual/emotional support [] Crisis/trauma care [x] Spiritual counseling [] Bereavement support [] Provided bereavement packet [] Provided Bible/devotional materials [] Provided toy/stuffed animal, coloring book to patient or family member [] Provided Communion [] Anointing/[place] [] Salvation [x] Completed spiritual assessment [] Other: Impact on Illness or Injury [] Angry [] Fearful [x] Anxious [] Often cries [] Exhaustion [] Unable to work [] Unable to attend protestant [] Unable to walk/stand [] Unable to read [] Unable to drive [] Unable to eat/drink [] Unable to sleep [] Unable to be with family [] Patient intubated [] Other: Summary tests, waiting on results from doctor feels good has a good attitude will go home Time spent with patient 10 mins
[2022-01-02 12:31] LABS: Glucose Point of Care 186 mg/dL (70-110)
--- NOTE | 2022-01-02 16:52 | PC.NURSE ---
During shift patient pulled out NG tube, feedings stopped, dr barnard notified, changed accu checks to [facility] per Dr. Barnard.
[2022-01-02 17:14] LABS: Glucose Point of Care 133 mg/dL (70-110)
--- NOTE | 2022-01-02 19:06 | PC.NURSE ---
VRBO for trazodone 75mg PO BEDTIME.
[2022-01-02] MEDS: trazodone 50 mg Tablet 75 MG PO (21:05)
[2022-01-02] MEDS: donepezil 5 MG Tablet PO (21:05)
[2022-01-02 21:47] LABS: Glucose Point of Care 160 mg/dL (70-110)
[2022-01-02] MEDS: cefTRIAXone 1,000 MG in sodium chloride 0.9% (plus) 50 ML 100 MG IV (23:08)
[2022-01-03] VITALS (7 sets, daily range): BP systolic 104–146; BP diastolic 74–89; PULSE 68–83; RESP 16–18; TEMP 36.7–36.9; O2SAT 93–97
[2022-01-03] MEDS: enoxaparin 40 mg/0.4 mL Syringe SUBCUT (01:19)
[2022-01-03] MEDS: vancomycin 1,500 MG/300 ML PIGGYBACK 100 MG IV (01:20)
[2022-01-03 06:55] LABS: Glucose Point of Care 137 mg/dL (70-110)
--- NOTE | 2022-01-03 07:32 | PM.DCS ---
Discharge Providers Date of Admission: 01/01/22 22:42 Date of Discharge: January 03, 2022 Attending Provider at Admission: Hiren Miranda MD Attending Provider at Discharge: Lacy Acuna MD Primary Care Provider: Cooper Villa Diagnoses at Discharge Discharge Diagnosis (1) Urinary tract infection: Status: Acute (2) Tardive dyskinesia: Status: Acute Reason for Visit Reason for Visit: SOB/WEAKNESS Hospital Course Hospital Course 66 yo Female who was admitted for generalized weakness related to UTI and dehydration. She was hydrated with IV fluids was given antibiotics. She has history of MRSA UTI at the time of discharge she will get levofloxacin and antinausea antibiotics. She remained afebrile no leukocytosis. No signs of bacteremia or sepsis. Patient has history of tardive dyskinesia. I have asked her to follow-up with her PCP for readjustment of her medications. Physical Exam Narrative: S1, S2 Looks slightly well hydrated Abdomen soft Awake and alert Nonfocal exam Currently on room air EOMI, PERRLA Discharge Data Studies Completed and Pending Completed Studies During Hospitalization Category Date Time Status CT abdomen pelvis wo con [id number] Stat Cat Scan 01/01/22 19:29 Completed Pending at discharge Category Date Time Status Basic Metabolic Panel AM LABS Lab 01/03/22 04:00 Ordered Urine Culture Stat Lab 01/01/22 21:05 Received Vancomycin Trough Timed Lab 01/05/22 01:00 Ordered Radiology Impressions Abdomen/Pelvis CT 01/01/22 19:29 IMPRESSION: 1. Negative for acute inflammatory process in the abdomen or pelvis. 2. Right lower lobe nodular airspace opacities partially visualized, perhaps somewhat more prominent compared to prior exam measuring up to 12 mm, consider nonemergent dedicated chest CT for further evaluation. 3. Coronary artery atherosclerotic calcifications. 4. Cholecystectomy. 5. Trace pericardial effusion. Laboratory Results WBC 8.4 10^3/uL (4.0-10.0) 01/02/22 07:18 RBC 4.68 10^6/uL (4.1-5.3) 01/02/22 07:18 Hgb 13.2 g/dL (11.5-15.3) 01/02/22 07:18 Hct 39.7 % (37.0-47.0) 01/02/22 07:18 MCV 84.8 fl (81-99) 01/02/22 07:18 MCH 28.2 pg (28.0-34.0) 01/02/22 07:18 MCHC 33.2 g/dL (30.0-36.0) 01/02/22 07:18 RDW 12.7 % (12.1-15.1) 01/02/22 07:18 Plt Count 261 10^3/cmm (130-400) 01/02/22 07:18 MPV 10.4 fL (7.4-10.4) 01/02/22 07:18 Neut % (Auto) 55.5 % 01/02/22 07:18 Lymph % (Auto) 29.9 % 01/02/22 07:18 [place] % (Auto) 8.0 % 01/02/22 07:18 Eos % (Auto) 5.4 % 01/02/22 07:18 Baso % (Auto) 1.0 % 01/02/22 07:18 Neut # (Auto) 4.64 10^3/uL (1.8-7.7) 01/02/22 07:18 Lymph # (Auto) 2.5 10^3/uL (0.8-4.8) 01/02/22 07:18 [place] # (Auto) 0.7 10^3/uL (0.2-0.9) 01/02/22 07:18 Eos # (Auto) 0.5 10^3/uL (0.0-0.8) 01/02/22 07:18 Baso # (Auto) 0.1 10^3/uL (0.0-0.1) 01/02/22 07:18 Nucleated RBC % (auto) 0 % 01/02/22 07:18 Nucleated RBCs # 0.0 /100WBC 01/02/22 07:18 Sodium 140 mmol/L (136-145) 01/02/22 07:18 Potassium 3.6 mmol/L (3.5-5.1) 01/02/22 07:18 Chloride 104 mmol/L (98-107) 01/02/22 07:18 Carbon Dioxide 25 mmol/L (22-29) 01/02/22 07:18 Anion Gap 14.6 (5-19) 01/02/22 07:18 BUN 11 mg/dL (8-23) 01/02/22 07:18 Creatinine 0.9 mg/dL (0.5-0.9) 01/02/22 07:18 GFR Calculation 62.8 mL/min (90-130) L 01/02/22 07:18 Glucose 124 mg/dL (65-115) H 01/02/22 07:18 POC Glucose 137 mg/dL (70-110) H 01/03/22 06:34 Calculated Osmolality 291 mOsm/kg (285-295) 01/02/22 07:18 Calcium 9.3 mg/dL (8.5-10.5) 01/02/22 07:18 Magnesium 1.4 mg/dL (1.7-2.3) L 01/02/22 07:18 Total Bilirubin 0.3 mg/dL (0.15-1.2) 01/01/22 20:06 AST 17 U/L (0-32) 01/01/22 20:06 ALT 20 U/L (0-33) 01/01/22 20:06 Alkaline Phosphatase 69 U/L (35-105) 01/01/22 20:06 Total Protein 6.7 g/dL (6.6-8.7) 01/01/22 20:06 Albumin 3.5 g/dL (3.5-5.2) 01/01/22 20:06 Globulin 3.2 g/dL (1.3-4.6) 01/01/22 20:06 Lipase 28 U/L (13-60) 01/01/22 20:06 TSH 1.65 uIU/mL (0.27-4.20) 01/02/22 07:18 Urine Color Yellow (Yellow) 01/01/22 21:05 Urine Appearance Hazy (CLEAR) A 01/01/22 21:05 Urine pH 5 (5-7) 01/01/22 21:05 Ur Specific [place] 1.010 (1.005-1.030) 01/01/22 21:05 Urine Protein Neg (Negative) 01/01/22 21:05 Urine Glucose (UA) Norm (Normal) 01/01/22 21:05 Urine Ketones Negative (Negative) 01/01/22 21:05 Urine Blood Neg (Negative) 01/01/22 21:05 Urine Nitrate Positive (Negative) H 01/01/22 21:05 Urine Bilirubin Neg (Negative) 01/01/22 21:05 Urine Urobilinogen Norm mg/dL (Negative) 01/01/22 21:05 Ur Leukocyte Esterase 1+ (Negative) H 01/01/22 21:05 Urine RBC 0-4 /hpf (0-2) H 01/01/22 21:05 Urine WBC 5-10 /hpf (0-5) H 01/01/22 21:05 Ur Squamous Epith Cells 0-4 /hpf (0-5) H 01/01/22 21:05 Amorphous Sediment Not Reportable 01/01/22 21:05 Urine Bacteria 2+ /hpf (NONE) H 01/01/22 21:05 SARS-CoV-2 Ag (Rapid) Negative (Negative) 01/01/22 20:06 Vitals Last Vital Signs Temp 98.0 F 01/03/22 04:00 Pulse 79 01/03/22 05:54 Resp 17 01/03/22 04:00 BP 137/84 01/03/22 04:00 Pulse Ox 93 01/03/22 04:00 O2 Del Method 01/03/22 04:00 O2 Flow Rate 2 01/02/22 20:00 Discharge Plan Discharge Patient Disposition: Home Condition: Stable Prescriptions: New doxycycline hyclate 100 mg tablet 100 mg PO BID 3 Days Qty: 6 0RF levofloxacin 750 mg tablet 750 mg PO DAILY 5 Days Qty: 5 0RF Continued atorvastatin 40 mg tablet 40 mg PO DAILY bupropion HCl [Wellbutrin SR] 150 mg tablet sustained-release 12 hr 150 mg PO BID donepezil 5 mg tablet 5 mg PO BEDTIME albuterol sulfate 2.5 mg /3 mL (0.083 %) solution for nebulization 2.5 mg inhalation Q4H PRN (Reason: Shortness Of Breath) omeprazole 40 mg capsule,delayed release(DR/EC) 40 mg PO DAILY aspirin 81 mg tablet,delayed release (DR/EC) 81 mg PO DAILY sertraline 25 mg tablet 25 mg PO DAILY albuterol sulfate [ProAir HFA] 90 mcg/actuation HFA aerosol inhaler 2 puff INHALATION Q4H PRN (Reason: Shortness Of Breath) insulin lispro [Humalog U-100 Insulin] 100 unit/mL Solution See Rx Instructions .ROUTE .COMPLEX Qty: 10 0RF Rx Instructions: Insulin SSI trazodone 300 mg tablet 300 mg PO BEDTIME gabapentin 300 mg capsule See Rx Instructions .ROUTE .COMPLEX Rx Instructions: Take 2 capsules by mouth with breakfast, take 2 capsules late afternoon and 3 capsules at bedtime. oxybutynin chloride 5 mg tablet 5 mg PO DAILY metoclopramide HCl 10 mg tablet 10 mg PO PRN PRN (Reason: Nausea) Discharge Orders: Discharge Order (Routine); Ordered 01/03/22 Ordered By: Lacy Acuna Other Ambulatory Orders: DME: Abraham (Order) Location: None Selected Ordered By: Lacy Acuna Referrals: Cooper Villa [Primary Care Provider] - 01/10/22 12:30 pm Patient Instructions: Doxycycline (By mouth), Levofloxacin (By mouth), Urinary Tract Infection in Women (GEN), Opioid Safety Discharge Attestations Time Spent in Discharge Care*: less than 30 min Quality Metrics Clinical Quality Measures [ No reported AMI, CVA or VTE this stay] Coding Level of Care Code Acute Chg [facility] note Diagnoses Urinary tract infection N39.0 Tardive dyskinesia G24.01
[2022-01-03] MEDS: magnesium oxide 400 mg tablet PO (08:26)
[2022-01-03] MEDS: aspirin 81 mg EC Tablet PO (08:26)
[2022-01-03] MEDS: atorvastatin 40 mg Tablet PO (08:26)
[2022-01-03] MEDS: gabapentin 100 mg Capsule 200 MG PO (08:26)
[2022-01-03] MEDS: sertraline 50 mg Tablet 25 MG PO (08:26)
[2022-01-03] MEDS: buPROPion SR (12 HR) 150 mg Tablet PO (08:29)
[2022-01-03 10:25] LABS: Blood Urea Nitrogen 12 mg/dL (8-23); Calcium 9.3 mg/dL (8.5-10.5); Carbon Dioxide 22 mmol/L (22-29); Chloride 101 mmol/L (98-107); Glomerular Filtration Rate 62.8 mL/min (90-130); Glucose 190 mg/dL (65-115); Osmolality Calculated 285 mOsm/kg (285-295); Sodium 135 mmol/L (136-145)
[2022-01-03 11:36] LABS: Glucose Point of Care 189 mg/dL (70-110)
[2022-01-03] MEDS: insulin lispro 100 unit/1 mL SUBCUT (12:02)
== END 2022-01-03 12:10 | disposition home or self-care (01) ==
LOC: ER 22:41 → MEDSURG 01-02 01:15
PROVIDERS: Admitting Provider Family Medicine; Emergency Provider Emergency Medicine; PCP Family Medicine; Visit Provider Internal Medicine
DX: N39.0 Urinary tract infection, site not specified (principal); G24.01 Drug induced subacute dyskinesia; E11.9 Type 2 diabetes mellitus without complications; I10 Essential (primary) hypertension; F32.A Depression, unspecified; Z86.16 Personal history of COVID-19; Z86.14 Personal history of Methicillin resistant Staphylococcus aureus infection; Z79.4 Long term (current) use of insulin; E78.5 Hyperlipidemia, unspecified; Z87.11 Personal history of peptic ulcer disease
CPT/HCPCS: 36415; 36416; 74176; 80048; 80053; 81001; 82962; 83690; 83735; 84443; 85025; 87077; 87086; 87186; 87426; 92523; 92610; 94664; 96365; 96367; 96372; 96375; 97110; 97161; 97165; 99285; C9113; G0378; J0696; J1650; J1815; J3370; J7040

== ENCOUNTER 2022-06-01 22:07 | Inpatient (IN) | payer MEDICARE, MEDICAID, SELFPAY ==
[2022-06-01 22:08] VITALS: BMI 34.4
[2022-06-01 22:11] VITALS: BP 119/81; PULSE 109; RESP 19; TEMP 37.2; O2SAT 95
[2022-06-01 22:13] VITALS: PULSE 81
--- NOTE | 2022-06-01 22:13 | XRR_ITS ---
PROCEDURE INFORMATION: Exam: XR Chest Exam date and time: 06/01/2022 10:15 PM Age: 66 years old Clinical indication: Shortness of breath; Additional info: SOB TECHNIQUE: Imaging protocol: Radiologic exam of the chest. Views: 1 view. COMPARISON: CR XR chest 1V portable [id number] 05/29/2021 4:12 AM FINDINGS: Lungs: There are increased opacities present in the retrocardiac region possibly representing atelectasis although left basilar infiltrate and pneumonia cannot be excluded. Pleural spaces: Unremarkable. No pleural effusion. No pneumothorax. Heart/Mediastinum: Unremarkable. No cardiomegaly. Bones/joints: Unremarkable. XR/XR chest 1V portable [id number] IMPRESSION: Increased densities in the retrocardiac region may represent atelectasis although left basilar infiltrate and pneumonia cannot be excluded.
--- NOTE | 2022-06-01 22:15 | ED_ITS ---
HPI - SOB/Dyspnea General: Chief Complaint: Shortness of Breath/Dyspnea Stated Complaint: SOB Time Seen by Provider: 06/01/22 22:09 Source: patient and EMS Mode of arrival: EMS Limitations: no limitations History of Present Illness: HPI Narrative: 66-year-old female with a history of COPD states over the last 2 days she has been having generalized weakness along with shortness of breath and a cough. She states that she became severely short of breath today called EMS and when EMS arrived she was 80% on room air she is requiring 3 L of oxygen here she does not wear oxygen at home she denies any chest pain she has had chills but no fever here. No vomiting or diarrhea. Associated symptoms: Deny abdominal pain, chest pain, nausea or vomiting Review of Systems Const: Reports: fatigue and malaise Eyes: Denies: blurry vision or eye discomfort ENMT: Denies: throat pain or dental pain Card: Denies: chest pain Resp: Reports: dyspnea GI: Denies: abdominal pain, nausea, vomiting or diarrhea : Denies: dysuria Musc: Denies: neck pain or back pain Skin/Breast: Denies: rash Neuro: Denies: headache(s) Psych: Denies: depression Joe/Lymph: Denies: easy bruising All/Imm: Denies: urticaria PFSH ED PFSH: Medical History (Updated 06/01/22 @ 23:42 by Fernando Benitez MD) Acute encephalopathy Depression HLD (hyperlipidemia) HTN (hypertension) with goal to be determined Peptic ulcer disease Pneumonia due to COVID-19 virus Sarcoidosis of lung Staphylococcus aureus bacteremia with sepsis Tardive dyskinesia Type 2 diabetes mellitus Urinary tract infection Surgical History History of cholecystectomy Knee joint replacement status Family History Mother Diabetes CHF (congestive heart failure) Social History Smoking and tobacco status: former smoker Alcohol intake: never Physical Exam Const: COMMON NORMALS: patient oriented x3 GENERAL APPEARANCE: ill appearing and frail appearing HENMT: COMMON NORMALS: normocephalic and atraumatic HEAD & SCALP: normocephalic and atraumatic Eye: COMMON NORMALS: Equal, round and reactive pupils present and EOMs intact bilaterally PUPIL: Yes Equal, round and reactive pupils present Neck/C-Spine: COMMON NORMALS: full ROM and supple Chest: COMMONS NORMALS: normal inspection of the chest and normal palpation of entire chest wall Resp: COMMON NORMALS: No retractions EFFORT & INSPECTION: Yes tachypneic AUSCULTATION: rales and wheezes Cardio: COMMON NORMALS: regular rate, regular rhythm and No murmurs present (Cardio) RATE: regular rate RHYTHM: regular rhythm GI: COMMON NORMALS: Normal to inspection, nondistended, normoactive bowel sounds present, Soft to palpation, non-tender and no masses PALPATION: Yes Soft to palpation Extremity: COMMON NORMALS: normal to inspection and full ROM Neuro: COMMON NORMALS: patient oriented x3, moves all extremities and no focal motor deficits Psych: COMMON NORMALS: mental status grossly normal, Normal thought process present and cooperative THOUGHT PROCESS: Normal thought process present Skin: COMMON NORMALS: no rashes or lesions noted and no wounds GENERAL SKIN EXAM: no rashes or lesions noted Course Vital Signs: Vital signs: Vital Signs Temperature 99.0 F 06/01/22 22:11 Pulse Rate 74 06/01/22 23:50 Respiratory Rate 17 06/01/22 23:50 Blood Pressure 149/81 06/01/22 23:50 Pulse Oximetry 95 06/01/22 23:50 Oxygen Delivery Me thod 06/01/22 22:26 Oxygen Flow Rate 2 06/01/22 22:26 MDM - SOB/Dyspnea Medical Decision Making Patient presents here with cough low-grade fever along with shortness of breath she is requiring oxygen here she is now on 2 L patient's x-ray looks like possible pneumonia we will start her on antibiotics get blood cultures COVID and flu negative spoke to hospitalist will admit Lab Data 06/01/22 22:18 06/01/22 22:18 Labs/Radiology: Radiology Impressions Chest X-Ray 06/01/22 22:13 IMPRESSION: Increased densities in the retrocardiac region may represent atelectasis although left basilar infiltrate and pneumonia cannot be excluded. Laboratory Results WBC 15.0 10^3/uL (4.0-10.0) H 06/01/22 22:18 RBC 4.74 10^6/uL (4.1-5.3) 06/01/22 22:18 Hgb 13.1 g/dL (11.5-15.3) 06/01/22 22:18 Hct 40.3 % (37.0-47.0) 06/01/22 22:18 MCV 85.0 fl (81-99) 06/01/22 22:18 MCH 27.6 pg (28.0-34.0) L 06/01/22 22:18 MCHC 32.5 g/dL (30.0-36.0) 06/01/22 22:18 RDW 13.1 % (12.1-15.1) 06/01/22 22:18 Plt Count 283 10^3/cmm (130-400) 06/01/22 22:18 MPV 10.7 fL (7.4-10.4) H 06/01/22 22:18 Neut % (Auto) 78.2 % 06/01/22 22:18 Lymph % (Auto) 13.6 % 06/01/22 22:18 [place] % (Auto) 5.5 % 06/01/22 22:18 Eos % (Auto) 1.7 % 06/01/22 22:18 Baso % (Auto) 0.4 % 06/01/22 22:18 Neut # (Auto) 11.77 10^3/uL (1.8-7.7) H 06/01/22 22:18 Lymph # (Auto) 2.0 10^3/uL (0.8-4.8) 06/01/22 22:18 [place] # (Auto) 0.8 10^3/uL (0.2-0.9) 06/01/22 22:18 Eos # (Auto) 0.3 10^3/uL (0.0-0.8) 06/01/22 22:18 Baso # (Auto) 0.1 10^3/uL (0.0-0.1) 06/01/22 22:18 Nucleated RBC % (auto) 0 % 06/01/22 22:18 Nucleated RBCs # 0.0 /100WBC 06/01/22 22:18 PT 13.40 SECONDS (12.1-14.9) 06/01/22 22:18 INR 0.99 (0.8-1.2) 06/01/22 22:18 D-Dimer 0.74 ug/mIFEU (0-0.59) H 06/01/22 22:18 Sodium 137 mmol/L (136-145) 06/01/22 22:18 Potassium 3.5 mmol/L (3.5-5.1) 06/01/22 22:18 Chloride 99 mmol/L (98-107) 06/01/22 22:18 Carbon Dioxide 25 mmol/L (22-29) 06/01/22 22:18 Anion Gap 16.5 (5-19) 06/01/22 22:18 BUN 10 mg/dL (8-23) 06/01/22 22:18 Creatinine 0.9 mg/dL (0.5-0.9) 06/01/22 22:18 GFR Calculation 62.8 mL/min (90-130) L 06/01/22 22:18 Glucose 152 mg/dL (65-115) H 06/01/22 22:18 Calculated Osmolality 286 mOsm/kg (285-295) 06/01/22 22:18 Calcium 9.5 mg/dL (8.5-10.5) 06/01/22 22:18 Total Bilirubin 0.4 mg/dL (0.15-1.2) 06/01/22 22:18 AST 20 U/L (0-32) 06/01/22 22:18 ALT 21 U/L (0-33) 06/01/22 22:18 Alkaline Phosphatase 70 U/L (35-105) 06/01/22 22:18 Troponin T Baseline 6 ng/L (0-10) 06/01/22 22:18 NT-Pro-B Natriuret Pep 111 pg/mL (0-125) 06/01/22 22:18 Total Protein 6.3 g/dL (6.6-8.7) L 06/01/22 22:18 Albumin 3.7 g/dL (3.5-5.2) 06/01/22 22:18 Globulin 2.6 g/dL (1.3-4.6) 06/01/22 22:18 Vitamin B12 819 pg/mL (232-1245) 06/01/22 22:18 Procalcitonin 0.09 ng/mL (0-0.5) 06/01/22 22:18 TSH 0.99 uIU/mL (0.27-4.20) 06/01/22 22:18 Influenza Type A Ag negative (Negative) 06/01/22 22:18 Influenza Type B Ag negative (Negative) 06/01/22 22:18 SARS-CoV-2 Ag (Rapid) negative (Negative) 06/01/22 22:18 Discharge Plan Discharge Patient Disposition: Admitted As Inpatient Admit Provider: Fernando Benitez Clinical Impression: Community acquired pneumonia, Acute respiratory failure with hypoxia Condition: Stable Coding Level of Care Code ED Digital Librarian for Adryan Kwok
--- NOTE | 2022-06-01 22:25 | ECG_ITS ---
[facility] Test Date: 2022-06-01 Pat Name: Katerine Moss Department: Room: Gender: Female Assistant Printer Floor Covering: : 1955 Requested By: Sreekanth Norton Order Number: [id number] Mayelin MD: David Winn M.D. Measurements Intervals [place] Rate: 76 P: 49 FL: 212 QRS: -74 QRSD: 107 T: 70 QT: 396 QTc: 447 Interpretive Statements SINUS RHYTHM WITH FIRST DEGREE AV BLOCK LOW QRS VOLTAGE IN PRECORDIAL LEADS [QRS DEFLECTION < 1.0 mV IN CHEST LEADS] INFERIOR MYOCARDIAL INFARCTION , OF INDETERMINATE AGE [40+ ms Q WAVE AND/OR ST/T ABNORMALITY IN II/aVF] ANTEROLATERAL MYOCARDIAL INFARCTION , OF INDETERMINATE AGE [40+ ms Q WAVE IN I/aVL/V3-V6] Compared to ECG 05/24/2021 08:33:12 Low QRS voltage now present Left-axis deviation no longer present Myocardial infarct finding still present Electronically Signed On 06-02-2022 19:06:01 ANTENNA DESIGN ENGINEER by David Winn M.D. [id number]
[2022-06-01 22:26] VITALS: PULSE 767; RESP 14; O2SAT 94
[2022-06-01 22:26] LABS: Basophils # 0.1 10^3/uL (0.0-0.1); Basophils % 0.4 %; Eosinophils # 0.3 10^3/uL (0.0-0.8); Eosinophils % 1.7 %; Hematocrit 40.3 % (37.0-47.0); Hemoglobin 13.1 g/dL (11.5-15.3); Lymphocytes % 13.6 %; Mean Corpuscular HGB Conc 32.5 g/dL (30.0-36.0); Mean Corpuscular Hemoglobin 27.6 pg (28.0-34.0); Mean Platelet Volume 10.7 fL (7.4-10.4); Monocytes # 0.8 10^3/uL (0.2-0.9); Monocytes % 5.5 %; Neutrophils # 11.77 10^3/uL (1.8-7.7); Neutrophils % 78.2 %; Nucleated Red Blood Cells % 0 %; Platelet Count 283 10^3/cmm (130-400); Red Blood Count 4.74 10^6/uL (4.1-5.3); Red Cell Distribution Width 13.1 % (12.1-15.1)
[2022-06-01] MEDS: albuterol 2.5 mg/3 mL Neb INHALATION (22:26)
[2022-06-01] MEDS: ipratropium 0.5 mg/2.5 mL Neb INHALATION (22:26)
[2022-06-01] MEDS: acetaminophen 325 mg Tablet 650 MG PO (22:30)
[2022-06-01 22:42] LABS: INR 0.99 (0.8-1.2)
[2022-06-01 22:44] LABS: D Dimer 0.74 ug/mIFEU (0-0.59); Influenza A by IFA negative (Negative); Influenza B by IFA negative (Negative); SARS Covid-2 Antigen negative (Negative)
[2022-06-01 22:53] LABS: Troponin(5th) Baseline 6 ng/L (0-10)
[2022-06-01 23:02] LABS: Alanine Aminotransferase 21 U/L (0-33); Albumin Level 3.7 g/dL (3.5-5.2); Alkaline Phosphatase 70 U/L (35-105); Anion Gap 16.5 (5-19); Aspartate Amino Transferase 20 U/L (0-32); Blood Urea Nitrogen 10 mg/dL (8-23); Calcium 9.5 mg/dL (8.5-10.5); Carbon Dioxide 25 mmol/L (22-29); Chloride 99 mmol/L (98-107); Creatinine Clr Calc Pharmacy 60.7018; Globulin 2.6 g/dL (1.3-4.6); Glomerular Filtration Rate 62.8 mL/min (90-130); Glucose 152 mg/dL (65-115); NT Pro B Type Natriuretic Pept 111 pg/mL (0-125); Osmolality Calculated 286 mOsm/kg (285-295); Potassium 3.5 mmol/L (3.5-5.1); Sodium 137 mmol/L (136-145); Total Bilirubin 0.4 mg/dL (0.15-1.2); Total Protein 6.3 g/dL (6.6-8.7)
[2022-06-01] MEDS: cefTRIAXone 1,000 MG in sodium chloride 0.9% (plus) 50 ML 100 MG IV (23:25)
--- NOTE | 2022-06-01 23:38 | CTR_ITS ---
PROCEDURE INFORMATION: Exam: CT Chest Without Contrast; Diagnostic Exam date and time: 06/02/2022 12:00 AM Age: 66 years old Clinical indication: Shortness of breath; Additional info: Copd/pna TECHNIQUE: Imaging protocol: Diagnostic computed tomography of the chest without contrast. Radiation optimization: All CT scans at this facility use at least one of these dose optimization techniques: automated exposure control; mA and/or kV adjustment per patient size (includes targeted exams where dose is matched to clinical indication); or iterative reconstruction. Other protocol: This patient has received [address] and 0 known cardiac nuclear medicine studies in the 12 months prior to the current study. COMPARISON: CT angio chest PE protcl [id number] 05/24/2021 12:04 AM RADIATION DOSE METRICS: Total DLP (mGy-cm): 473.81 FINDINGS: Lungs: There is a background of emphysema and bilateral basilar bronchiectasis. There are strandy opacity seen in the lung bases bilaterally that likely represents parenchymal or pleural scarring versus atelectasis. There is a 7.1 mm pulmonary nodularity seen in the right upper lobe medially. Pleural spaces: See Lungs finding. Heart: There is a tiny pericardial effusion seen anteriorly. Coronary arteries: Mild coronary artery calcifications are seen. Lymph nodes: There are calcified mediastinal and right hilar lymph nodes present. A 6.5 mm calcified pulmonary granulomas seen in the right upper lobe. Partially calcified granulomas are seen in the right lower lobe. Vasculature: Unremarkable. No aortic aneurysm. Gallbladder and bile ducts: Status post cholecystectomy. Bones/joints: Unremarkable. No acute fracture. Soft tissues: Unremarkable. CT/CT chest [facility] [id number] IMPRESSION: 1. Evidence of prior granulomatous exposure. 2. Noncalcified 7.1 mm pulmonary nodularity in the right upper lobe medially likely represents a benign noncalcified pulmonary granuloma. For patients at low risk (minimal or absent history of smoking and of other known risk factors), recommend CT Chest at 6-12 months, then consider CT Chest at 18-24 months. For patients at high risk (history of smoking or of other known risk factors), recommend CT Chest at 6-12 months, then CT Chest at 18-24 months. (Reference: Jonathan) 3. Background emphysema and bilateral basilar bronchiectasis . 4. Tiny pericardial effusion 5. Strandy opacities in the lung bases bilaterally likely represents parenchymal or pleural scarring versus atelectasis. COMMENTS: In the absence of a history or active diagnosis of lung cancer, it is recommended that this patient with emphysema be evaluated for enrollment in a low dose CT lung cancer screening program. REFERENCES: Jonathan Vang et al. Guidelines for Management of Incidental Pulmonary Nodules Detected on CT Images: From the Fleischner Society 2017. Radiology. 2017;284(1):228-243.
--- NOTE | 2022-06-01 23:40 | P.HP_ITS ---
Providers/Chief Complaint Admitting Physician: Fernando Benitez MD Primary Care Provider: Cooper Villa Chief Complaint: SOB History of Present Illness Katerine Moss is a 66 year old female with history of respiratory failure in setting COVID-19 last year, MRSA bacteremia, hypertension, sarcoidosis of lung, type 2 diabetes mellitus, tardive dyskinesia, depression presents to the ER today because of generalized weakness along with shortness of breath and cough ongoing for last 2 to 3 days. EMS found the patient down into mid 80s on room air requiring 3 L to maintain saturation over 90%. Patient is not on oxygen at his baseline. Symptoms started 4days ago and have been getting worse, a/w cough with mild expectoration, runny nose and nausea. Today SOB got worse so came to ER. SOB gets worse on minimal exertion for 1 day. Not present at rest or on talking. Subjective fevers. No sick contacts or travels. Review of Systems General: Reports: 10 or more systems reviewed and unremarkable except in HPI and below Const: Denies: fever(s), chills, body aches, change in appetite, change in weight, malaise, night sweats, diaphoresis, change in sleep pattern, daytime s leepiness or snoring Eyes: Denies: change in vision, blurry vision, photophobia, eye discomfort or eye discharge ENMT: Denies: throat pain, enlarged tonsils, hoarseness, mouth pain, oral sores, dry mouth, tinnitus, nasal congestion or post nasal drip Card: Denies: chest pain, palpitations, irregular heart rhythm, edema, swelling of feet/ankles, lightheadedness, syncope, pre-syncope, dyspnea on exertion, orthopnea, leg pain with exertion or acrocyanosis Resp: Denies: dyspnea, productive cough, non-productive cough, wheezing, stridor, pain on inspiration, change in phlegm color, hemoptysis or chest congestion GI: Denies: abdominal pain, nausea, vomiting, hematemesis, coffee ground emesis, dysphagia, heartburn, diarrhea, constipation, bloating, GI cramping, change in bowel habits, pain on defecation, hematochezia or melena : Denies: flank pain, dysuria, urinary frequency, urinary urgency, urinary hesitancy, nocturia or hematuria Musc: Denies: neck pain, back pain, extremity pain, joint pain, joint swelling, joint redness, joint stiffness or limited range of motion Neuro: Denies: headache(s), numbness in extremities, weakness in extremities, sensory changes, lack of coordination, difficulty walking, frequent falls, dizziness, vertigo, confusion, Slurred speech present, difficulty communicating thoughts or seizure-like activity Psych: Denies: anxiety, depression, mood swings, panic attacks, hopelessness or irritability Endo: Denies: polyuria, polydipsia, tired all the time, cold intolerance, excessive sweating, flushing or heat intolerance Joe/Lymph: Denies: easy bruising or easy bleeding All/Imm: Denies: tongue swelling, facial swelling or acute wheezing Medications/Allergies Home Medications Medication Instructions Recorded Confirmed Last Taken Type albuterol sulfate 2.5 mg/3 mL 2.5 mg inhalation Q4H PRN 05/24/21 01/02/22 Unknown History (0.083 %) solution for nebulization Shortness Of Breath albuterol sulfate 90 mcg/actuation 2 puff inhalation Q4H PRN 05/24/21 01/02/22 01/01/22 History aerosol inhaler (ProAir HFA) Shortness Of Breath aspirin 81 mg tablet,delayed 81 mg PO DAILY 05/24/21 01/02/22 01/01/22 08:00 History release atorvastatin 40 mg tablet 40 mg PO DAILY 05/24/21 01/02/22 01/01/22 08:00 History bupropion HCl 150 mg tablet,12 hr 150 mg PO BID 05/24/21 01/02/22 01/01/22 08:00 History sustained-release (Wellbutrin SR) donepezil 5 mg tablet 5 mg PO BEDTIME 05/24/21 01/02/22 12/31/21 21:00 History omeprazole 40 mg capsule,delayed 40 mg PO DAILY 05/24/21 01/02/22 01/01/22 08:00 History release sertraline 25 mg tablet 25 mg PO DAILY 05/24/21 01/02/22 01/01/22 08:00 History insulin lispro 100 unit/mL See Rx Instructions .Route 05/31/21 01/02/22 01/01/22 Rx subcutaneous solution (Humalog .COMPLEX #10 mL U-100 Insulin) gabapentin 300 mg capsule See Rx Instructions .Route .COMPLEX 01/02/22 01/02/22 01/01/22 08:00 History metoclopramide HCl 10 mg tablet 10 mg PO PRN PRN Nausea 01/02/22 01/02/22 01/01/22 08:00 History oxybutynin chloride 5 mg tablet 5 mg PO DAILY 01/02/22 01/02/22 01/01/22 08:00 History trazodone 300 mg tablet 300 mg PO BEDTIME 01/02/22 01/02/22 12/31/21 21:00 History Allergies Allergy/AdvReac Type Severity Reaction Status Date / Time Penicillins Allergy ALGY-Rash Verified 05/24/21 15:16 PFSH Acute PFSH: Medical History (Updated 06/01/22 @ 23:42 by Fernando Benitez MD) Acute encephalopathy Depression HLD (hyperlipidemia) HTN (hypertension) with goal to be determined Peptic ulcer disease Pneumonia due to COVID-19 virus Sarcoidosis of lung Staphylococcus aureus bacteremia with sepsis Tardive dyskinesia Type 2 diabetes mellitus Urinary tract infection Surgical History History of cholecystectomy Knee joint replacement status Family History Mother Diabetes CHF (congestive heart failure) Social History Smoking and tobacco status: former smoker Alcohol intake: never Vitals/I&O/Wt Last Vital Signs Temp 99.0 F 06/01/22 22:11 Pulse 767 H 06/01/22 22:26 Resp 14 06/01/22 22:26 BP 119/81 06/01/22 22:11 Pulse Ox 94 06/01/22 22:26 O2 Del Method 06/01/22 22:26 O2 Flow Rate 2 06/01/22 22:26 Weight last 48 hrs Weight 82.554 kg Physical Exam Narrative: EXAM NARRATIVE: General: No acute distress, AO x3, NC oxygen supplementation HEENT: PERRLA, pupils bilaterally equal and reactive Chest: Bilateral bronchial breath sounds with occasional rhonchi over the lung f ields and coarse crackles right more than left CVS: S1-S2 regular, no murmurs, no tachycardia, no gallops, no rubs Abdomen: Soft, nontender, no organomegaly, bowel sounds present, morbidly obese Neuro: No focal deficits, no facial deformity, AO x3, power 5/5 in all limbs Data 06/01/22 22:18 06/01/22 22:18 Micro: Microbiology 06/01/22 22:40 Blood Culture - Preliminary Blood SPECIMEN COLLECTED 06/01/22 22:55 Blood Culture - Preliminary Blood SPECIMEN COLLECTED A&P Assessment and plan (1) Community acquired pneumonia: (2) Sarcoidosis of lung: (3) Type 2 diabetes mellitus: Plan 66-year-old female with past medical history of respiratory failure in setting of COVID-19 pneumonia, sarcoidosis and MRSA bacteremia presented with shortness of breath and weakness ongoing for 2 to 3 days found to have pneumonia on chest x-ray. Community-acquired pneumonia: Check blood culture, sputum culture, urine Legionella bacterial antigen, proc alcitonin. Patient has history of MRSA positive. Check CT chest without contrast. D-dimer?0.76. PE less likely. Started on azithromycin, IV ceftriaxone, IV vancomycin. Will de-escalate antibiotics as per culture results. Keep oxygen saturation over 88%. Wean oxygen accordingly. Tessalon pearls, robitussin as needed. DuoNebs every 6 hour, budesonide twice daily. No acute exacerbation of COPD or sarcoidosis currently. Hold off on IV steroids. To start if patient requiring higher oxygen. Type 2 diabetes mellitus: Check A1c. Insulin sliding scale low-dose protocol before meals and at bedtime. Continue other chronic medications including sertraline, trazodone, gabapentin, Wellbutrin. Full code. Carb consistent diet. Lovenox 40 mg SQ daily for DVT prophylaxis. Protonix for PUD prophylaxis. Attestations Medical Necessity Statement*: Admission for more than 2 midnights for management of hypoxia in setting of community-acquired pneumonia requiring oxygen supplementation with history of MRSA bacteremia, sarcoidosis and respiratory failure and High Time for a total of 60 minutes, includes reviewing past or interval history, examining/interviewing patient, placing orders, counseling patient/family/other support, updating patient/family/other support, discussing plan of care with staff, communicating with other healthcare providers, documenting encounter and coordinating care Diagnoses Community acquired pneumonia J18.9 Sarcoidosis of lung D86.0 Type 2 diabetes mellitus E11.9
[2022-06-01 23:50] VITALS: BP 149/81; PULSE 74; RESP 17; O2SAT 95
[2022-06-01] MEDS: azithromycin 500 MG in sodium chloride 0.9% 250 ML 250 MG IV (23:58)
[2022-06-02] VITALS (15 sets, daily range): BP systolic 100–141; BP diastolic 66–79; PULSE 73–92; RESP 16–18; TEMP 36.4–36.8; O2SAT 90–97
[2022-06-02 00:11] LABS: Thyroid Stimulating Hormone 0.99 uIU/mL (0.27-4.20)
[2022-06-02 00:20] LABS: Procalcitonin 0.09 ng/mL (0-0.5); Vitamin B12 819 pg/mL (232-1245)
[2022-06-02 00:30] LABS: Iron 25 ug/dL (37-145); Total Iron Binding Capacity 248 mcg/dl; Unsaturated Iron Binding 223 ug/dL (112-347)
--- NOTE | 2022-06-02 00:41 | ECG_ITS ---
[facility] Test Date: 2022-06-02 Pat Name: Kaetrine Moss Department: Room: 251 Gender: Female Research Librarian: : 1955 Requested By: Sreekanth Norton Order Number: [id number] Mayelin MD: David Winn M.D. Measurements Intervals [place] Rate: 79 P: 48 WY: 227 QRS: -60 QRSD: 100 T: 62 QT: 425 QTc: 488 Interpretive Statements SINUS RHYTHM WITH FIRST DEGREE AV BLOCK LOW QRS VOLTAGE IN PRECORDIAL LEADS [QRS DEFLECTION < 1.0 mV IN CHEST LEADS] INFERIOR MYOCARDIAL INFARCTION , OF INDETERMINATE AGE [40+ ms Q WAVE AND/OR ST/T ABNORMALITY IN II/aVF] ANTEROLATERAL MYOCARDIAL INFARCTION , OF INDETERMINATE AGE [40+ ms Q WAVE IN I/aVL/V3-V6] Compared to ECG 06/01/2022 22:25:45 No significant changes Electronically Signed On 06-02-2022 19:15:15 PRACTICING UROLOGIST by David Winn M.D. [id number]
[2022-06-02] MEDS: enoxaparin 40 mg/0.4 mL Syringe SUBCUT ×2 (00:53→23:18)
[2022-06-02] MEDS: ipratropium-albuterol 3 mL Neb INHALATION (03:11)
[2022-06-02 03:27] LABS: Troponin 5 2HR Delta 0 ABS# (0-10)
--- NOTE | 2022-06-02 03:50 | ECG_ITS ---
[facility] Test Date: 2022-06-02 Pat Name: Katerine Moss Department: Room: 251 Gender: Female Knuckler: : 1955 Requested By: Sreekanth Norton Order Number: [id number] Mayelin MD: David Winn M.D. Measurements Intervals [place] Rate: 79 P: 56 UT: 221 QRS: -76 QRSD: 102 T: 67 QT: 411 QTc: 473 Interpretive Statements SINUS RHYTHM WITH FIRST DEGREE AV BLOCK LOW QRS VOLTAGE IN PRECORDIAL LEADS [QRS DEFLECTION < 1.0 mV IN CHEST LEADS] ANTERIOR MYOCARDIAL INFARCTION , OF INDETERMINATE AGE [40+ ms Q WAVE AND/OR ST/T ABNORMALITY IN V3/V4] INFERIOR MYOCARDIAL INFARCTION , PROBABLY OLD [40+ ms Q WAVE AND/OR ST/T ABNORMALITY IN II/aVF] Compared to ECG 06/02/2022 00:41:12 No significant changes Electronically Signed On 06-02-2022 19:16:18 PATIENT RELATIONS SPECIALIST by David Winn M.D. [id number]
[2022-06-02 04:14] LABS: Adenovirus Not Detected (NOT DETECT); Chlamydia Pneumoniae Not Detected (NOT DETECT); Coronavirus 229E,HKU1,NL63,OC4 Not Detected (NOT DETECT); Human Metapneumovirus Not Detected (NOT DETECT); Human Rhinovirus/Enterovirus Not Detected (NOT DETECT); Influenza A Not Detected (NOT DETECT); Influenza A H1 Not Detected (NOT DETECT); Influenza A H1-2009 Not Detected (NOT DETECT); Influenza A H3 Not Detected (NOT DETECT); Influenza B Not Detected (NOT DETECT); Mycoplasma Pneumoniae Not Detected (NOT DETECT); Parainfluenza Virus Type 1 Not Detected (NOT DETECT); Parainfluenza Virus Type 2 Not Detected (NOT DETECT); Parainfluenza Virus Type 3 Not Detected (NOT DETECT); Parainfluenza Virus Type 4 Not Detected (NOT DETECT); Respiratory Syncytial Virus A Not Detected (NOT DETECT); Respiratory Syncytial Virus B Not Detected (NOT DETECT); SARS-COV-2 Not Detected (NOT DETECT)
--- NOTE | 2022-06-02 05:12 | PC.NURSE ---
Patient was incontinent while sleeping. Nurse and CONTRACT LAW SPECIALIST changed patient. While changing and providing thaddeus care nurse noticed red excoriated skin in groin, sacrum, and underneath the umbilicus. Skin was cleaned, dried, and barrier cream applied. Patient was in poor hygiene upon assessment.
[2022-06-02 07:08] LABS: Basophils % 0.2 %; Eosinophils % 0.1 %; Hematocrit 40.4 % (37.0-47.0); Hemoglobin 13.1 g/dL (11.5-15.3); Lymphocytes # 0.9 10^3/uL (0.8-4.8); Lymphocytes % 8.2 %; Mean Corpuscular HGB Conc 32.4 g/dL (30.0-36.0); Mean Corpuscular Hemoglobin 27.7 pg (28.0-34.0); Mean Corpuscular Volume 85.4 fl (81-99); Mean Platelet Volume 10.9 fL (7.4-10.4); Monocytes # 0.1 10^3/uL (0.2-0.9); Monocytes % 0.7 %; Neutrophils # 9.27 10^3/uL (1.8-7.7); Neutrophils % 89.6 %; Nucleated Red Blood Cells % 0 %; Platelet Count 266 10^3/cmm (130-400); Red Blood Count 4.73 10^6/uL (4.1-5.3); Red Cell Distribution Width 13.2 % (12.1-15.1); White Blood Count 10.3 10^3/uL (4.0-10.0)
[2022-06-02 07:26] LABS: Chol HDL Ratio 3.04 mg/dL (0.0-4.40); Cholesterol 140 mg/dL (0-200); HDL Cholesterol 46 mg/dL (60-100); LDL Cholesterol Calculated 69 mg/dL (50-129); Triglycerides 127 mg/dL (0-150); VLDL Cholestrol Calculation 25 mg/dL (0-30)
[2022-06-02 07:28] LABS: Alanine Aminotransferase 19 U/L (0-33); Albumin Level 3.5 g/dL (3.5-5.2); Alkaline Phosphatase 69 U/L (35-105); Aspartate Amino Transferase 18 U/L (0-32); Blood Urea Nitrogen 10 mg/dL (8-23); Calcium 9.2 mg/dL (8.5-10.5); Carbon Dioxide 23 mmol/L (22-29); Chloride 101 mmol/L (98-107); Globulin 3.1 g/dL (1.3-4.6); Glomerular Filtration Rate 62.8 mL/min (90-130); Glucose 283 mg/dL (65-115); Magnesium 1.5 mg/dL (1.7-2.3); Osmolality Calculated 293 mOsm/kg (285-295); Phosphorus 2.6 mg/dL (2.5-4.5); Sodium 137 mmol/L (136-145); Total Bilirubin 0.3 mg/dL (0.15-1.2); Total Protein 6.6 g/dL (6.6-8.7)
[2022-06-02 07:41] LABS: Glucose Point of Care 248 mg/dL (70-110)
[2022-06-02 07:45] LABS: Troponin 5 6HR Delta 0 ng/L (0-12)
[2022-06-02] MEDS: ipratropium 0.5 mg/2.5 mL Neb INHALATION ×3 (07:50→19:50)
[2022-06-02 08:00] LABS: Estmated Average Glucose 180; Hemoglobin A1C 7.9 % (4.0-6.0)
[2022-06-02] MEDS: budesonide 0.5 mg/2 mL Neb INHALATION ×2 (08:01→19:50)
[2022-06-02] MEDS: sertraline 50 mg Tablet 25 MG PO (08:52)
[2022-06-02] MEDS: azithromycin 250 mg Tablet 500 MG PO (08:52)
[2022-06-02] MEDS: atorvastatin 40 mg Tablet PO (08:52)
[2022-06-02] MEDS: docusate sodium 100 mg Capsule PO ×2 (08:52→17:26)
[2022-06-02] MEDS: aspirin 81 mg EC Tablet PO (08:52)
[2022-06-02] MEDS: pantoprazole DR 40 mg Tablet PO (08:52)
[2022-06-02] MEDS: benzonatate 100 mg Capsule PO ×3 (08:52→22:24)
[2022-06-02] MEDS: buPROPion SR (12 HR) 150 mg Tablet PO ×2 (08:52→17:26)
[2022-06-02] MEDS: oxybutynin 5 mg Tablet PO (08:52)
[2022-06-02] MEDS: insulin lispro 100 unit/1 mL SUBCUT ×4 (08:57→22:25)
[2022-06-02] MEDS: ferrous gluconate 324 mg Tablet PO ×2 (08:57→17:26)
[2022-06-02] MEDS: gabapentin 300 mg Capsule PO ×2 (09:23→16:02)
--- NOTE | 2022-06-02 10:01 | PC.CHAP ---
Pastoral Care Encounter/Spiritual Assessment Type of Contact [] Declined inspector shells visit [] Patient/Family/Request visit [] Outpatient visit [] Follow-up visit [] Physician referral [] Code/Alert [x] Routine visit [] Staff referral [] Actively dying [] Patient sleeping [] Family support [] [] Out of room [] Palliative care [] [] Receiving care in room [] Pre-surgical visit [] Trauma [] Long length of stay [] ICU visit [] Other: Relational/Emotional Strength [x] Patient feels connected with others/family/visitors/staff [] Distress [] Loneliness/isolation [] Abandonment Spirituality of Patient [x] Person of Carlie [] Attends Buddhist of their Carlie [x] Believes in Prayer [] Reads Bible or Islam materials [] There are Spiritual issues to be addressed Teaching Pastor Interventions [x] Prayer [x] Active listening [x] Non-anxious presence [] Spiritual/emotional support [] Crisis/trauma care [] Spiritual counseling [] Bereavement support [] Provided bereavement packet [] Provided Bible/devotional materials [] Provided toy/stuffed animal, coloring book to patient or family member [] Provided Communion [] Anointing/[place] [] Salvation [x] Completed spiritual assessment [] Other: Impact on Illness or Injury [] Angry [] Fearful [] Anxious [] Often cries [] Exhaustion [] Unable to work [] Unable to attend restoration [] Unable to walk/stand [] Unable to read [] Unable to drive [] Unable to eat/drink [] Unable to sleep [] Unable to be with family [] Patient intubated [] Other: Summary Time spent with patient 10 min
[2022-06-02 10:40] LABS: Folate Level > 20.0 ng/mL (4.8-37.3)
--- NOTE | 2022-06-02 10:59 | P.PN_ITS ---
Subjective Subjective: Patient is not taking any medication for sarcoidosis Patient is stating that since her stroke 2 years ago she has been experiencing slurred speech and difficulty walking She has been feeling lethargic and fatigued for last 1 month She does not see any welding machine operator gas Vitals/I&O/Wt Last Vital Signs Temp 97.5 F L 06/02/22 07:32 Pulse 82 06/02/22 07:59 Resp 18 06/02/22 07:50 BP 113/74 06/02/22 07:32 Pulse Ox 96 06/02/22 07:50 O2 Del Method 06/02/22 07:50 O2 Flow Rate 2 06/02/22 07:50 06/01/22 06/02/22 06/02/22 22:59 06:59 14:59 Intake Total 300 / 300 300 / 300 Balance 300 / 300 300 / 300 Weight last 48 hrs Weight 82.554 kg Physical Exam Narrative: Patient is awake and alert Lethargic and fatigued Mild slurring of speech while communicating with me Nonfocal neuro exam Looks euvolemic to dehydrated Abdomen soft No audible stridor or wheezing S1, S2 Patient has proximal muscle weakness of her extremities Data 06/02/22 06:32 06/02/22 06:32 Micro: Microbiology 06/01/22 22:40 Blood Culture - Preliminary Blood SPECIMEN COLLECTED 06/01/22 22:55 Blood Culture - Preliminary Blood SPECIMEN COLLECTED A&P Assessment and plan (1) Type 2 diabetes mellitus: (2) Sarcoidosis of lung: (3) Community acquired pneumonia: (4) Acute respiratory failure with hypoxia: Plan Acute hypoxia related to pneumonia Underlying COPD bronchiectasis and sarcoidosis Afebrile White count 10.3 We will add steroids because of history of sarcoidosis Patient also seems to have proximal muscle weakness Continue ceftriaxone azithromycin for now No signs of sepsis Request PT evaluation Normal B12 and TSH Generalized and fatigue related to gradual decline in her health with underlying sarcoidosis She will also need pulmonary follow-up at the time of discharge Patient lives with her She might need rehab depending on her density of weakness and fatigue Iron-deficiency anemia started iron supplement Hypomagnesemia: Repleted Community-acquired pneumonia without encephalopathy No sepsis We will follow-up with cultures Continue antibiotics Wean oxygen to room air if possible Residual deficit of mild slurring of speech and difficulty walking from previous CVA that was roughly 2 years ago Currently no active focal deficit noted Attestations Medical Necessity Statement*: Might need rehab and Moderate Time for a total of 40 minutes, includes reviewing past or interval history, examining/interviewing patient, placing orders, counseling patient/family/other support, updating patient/family/other support, discussing plan of care with staff, communicating with other healthcare providers, documenting encounter and coordinating care Diagnoses Type 2 diabetes mellitus E11.9 Sarcoidosis of lung D86.0 Community acquired pneumonia J18.9 Acute respiratory failure with hypoxia J96.01
[2022-06-02 11:18] LABS: Glucose Point of Care 304 mg/dL (70-110)
[2022-06-02 14:38] LABS: Add Urine Microscopic? NO; Charge for UA Resulting for Rev
[2022-06-02 15:10] LABS: Bilirubin Urine Neg (Negative); Blood Urine Neg (Negative); Glucose Urine UA 4+ (Normal); Ketones Urine 1+ (Negative); Leukocyte Esterase Urine Negative (Negative); Nitrate Urine Negative (Negative); Protein Urine Neg (Negative); Specific Gravity, Urine 1.015 (1.005-1.030); Urine Appearance Clear (CLEAR); Urine Color Dark Yellow (Yellow); Urobilinogen Urine Norm (Negative); pH Urine 5 (5-7)
[2022-06-02 16:28] LABS: Glucose Point of Care 257 mg/dL (70-110)
[2022-06-02] MEDS: albuterol 2.5 mg/3 mL Neb INHALATION (19:50)
[2022-06-02 21:36] LABS: Glucose Point of Care 156 mg/dL (70-110)
[2022-06-02] MEDS: donepezil 5 MG Tablet PO (22:24)
[2022-06-02] MEDS: sennosides 8.6 mg Tablet 17.2 MG PO (22:24)
[2022-06-02] MEDS: cefTRIAXone 1,000 MG in sodium chloride 0.9% (plus) 50 ML 100 MG IV (23:18)
[2022-06-02] MEDS: trazodone 150 mg Tablet 300 MG PO (23:18)
[2022-06-03] VITALS (14 sets, daily range): BP systolic 105–135; BP diastolic 65–88; PULSE 72–88; RESP 15–19; TEMP 36.4–36.8; O2SAT 91–98
[2022-06-03 04:27] LABS: Blood Urea Nitrogen 13 mg/dL (8-23); Calcium 9.1 mg/dL (8.5-10.5); Carbon Dioxide 25 mmol/L (22-29); Chloride 103 mmol/L (98-107); Glomerular Filtration Rate 62.8 mL/min (90-130); Glucose 199 mg/dL (65-115); Osmolality Calculated 292 mOsm/kg (285-295); Sodium 138 mmol/L (136-145)
[2022-06-03 04:33] LABS: Anion Gap 14.2 (5-19); Potassium 4.2 mmol/L (3.5-5.1)
--- NOTE | 2022-06-03 06:27 | PM.PN ---
Subjective Subjective: No fever overnight Stable leukocytosis Patient to work with PT Currently requiring 2 L of oxygen Blood pressure 105/65 Cultures negative to date Hypomagnesemia noted magnesium 1.5 Hemoglobin A1c 7.9 Vitals/I&O/Wt Last Vital Signs Temp 97.8 F 06/03/22 04:00 Pulse 82 06/03/22 06:00 Resp 16 06/03/22 04:00 BP 105/65 06/03/22 04:00 Pulse Ox 92 06/03/22 04:00 O2 Del Method 06/02/22 19:50 O2 Flow Rate 2 06/02/22 19:50 06/02/22 06/02/22 06/03/22 14:59 22:59 06:59 Intake Total 472 / 472 840 / 1312 50 / 1362 Balance 472 / 472 840 / 1312 50 / 1362 Weight last 48 hrs Weight 86.319 kg Weight 82.554 kg Physical Exam Narrative: Fatigued and lethargic Currently on 2 L S1, S2 Mild rhonchi on lung auscultation Abdomen distended nontender Lower extremity no edema Pleasant and cooperative Able to follow commands Slight slurring of speech and lower extremity weakness from previous stroke Data 06/02/22 06:32 06/03/22 03:51 Micro: Microbiology 06/01/22 22:40 Blood Culture - Preliminary Blood NEGATIVE TO DATE 06/01/22 22:55 Blood Culture - Preliminary Blood NEGATIVE TO DATE 06/02/22 13:58 Legionella Urinary Antigen - Final Urine,Voided 06/02/22 13:58 Bacterial Antigens - Final Urine Kidney A&P Assessment and plan (1) Type 2 diabetes mellitus: (2) Sarcoidosis of lung: (3) Community acquired pneumonia: (4) Acute respiratory failure with hypoxia: (5) Generalized weakness: Plan Acute hypoxia related to community-acquired pneumonia History of bronchiectasis Continue antibiotics Afebrile No worsening leukocytosis Cultures negative At risk of recurrent infections We will give her referral to see Dr. Haider outpatient Generalized weakness and fatigue Hypomagnesemia: Repleted Related to worsening of diabetes, chronic comorbid conditions and diabetes myopathy Tardive dyskinesia history, mild slurring of speech, lower extremity weakness patient had a CVA 2 years ago Recommending home excise program, will discharge tomorrow updated Full code Consistent carb diet Attestations Medical Necessity Statement*: Continue medical management Coding Level of Care Code 81573 Diagnoses Type 2 diabetes mellitus E11.9 Sarcoidosis of lung D86.0 Community acquired pneumonia J18.9 Acute respiratory failure with hypoxia J96.01 Generalized weakness R53.1
[2022-06-03 06:36] LABS: Glucose Point of Care 153 mg/dL (70-110)
[2022-06-03 06:39] LABS: Basophils # 0.1 10^3/uL (0.0-0.1); Basophils % 0.4 %; Eosinophils # 0.2 10^3/uL (0.0-0.8); Hematocrit 39.2 % (37.0-47.0); Hemoglobin 12.4 g/dL (11.5-15.3); Lymphocytes # 3.9 10^3/uL (0.8-4.8); Lymphocytes % 23.5 %; Mean Corpuscular HGB Conc 31.6 g/dL (30.0-36.0); Mean Corpuscular Hemoglobin 27.3 pg (28.0-34.0); Mean Corpuscular Volume 86.3 fl (81-99); Mean Platelet Volume 10.7 fL (7.4-10.4); Monocytes % 5.7 %; Neutrophils # 11.49 10^3/uL (1.8-7.7); Neutrophils % 68.7 %; Nucleated Red Blood Cells % 0 %; Platelet Count 305 10^3/cmm (130-400); Red Blood Count 4.54 10^6/uL (4.1-5.3); Red Cell Distribution Width 13.2 % (12.1-15.1); White Blood Count 16.7 10^3/uL (4.0-10.0)
[2022-06-03] MEDS: albuterol 2.5 mg/3 mL Neb INHALATION ×3 (07:48→21:30)
[2022-06-03] MEDS: ipratropium 0.5 mg/2.5 mL Neb INHALATION ×3 (07:48→21:29)
[2022-06-03] MEDS: budesonide 0.5 mg/2 mL Neb INHALATION ×2 (07:48→21:29)
[2022-06-03] MEDS: ferrous gluconate 324 mg Tablet PO ×2 (08:25→17:48)
[2022-06-03] MEDS: docusate sodium 100 mg Capsule PO ×2 (08:25→17:48)
[2022-06-03] MEDS: insulin lispro 100 unit/1 mL SUBCUT ×3 (09:24→17:47)
[2022-06-03] MEDS: gabapentin 300 mg Capsule PO ×2 (09:29→15:19)
[2022-06-03] MEDS: pantoprazole DR 40 mg Tablet PO (09:49)
[2022-06-03] MEDS: buPROPion SR (12 HR) 150 mg Tablet PO ×2 (09:49→17:48)
[2022-06-03] MEDS: azithromycin 250 mg Tablet 500 MG PO (09:49)
[2022-06-03] MEDS: oxybutynin 5 mg Tablet PO (09:49)
[2022-06-03] MEDS: aspirin 81 mg EC Tablet PO (09:50)
[2022-06-03] MEDS: benzonatate 100 mg Capsule PO ×3 (09:50→21:47)
[2022-06-03 11:42] LABS: Glucose Point of Care 204 mg/dL (70-110)
[2022-06-03 17:30] LABS: Glucose Point of Care 211 mg/dL (70-110)
[2022-06-03] MEDS: donepezil 5 MG Tablet PO (21:47)
[2022-06-03] MEDS: sennosides 8.6 mg Tablet 17.2 MG PO (21:47)
[2022-06-03] MEDS: trazodone 150 mg Tablet 300 MG PO (21:47)
[2022-06-03 22:04] LABS: Glucose Point of Care 134 mg/dL (70-110)
[2022-06-03] MEDS: cefTRIAXone 1,000 MG in sodium chloride 0.9% (plus) 50 ML 100 MG IV (23:16)
[2022-06-03] MEDS: enoxaparin 40 mg/0.4 mL Syringe SUBCUT (23:19)
[2022-06-04] VITALS (8 sets, daily range): BP systolic 117–120; BP diastolic 76–78; PULSE 72–80; RESP 16–18; TEMP 36.6–37; O2SAT 92–98
[2022-06-04] MEDS: albuterol 2.5 mg/3 mL Neb INHALATION ×2 (03:08→07:33)
[2022-06-04] MEDS: ipratropium 0.5 mg/2.5 mL Neb INHALATION ×2 (03:08→07:33)
[2022-06-04 06:59] LABS: Glucose Point of Care 141 mg/dL (70-110)
[2022-06-04] MEDS: budesonide 0.5 mg/2 mL Neb INHALATION (07:33)
--- NOTE | 2022-06-04 08:24 | PM.DCS ---
Discharge Providers Date of Admission: 06/01/22 23:21 Date of Discharge: June 04, 2022 Attending Provider at Admission: Fernando Benitez MD Attending Provider at Discharge: Lacy Acuna MD Primary Care Provider: Cooper Villa Diagnoses at Discharge Discharge Diagnosis (1) Type 2 diabetes mellitus: Status: Acute (2) Sarcoidosis of lung: Status: Acute (3) Community acquired pneumonia: Status: Acute (4) Acute respiratory failure with hypoxia: Status: Acute (5) Generalized weakness: Status: Acute Reason for Visit Reason for Visit: SOB Hospital Course Hospital Course 66-year female who suffered from a CVA 2 years ago residual slurred speech and lower extremity weakness, tardive dyskinesia, presented with generalized weakness & a fall at home she was diagnosed with community-acquired pneumonia, CT scan lung consistent with COPD and bronchiectasis, she was covered with ceftriaxone and azithromycin, remained afebrile, patient was very lethargic to the point she was not able to get up on day 1 however in next 48 hours she started becoming better and did very well with physical therapy, physical therapy, and home excise program son was very concerned that she might need rehab because of her recurrent weakness whenever she gets sick, at the time of discharge I will give referral to see a business area manager and get outpatient physical therapy, counseling case manager updated, her insurance will be able to cover her outpatient physical therapy as well. Son in agreement for now. I have added trilogy, give her levofloxacin, cultures negative to date, Medrol pack sounds work at one of the [facility] outpatient clinic name is [place] work phone [phone] [id number] She was requiring 2 L of oxygen initially but we were able to wean off successfully to room air. I will request home oxygen evaluation before discharge Physical Exam Narrative: She is sitting in a chair On room air Awake and alert Abdomen soft Energy and fatigue improved Abdomen soft Nonfocal neuro exam Tardive dyskinesia Discharge Data Studies Completed and Pending Completed Studies During Hospitalization Category Date Time Status CT chest wo con [id number] Urgent Cat Scan 06/01/22 23:38 Completed XR chest 1V portable [id number] Stat Exams 06/01/22 22:13 Completed Pending at discharge Category Date Time Status Blood Culture Stat Lab 06/01/22 22:40 Results Complete Blood Count w/Auto AM LABS Lab 06/04/22 04:00 Ordered Sputum Culture and Gram Stain Stat Lab 06/01/22 23:38 Uncollected Radiology Impressions Chest X-Ray 06/01/22 22:13 IMPRESSION: Increased densities in the retrocardiac region may represent atelectasis although left basilar infiltrate and pneumonia cannot be excluded. Chest CT 06/01/22 23:38 IMPRESSION: 1. Evidence of prior granulomatous exposure. 2. Noncalcified 7.1 mm pulmonary nodularity in the right upper lobe medially likely represents a benign noncalcified pulmonary granuloma. For patients at low risk (minimal or absent history of smoking and of other known risk factors), recommend CT Chest at 6-12 months, then consider CT Chest at 18-24 months. For patients at high risk (history of smoking or of other known risk factors), recommend CT Chest at 6-12 months, then CT Chest at 18-24 months. (Reference: Jonathan) 3. Background emphysema and bilateral basilar bronchiectasis . 4. Tiny pericardial effusion 5. Strandy opacities in the lung bases bilaterally likely represents parenchymal or pleural scarring versus atelectasis. COMMENTS: In the absence of a history or active diagnosis of lung cancer, it is recommended that this patient with emphysema be evaluated for enrollment in a low dose CT lung cancer screening program. REFERENCES: Jonathan Vang, et al. Guidelines for Management of Incidental Pulmonary Nodules Detected on CT Images: From the Fleischner Society 2017. Radiology. 2017;284(1):228-243. Laboratory Results WBC 16.7 10^3/uL (4.0-10.0) H 06/03/22 06:25 Corrected WBC Cancelled 06/03/22 03:51 RBC 4.54 10^6/uL (4.1-5.3) 06/03/22 06:25 Hgb 12.4 g/dL (11.5-15.3) 06/03/22 06:25 Hct 39.2 % (37.0-47.0) 06/03/22 06:25 MCV 86.3 fl (81-99) 06/03/22 06:25 MCH 27.3 pg (28.0-34.0) L 06/03/22 06:25 MCHC 31.6 g/dL (30.0-36.0) 06/03/22 06:25 RDW 13.2 % (12.1-15.1) 06/03/22 06:25 Plt Count 305 10^3/cmm (130-400) 06/03/22 06:25 MPV 10.7 fL (7.4-10.4) H 06/03/22 06:25 Gran % Cancelled 06/03/22 03:51 Neut % (Auto) 68.7 % 06/03/22 06:25 Lymph % (Auto) 23.5 % 06/03/22 06:25 [place] % (Auto) 5.7 % 06/03/22 06:25 Eos % (Auto) 1.0 % 06/03/22 06:25 Baso % (Auto) 0.4 % 06/03/22 06:25 Neut # (Auto) 11.49 10^3/uL (1.8-7.7) H 06/03/22 06:25 Lymph # (Auto) 3.9 10^3/uL (0.8-4.8) 06/03/22 06:25 [place] # (Auto) 1.0 10^3/uL (0.2-0.9) H 06/03/22 06:25 Eos # (Auto) 0.2 10^3/uL (0.0-0.8) 06/03/22 06:25 Baso # (Auto) 0.1 10^3/uL (0.0-0.1) 06/03/22 06:25 Absolute Gran (auto) Cancelled 06/03/22 03:51 Nucleated RBC % (auto) 0 % 06/03/22 06:25 Nucleated RBCs # 0.0 /100WBC 06/03/22 06:25 PT 13.40 SECONDS (12.1-14.9) 06/01/22 22:18 INR 0.99 (0.8-1.2) 06/01/22 22:18 D-Dimer 0.74 ug/mIFEU (0-0.59) H 06/01/22 22:18 Specimen Type Cancelled 06/01/22 10:22 Sample Site Cancelled 06/01/22 10:22 O2 Sat Pulse Oximetry Cancelled 06/01/22 10:22 ABG pH Cancelled 06/01/22 10:22 ABG pCO2 Cancelled 06/01/22 10:22 ABG pO2 Cancelled 06/01/22 10:22 ABG HCO3 Cancelled 06/01/22 10:22 ABG Base Excess Cancelled 06/01/22 10:22 Liban Test Cancelled 06/01/22 10:22 Hematocrit Cancelled 06/01/22 10:22 Hgb O2 Saturation Cancelled 06/01/22 10:22 Carboxyhemoglobin Cancelled 06/01/22 10:22 Methemoglobin Cancelled 06/01/22 10:22 Total Hemoglobin Cancelled 06/01/22 10:22 Respiration Rate Cancelled 06/01/22 10:22 O2 Delivery Device Cancelled 06/01/22 10:22 O2 Liters/Min Cancelled 06/01/22 10:22 SIMV Cancelled 06/01/22 10:22 Vent Mode Cancelled 06/01/22 10:22 Mechanical Rate Cancelled 06/01/22 10:22 Spontaneous Rate Cancelled 06/01/22 10:22 FiO2 Cancelled 06/01/22 10:22 Tidal Volume Cancelled 06/01/22 10:22 PEEP Cancelled 06/01/22 10:22 Pressure Support Cancelled 06/01/22 10:22 Pressure Control Cancelled 06/01/22 10:22 CPAP Cancelled 06/01/22 10:22 Mode BiPAP Cancelled 06/01/22 10:22 Specimen Drawn By Cancelled 06/01/22 10:22 Biomass Production Manager ID Cancelled 06/01/22 10:22 Crit Value Read Back Cancelled 06/01/22 10:22 Blood Gas Notified Time Cancelled 06/01/22 10:22 Sodium 138 mmol/L (136-145) 06/03/22 03:51 Potassium 4.2 mmol/L (3.5-5.1) 06/03/22 03:51 Chloride 103 mmol/L (98-107) 06/03/22 03:51 Carbon Dioxide 25 mmol/L (22-29) 06/03/22 03:51 Anion Gap 14.2 (5-19) 06/03/22 03:51 BUN 13 mg/dL (8-23) 06/03/22 03:51 Creatinine 0.9 mg/dL (0.5-0.9) 06/03/22 03:51 GFR Calculation 62.8 mL/min (90-130) L 06/03/22 03:51 Glucose 199 mg/dL (65-115) H 06/03/22 03:51 POC Glucose 141 mg/dL (70-110) H 06/04/22 06:46 Estimat Average Glucose 180 06/02/22 06:32 Hemoglobin A1c 7.9 % (4.0-6.0) H 06/02/22 06:32 Calculated Osmolality 292 mOsm/kg (285-295) 06/03/22 03:51 Calcium 9.1 mg/dL (8.5-10.5) 06/03/22 03:51 Phosphorus 2.6 mg/dL (2.5-4.5) 06/02/22 06:32 Magnesium 1.5 mg/dL (1.7-2.3) L 06/02/22 06:32 Iron 25 ug/dL (37-145) L 06/01/22 22:18 TIBC 248 mcg/dl 06/01/22 22:18 % Saturation 10.0 % (20-50) L 06/01/22 22:18 Unsat Iron Binding 223 ug/dL (112-347) 06/01/22 22:18 Total Bilirubin 0.3 mg/dL (0.15-1.2) 06/02/22 06:32 AST 18 U/L (0-32) 06/02/22 06:32 ALT 19 U/L (0-33) 06/02/22 06:32 Alkaline Phosphatase 69 U/L (35-105) 06/02/22 06:32 Troponin T Baseline 6 ng/L (0-10) 06/01/22 22:18 Troponin T 120 Minute 6.00 ng/L (0-10) 06/02/22 01:00 Delta Troponin T 0 ABS# (0-10) 06/02/22 01:00 Troponin T Hi Sens 6Hr 6.00 ng/L (0-10) 06/02/22 06:32 Troponin T Hi Sens 6Hr Delta 0 ng/L (0-12) 06/02/22 06:32 NT-Pro-B Natriuret Pep 111 pg/mL (0-125) 06/01/22 22:18 Total Protein 6.6 g/dL (6.6-8.7) 06/02/22 06:32 Albumin 3.5 g/dL (3.5-5.2) 06/02/22 06:32 Globulin 3.1 g/dL (1.3-4.6) 06/02/22 06:32 Triglycerides 127 mg/dL (0-150) 06/02/22 06:32 Cholesterol 140 mg/dL (0-200) 06/02/22 06:32 LDL Cholesterol, Calc 69 mg/dL (50-129) 06/02/22 06:32 Total VLDL Cholesterol 25 mg/dL (0-30) 06/02/22 06:32 HDL Cholesterol 46 mg/dL (60-100) L 06/02/22 06:32 Cholesterol/HDL Ratio 3.04 mg/dL (0.0-4.40) 06/02/22 06:32 Vitamin B12 819 pg/mL (232-1245) 06/01/22 22:18 Folate > 20.0 ng/mL (4.8-37.3) 06/01/22 22:18 Procalcitonin 0.09 ng/mL (0-0.5) 06/01/22 22:18 TSH 0.99 uIU/mL (0.27-4.20) 06/01/22 22:18 Urine Color Dark yellow (Yellow) 06/02/22 13:58 Urine Appearance Clear (CLEAR) 06/02/22 13:58 Urine pH 5 (5-7) 06/02/22 13:58 Ur Specific [place] 1.015 (1.005-1.030) 06/02/22 13:58 Urine Protein Neg (Negative) 06/02/22 13:58 Urine Glucose (UA) 4+ (Normal) H 06/02/22 13:58 Urine Ketones 1+ (Negative) H 06/02/22 13:58 Urine Blood Neg (Negative) 06/02/22 13:58 Urine Nitrate Negative (Negative) 06/02/22 13:58 Urine Bilirubin Neg (Negative) 06/02/22 13:58 Urine Urobilinogen Norm mg/dL (Negative) 06/02/22 13:58 Ur Leukocyte Esterase Negative (Negative) 06/02/22 13:58 Nasal Influ A H1 2008 PCR Not detected (NOT DETECT) 06/02/22 02:13 Adenovirus (PCR) Not detected (NOT DETECT) 06/02/22 02:13 C. pneumoniae DNA (PCR) Not detected (NOT DETECT) 06/02/22 02:13 Coronavirus 229E (PCR) Not detected (NOT DETECT) 06/02/22 02:13 Human Metapneumovir PCR Not detected (NOT DETECT) 06/02/22 02:13 Influenza A (H1) PCR Not detected (NOT DETECT) 06/02/22 02:13 Influenza A (H3) PCR Not detected (NOT DETECT) 06/02/22 02:13 Influenza Type A Ag negative (Negative) 06/01/22 22:18 Influenza Type A (PCR) Not detected (NOT DETECT) 06/02/22 02:13 Influenza Type B Ag negative (Negative) 06/01/22 22:18 Influenza Type B (PCR) Not detected (NOT DETECT) 06/02/22 02:13 M. pneumoniae (PCR) Not detected (NOT DETECT) 06/02/22 02:13 Parainfluenza 1 (PCR) Not detected (NOT DETECT) 06/02/22 02:13 Parainfluenza 2 (PCR) Not detected (NOT DETECT) 06/02/22 02:13 Parainfluenza 3 (PCR) Not detected (NOT DETECT) 06/02/22 02:13 Parainfluenza 4 (PCR) Not detected (NOT DETECT) 06/02/22 02:13 RSV Type A (PCR) Not detected (NOT DETECT) 06/02/22 02:13 RSV Type B (PCR) Not detected (NOT DETECT) 06/02/22 02:13 Entero/Rhino (PCR) Not detected (NOT DETECT) 06/02/22 02:13 SARS-CoV-2 (PCR) Not detected (NOT DETECT) 06/02/22 02:13 SARS-CoV-2 Ag (Rapid) negative (Negative) 06/01/22 22:18 Vitals Last Vital Signs Temp 97.9 F 06/04/22 08:00 Pulse 74 06/04/22 08:00 Resp 18 06/04/22 08:00 BP 117/78 06/04/22 08:00 Pulse Ox 92 06/04/22 08:00 O2 Del Method 06/04/22 08:00 O2 Flow Rate 2 06/04/22 03:15 Discharge Plan Discharge Patient Disposition: Home Condition: Stable Prescriptions: New levofloxacin 750 mg tablet 750 mg PO DAILY 7 Days Qty: 7 0RF methylprednisolone [Medrol (Ramy)] 4 mg tablets,dose pack See Rx Instructions .ROUTE .COMPLEX Qty: 21 0RF Rx Instructions: orally per package directions Paulette Ellipta 100-62.5-25 mcg blister with device 1 inh inhalation DAILY Qty: 28 5RF Continued atorvastatin 40 mg tablet 40 mg PO DAILY bupropion HCl [Wellbutrin SR] 150 mg tablet sustained-release 12 hr 150 mg PO BID donepezil 5 mg tablet 5 mg PO BEDTIME albuterol sulfate 2.5 mg /3 mL (0.083 %) solution for nebulization 2.5 mg inhalation Q4H PRN (Reason: Shortness Of Breath) omeprazole 40 mg capsule,delayed release(DR/EC) 40 mg PO DAILY aspirin 81 mg tablet,delayed release (DR/EC) 81 mg PO DAILY sertraline 25 mg tablet 25 mg PO DAILY albuterol sulfate [ProAir HFA] 90 mcg/actuation HFA aerosol inhaler 2 puff INHALATION Q4H PRN (Reason: Shortness Of Breath) insulin lispro [Humalog U-100 Insulin] 100 unit/mL Solution See Rx Instructions .ROUTE .COMPLEX Qty: 10 0RF Rx Instructions: per sliding scale [place] 6 mg Tablet 6 mg PO BID Ozempic 1 mg/dose (2 mg/1.5 mL) Pen Injector 1 mg SUBCUT Q7D Rx Instructions: On trazodone 300 mg tablet 300 mg PO BEDTIME gabapentin 300 mg capsule 600 mg PO BID oxybutynin chloride 5 mg tablet 5 mg PO DAILY metoclopramide HCl 10 mg tablet 10 mg PO PRN PRN (Reason: Nausea) Discharge Orders: Discharge Order (Routine); Ordered 06/04/22 Ordered By: Lacy Acuna Other Ambulatory Orders: Physical Therapy Outpatient in Home Eval and Treat Other (Order) Facility: [facility] - Location: Physical Therapy Ordered By: Lacy Acuna Referrals: Physical Therapy - Other [Provider Group] Cooper Villa [Primary Care Provider] - ( OFFICE WILL CALL WITH APPOINTMENT) DatarRodrigo MD [Physician] - 2 weeks Patient Instructions: Opioid Safety Discharge Attestations Time Spent in Discharge Care*: less than 30 min Quality Metrics Clinical Quality Measures [ No reported AMI, CVA or VTE this stay] Coding Level of Care Code Acute Code for Chg Fwd Diagnoses Type 2 diabetes mellitus E11.9 Sarcoidosis of lung D86.0 Community acquired pneumonia J18.9 Acute respiratory failure with hypoxia J96.01 Generalized weakness R53.1
[2022-06-04] MEDS: aspirin 81 mg EC Tablet PO (08:49)
[2022-06-04] MEDS: ferrous gluconate 324 mg Tablet PO (08:49)
[2022-06-04] MEDS: oxybutynin 5 mg Tablet PO (08:49)
[2022-06-04] MEDS: insulin lispro 100 unit/1 mL SUBCUT ×2 (08:49→12:32)
[2022-06-04] MEDS: benzonatate 100 mg Capsule PO (08:49)
[2022-06-04] MEDS: azithromycin 250 mg Tablet 500 MG PO (08:49)
[2022-06-04] MEDS: pantoprazole DR 40 mg Tablet PO (08:50)
[2022-06-04] MEDS: docusate sodium 100 mg Capsule PO (08:50)
[2022-06-04] MEDS: buPROPion SR (12 HR) 150 mg Tablet PO (08:50)
[2022-06-04] MEDS: gabapentin 300 mg Capsule PO (08:55)
--- NOTE | 2022-06-04 09:25 | PC.CHAP ---
Pastoral Care Encounter/Spiritual Assessment Type of Contact [] Declined hose tester visit [] Patient/Family/Request visit [] Outpatient visit [] Follow-up visit [] Physician referral [] Code/Alert [x Routine visit [] Staff referral [] Actively dying [] Patient sleeping [] Family support [] [] Out of room [] Palliative care [] [] Receiving care in room [] Pre-surgical visit [] Trauma [] Long length of stay [] ICU visit [] Other: Relational/Emotional Strength [] Patient feels connected with others/family/visitors/staff [] Distress [] Loneliness/isolation [] Abandonment Spirituality of Patient [] Person of Carlie [] Attends Roman Catholic of their Carlie [] Believes in Prayer [] Reads Bible or Nondenominational materials [] There are Spiritual issues to be addressed Book Author Interventions [] Prayer [x] Active listening [x] Non-anxious presence [x] Spiritual/emotional support [] Crisis/trauma care [] Spiritual counseling [] Bereavement support [] Provided bereavement packet [] Provided Bible/devotional materials [] Provided toy/stuffed animal, coloring book to patient or family member [] Provided Communion [] Anointing/[facility] [] Salvation [] Completed spiritual assessment [] Other: Impact on Illness or Injury [] Angry [] Fearful [] Anxious [] Often cries [] Exhaustion [] Unable to work [] Unable to attend episcopal [] Unable to walk/stand [] Unable to read [] Unable to drive [] Unable to eat/drink [] Unable to sleep [] Unable to be with family [] Patient intubated [] Other: Summary Time spent with patient
--- NOTE | 2022-06-04 11:06 | PC.SOCIAL ---
Imm update Imm updated with patient at bedside. Copy of page 2 provided. Patient verbalized understanding. Copy in chart initialed, dated and timed.
[2022-06-04 17:48] LABS: Glucose Point of Care 159 mg/dL (70-110)
== END 2022-06-04 14:49 | disposition home or self-care (01) | DRG 194 ==
LOC: ER 23:19 → MEDSURG 23:21
PROVIDERS: Admitting Provider Student in an Organized Health Care Education/Training Program; Emergency Provider Emergency Medicine; PCP Family Medicine; Visit Provider Internal Medicine
DX: J18.9 Pneumonia, unspecified organism (principal); J44.0 Chronic obstructive pulmonary disease with (acute) lower respiratory infection; D86.0 Sarcoidosis of lung; I69.928 Other speech and language deficits following unspecified cerebrovascular disease; I69 Sequelae of cerebrovascular disease; E11.9 Type 2 diabetes mellitus without complications; G24.01 Drug induced subacute dyskinesia; W19.XXXA Unspecified fall, initial encounter; Z79.51 Long term (current) use of inhaled steroids; Z79.4 Long term (current) use of insulin; Z79.891 Long term (current) use of opiate analgesic; Z86.16 Personal history of COVID-19; Z86.14 Personal history of Methicillin resistant Staphylococcus aureus infection; I10 Essential (primary) hypertension; F32.A Depression, unspecified; E83.42 Hypomagnesemia; D50.9 Iron deficiency anemia, unspecified; Z87.891 Personal history of nicotine dependence; Z87.440 Personal history of urinary (tract) infections; Z87.01 Personal history of pneumonia (recurrent); Z87.11 Personal history of peptic ulcer disease; E78.5 Hyperlipidemia, unspecified
CPT/HCPCS: 36415; 36416; 36600; 71045; 71250; 80048; 80053; 80061; 81003; 82607; 82746; 82962; 83036; 83540; 83550; 83735; 83880; 84100; 84145; 84443; 84484; 85025; 85378; 85610; 86403; 87040; 87426; 87449; 87486; 87581; 87633; 87804; 93005; 94640; 94760; 96365; 96372; 97116; 97161; 97530; 99285; J0456; J0696; J1650; J1815; J2930; J3475; J7050; J7613; J7626; J7644; Q0144